=== PATIENT | male | born 1935 | race Caucasian/White ===

== ENCOUNTER 2021-03-21 14:18 | Inpatient (IN) | payer MEDICARE ==
[~2021-03-21] VITALS: Ht 172.7 cm; Wt 56.0 kg
[2021-03-21] MEDS ORDERED: OMEG1CAP50 PO (15:24)
[2021-03-21] MEDS ORDERED: MELA3TAB4 PO (15:24)
[2021-03-21] MEDS ORDERED: CARV6.25 PO (15:24)
[2021-03-21] MEDS ORDERED: CHOL10004 PO (15:24)
[2021-03-21] MEDS ORDERED: CYAN100016 SL (15:24)
[2021-03-21] MEDS ORDERED: IBUP-1742 PO (15:24)
[2021-03-21] MEDS ORDERED: VITAMIN D PO (15:24)
[2021-03-21] MEDS ORDERED: OXYB5TAB10 PO (15:24)
[2021-03-21] MEDS ORDERED: OMEGA PO (15:24)
[2021-03-21] MEDS ORDERED: POLY10DR3 EACHEYE (15:24)
[2021-03-21] MEDS ORDERED: CARV25TA2 PO (15:24)
[2021-03-21] MEDS ORDERED: MULT-245 PO (15:24)
[2021-03-21] MEDS ORDERED: ACET325T21 PO (15:24)
[2021-03-21] MEDS ORDERED: LORA0.5T21 PO (15:24)
[2021-03-21] MEDS ORDERED: HYDR10SY16 PO (15:24)
[2021-03-21] MEDS ORDERED: CELE100C PO (15:24)
[2021-03-21] MEDS ORDERED: VIT1TABL34 PO (15:36)
[2021-03-21 19:33] VITALS: BP 138/69
[2021-03-21] MEDS: POLYMYXIN/TRIMETHOPRIM OPHTH SOLUTION 10ML BOTTLE. OU SCH (21:00)
[2021-03-21] MEDS: MELATONIN 3 MG TABLET PO SCH (21:00)
[2021-03-21] MEDS: CELECOXIB 100 MG CAPSULE PO SCH (21:00)
[2021-03-21] MEDS ORDERED: hydrOXYzine HCL 10 MG/5 ML SYRUP PO SCH (21:00)
--- NOTE | 2021-03-21 21:00 | NUR ---
Admission Note with Justification for Admission to [facility] Patient admitted to [facility] for protective oversight for emergency stabilization of acute psychiatric crisis. Pt admitted from: [facility] via [facility] ER Mode of arrival: EMS Accompanied By: EMS personnel Precipitating behaviors that initiated intake and admission: Aggressive towards staff, combative, reports SI with no plan, thinks he has been kidnapped and that people are going to kill him. Description of failure of out patient attempts at stabilization in previous setting list behavior and medication trials: ER, Duloxetine Behaviors and assessment findings upon admission: Patient initially pleasant. Alert to self, and year only. Takes a long time to answer orientation questions, and needs a lot of cueing. He is confused, disorganized, and tends to wander. He denies SI/HI/delusions at present time. He denies any pain or discomfort. Once patient was brought to his room for assessments and belongings inventory, he became very irritable, questioning why he needed to change and why we needed to see his skin. He became agitated and balled his fists up at male [employer]ING MECH[employer], but did not attempt to strike him. Skin check completed, no open areas or bruising on patient in the areas he would let us see. He refused to allow inspection of coccyx and flakita area. Lump on right side of head, patient states it was skin cancer. He says it was "about 4-5 years ago." When asked about treatment, he said "Yes" but couldn't elaborate on what the treatment was. Small healing laceration on left eyebrow from a fall a few days ago. Lung sounds clear and diminished bilaterally. Bowel sounds active, patient states he had a BM yesterday. Plan: Admit for protective oversight for adjustment and stabilization of medications, behaviors and mood. Intense treatment regimen including groups, medication adjustments, therapy, consistent regimen for ADL's, self care, and sleep hygiene. Daily monitoring by Inpatient staff, Psychiatry, and Medical Physician.
[2021-03-21] MEDS ORDERED: IBUPROFEN 200 MG TABLET PO PRN (21:15)
[2021-03-22] MEDS ORDERED: MAGNESIUM HYDROXIDE 2,400 MG/30 ML ORAL.SUSP. PO PRN (00:30)
[2021-03-22] MEDS ORDERED: MAG HYDROX/AL HYDROX/SIMETH 30 ML ORAL.SUSP PO PRN (00:30)
[2021-03-22] MEDS ORDERED: ACETAMINOPHEN 325 MG TABLET PO PRN (00:30)
[2021-03-22] MEDS ORDERED: METHYL SALICYLATE/MENTHOL TOPICAL OINTMENT 57GM TUBE. TP PRN (00:30)
--- NOTE | 2021-03-22 03:40 | NUR ---
After admission assessments were completed, patient was oriented to his room and introduced to his roommate. OR ASSISTANT helped patient get ready for bed, tucked him in and set bed alarm for safety. Shortly after, patient began to get agitated and started yelling at his roommate to "Get out of my house NOW!" Patient's roommate became irritable and requested to have a new room. Patient went back to sleep and is sleeping comfortably at present time. Will continue to monitor.
[2021-03-22 05:51] VITALS: BP 160/82
[2021-03-22 06:31] LABS: BILIRUBIN,URINE NEG (NEG); CLARITY,URINE CLEAR; COLOR,URINE STRAW; GLUCOSE,URINE NEG (NEG); NITRITE,URINE NEG (NEG); UROBILINOGEN,URINE 0.2 mg/dL (0.2 mg/dL)
[2021-03-22 06:32] LABS: BACTERIA,URINE 0 /HPF (0-FEW); RBC,URINE 0 /HPF (0-2); WBC,URINE 0 /HPF (0-4)
[2021-03-22] MEDS: LORazepam 0.5 MG TABLET PO PRN (08:03)
[2021-03-22] MEDS: CARVEDILOL 3.125 MG TABLET PO SCH ×2 (08:03→18:12)
[2021-03-22] MEDS: MULTIVITAMIN with MINERAL TABLET. PO SCH (08:04)
[2021-03-22] MEDS: hydrOXYzine HCL 10 MG TABLET PO SCH ×3 (08:04→19:49)
[2021-03-22] MEDS: OMEGA-3 FATTY ACIDS/FISH OIL 1,000 MG CAPSULE. PO SCH (08:04)
[2021-03-22] MEDS: MULTIVITAMIN I-VITE TABLET. PO SCH (08:04)
[2021-03-22] MEDS: CHOLECALCIFEROL (VITAMIN D3) 1,000 UNIT TABLET PO SCH (08:05)
[2021-03-22] MEDS: CYANOCOBALAMIN (VITAMIN B-12) 1,000 MCG TABLET. PO SCH (08:48)
[2021-03-22] MEDS: OXYBUTYNIN CHLORIDE 5 MG TABLET PO SCH (08:48)
[2021-03-22] MEDS: POLYMYXIN/TRIMETHOPRIM OPHTH SOLUTION 10ML BOTTLE. OU SCH ×3 (08:49→19:49)
[2021-03-22] MEDS: CELECOXIB 100 MG CAPSULE PO SCH ×2 (08:49→19:13)
[2021-03-22] MEDS ORDERED: VITAMIN D PO SCH (09:00)
[2021-03-22] MEDS ORDERED: OMEGA PO SCH (09:00)
[2021-03-22 10:15] LABS: BASO % 1 % (0-3); EOS # 0.1 x10^3/uL (0.0-0.7); EOS % 3 % (0-3); HEMATOCRIT 37.6 % (39.0-53.0); HEMOGLOBIN 12.4 g/dL (13.0-17.5); LYMPH # 1.4 x10^3/uL (1.0-4.8); LYMPH % 28 % (24-48); MEAN CORPUSCULAR HEMOGLOBIN 32 pg (25-35); MEAN CORPUSCULAR HGB CONC 33 g/dL (31-37); MEAN CORPUSCULAR VOLUME 95 fL (79-100); MONO # 0.5 x10^3/uL (0.0-1.1); MONO % 10 % (0-9); NEUT # 2.8 x10^3uL (1.8-7.7); NEUT % 58 % (31-73); PLATELET COUNT 200 x10^3/uL (140-400); RED BLOOD COUNT 3.94 x10^6/uL (4.30-5.70); RED CELL DISTRIBUTION WIDTH 13.5 % (11.5-14.5); WHITE BLOOD COUNT 4.8 x10^3/uL (4.0-11.0)
--- NOTE | 2021-03-22 11:10 | HP ---
ADMIT DATE: 03/21/2021 PSYCHIATRIC ADMISSION HISTORY AND EVALUATION This is a late entry for date of service 03/21, covers elements not covered in my initial note 03/21. I met with the patient evening of 03/21, at length discussed with nursing staff, reviewed the chart. Previously discussed the patient with Virgen Singh, demo coordinator, on 2 separate occasions. IDENTIFYING DATA: The patient is an 86-year-old male referred to us from [facility] by Dr. Hammonds, his primary care physician, on account of worsening confusion, paranoia, agitation, aggression, behaviors deemed dangerous, unmanageable at the facility. We have been contacted by the facility earlier because of escalating behaviors that were dangerous and unmanageable, but the patient could not be admitted to inpatient psychiatric service unless 2 psychiatrists concurred on this according to the documentation of his OA paperwork. He was evaluated by 2 psychiatrists at [facility] finally on 03/21 and both agreed that he needed inpatient psychiatric hospitalization and then he was transitioned to us from On license of [facility] where he had been finally admitted from the Emergency Room. CHIEF COMPLAINT: "I am okay." The patient oriented just to himself and as I met with him evening of 03/21, he told me he had been living here for years. HISTORY OF PRESENT ILLNESS: The patient has a history of major neurocognitive disorder, Alzheimer, vascular with delusion, depression, behavioral disturbance. He has been residing at [facility] for some time. Recently, he has been getting increasingly agitated, aggressive, paranoid, combative at staff and reportedly made suicidal statements. He believes he has been kidnapped and that people are going to kill him and he is reacting to that. He has had sleep and appetite changes. No active homicidal ideation other than marked aggression, all of which is worsened from about 1 week or so. CODE STATUS: FULL CODE. ALLERGIES: HYDROCODONE, OXYCODONE, AMIODARONE, CELEXA, ATORVASTATIN. MEDICAL HISTORY: Positive for coronary artery disease, coronary artery bypass graft, history of TIAs and recurrent falls, chronic renal disease stage III, CA prostate, glaucoma, history of endarterectomy. ACCU-CHEKS: None. DIET: Heart healthy. Takes medications whole. Ambulates with walker and has had a recent fall. CURRENT PSYCHOTROPIC: Cymbalta 20 mg at bedtime. FAMILY HISTORY: Noncontributory. SOCIAL HISTORY: No history of alcohol, drug abuse, physical, sexual or elder abuse. He is not known to be a perpetrator. 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 Reliability poor. MENTAL STATUS EXAM: Oriented to himself. Insight, judgment, recent and remote memory, attention, concentration, fund of knowledge poor consistent with his diagnosis. REACTION TO HOSPITALIZATION: The patient oblivious of this. ASSETS: Supportive living at the above facility. IMPRESSION: Major neurocognitive disorder, Alzheimer, vascular with delusion, depression, behavioral disturbance, anxiety disorder, unspecified; impulse control disorder, unspecified. Rest as above. PLAN: Admit to geropsychiatry unit at [facility]. I will see the patient daily individually from a psychiatric standpoint, medical followup with Dr. Selby/Dr. Kemp. Continue current psychotropics, observe baseline, adjust as clinically indicated. We will increase the Cymbalta to 40 mg a day. Consider using Remeron if insomnia is a problem since this should help some of his agitation as well. May use Seroquel if paranoia resulting in aggression persists despite the above and may consider Depakote as a mood stabilizer if all of the above interventions fail. ESTIMATED LENGTH OF STAY: 10-12 days. DISPOSITION: Plans back to care home when stable. GOLDEN GARRETT: Miguelito TID: [id number]
[2021-03-22 12:00] LABS: THYROID STIM HORMONE (TSH) 2.198 uIU/mL (0.358-3.740)
--- NOTE | 2021-03-22 12:30 | NUR ---
Nurse Note Patient this am irritable, knocking on doors trying to open. Redirection for patient was given but unsuccessful patient recievedprn Lorazepam 0/5 mg at 0800am. Patient up in day room socializing, awake with other patients. He has been compliant with taking medications whole one at a time.
[2021-03-22 16:15] VITALS: BP 146/82
--- NOTE | 2021-03-22 18:11 | EKG ---
[address] [address] Test Date: 2021-03-22 Test Time: 17:54:03 Pat Name: LÓPEZ ESCALANTE Department: Room: [address] [place] [address] Gender: M Dietary Assistant: : [id number] Requested By: ALFREDO HARDIN Order Number: [id number] Reading MD: Measurements Intervals [place] Rate: 67 P: 56 IN: 142 QRS: 68 QRSD: 102 T: 38 QT: 412 QTc: 438 Interpretive Statements SINUS RHYTHM R-S TRANSITION ZONE IN V LEADS DISPLACED TO THE RIGHT QRS(T) CONTOUR ABNORMALITY CONSIDER INFERIOR MYOCARDIAL DAMAGE POSSIBLY ABNORMAL ECG RI6.01 No previous ECG available for comparison
[2021-03-22] MEDS: MELATONIN 3 MG TABLET PO SCH (19:49)
--- NOTE | 2021-03-22 22:02 | PDOC ---
Exam Note: Fermin Note: Please also refer to the separate dictated note~for this date of service dictated separately.~Patient seen individually. Discussed the patient with Nursing staff reviewed the chart.~Reviewed interim history and current functioning. Reviewed vital signs,~Labs/ Radiology~and current medications noted below. Continue current treatment with the changes noted in the dictated addendum note Assessment: Vital Signs/I&O: Vital Signs Date Time Temp Pulse Resp B/P (MAP) Pulse Ox O2 Delivery O2 Flow Rate FiO2 03/22/21 18:12 71 146/82 03/22/21 16:15 97.6 18 96 03/22/21 05:51 Room Air Labs: Laboratory Tests Test 03/22/21 05:40 03/22/21 09:45 Urine Collection Type Clean catch Urine Color Straw Urine Clarity Clear Urine pH 7.0 Urine Specific [place] 1.015 Urine Protein Trace (NEG-TRACE) Urine Glucose (UA) Neg mg/dL (NEG) Urine Ketones (Stick) Neg mg/dL (NEG) Urine Blood Neg (NEG) Urine Nitrite Neg (NEG) Urine Bilirubin Neg (NEG) Urine Urobilinogen Dipstick 0.2 mg/dL (0.2 mg/dL) Urine Leukocyte Esterase Neg (NEG) Urine RBC 0 /HPF (0-2) Urine WBC 0 /HPF (0-4) Urine Bacteria 0 /HPF (0-FEW) White Blood Count 4.8 x10^3/uL (4.0-11.0) Red Blood Count 3.94 x10^6/uL (4.30-5.70) L Hemoglobin 12.4 g/dL (13.0-17.5) L Hematocrit 37.6 % (39.0-53.0) L Mean Corpuscular Volume 95 fL (79-100) Mean Corpuscular Hemoglobin 32 pg (25-35) Mean Corpuscular Hemoglobin Concent 33 g/dL (31-37) Red Cell Distribution Width 13.5 % (11.5-14.5) Platelet Count 200 x10^3/uL (140-400) Neutrophils (%) (Auto) 58 % (31-73) Lymphocytes (%) (Auto) 28 % (24-48) Monocytes (%) (Auto) 10 % (0-9) H Eosinophils (%) (Auto) 3 % (0-3) Basophils (%) (Auto) 1 % (0-3) Neutrophils # (Auto) 2.8 x10^3uL (1.8-7.7) Lymphocytes # (Auto) 1.4 x10^3/uL (1.0-4.8) Monocytes # (Auto) 0.5 x10^3/uL (0.0-1.1) Eosinophils # (Auto) 0.1 x10^3/uL (0.0-0.7) Basophils # (Auto) 0.0 x10^3/uL (0.0-0.2) D-Dimer (Donna) 2.54 mg/L (0.00-0.50) H Magnesium Level 2.3 mg/dL (1.8-2.4) Iron Level 70 ug/dL (65-175) Total Iron Binding Capacity 272 ug/dL (250-450) Iron Saturation 26 % (15-34) Triglycerides Level 134 mg/dL (0-150) Cholesterol Level 241 mg/dL (0-200) H LDL Cholesterol, Calculated 166 mg/dL (0-100) H VLDL Cholesterol, Calculated 26 mg/dL (0-40) Non-HDL Cholesterol Calculated 192 mg/dL (0-129) H HDL Cholesterol 49 mg/dL (40-60) Cholesterol/HDL Ratio 4.0 Thyroid Stimulating Hormone (TSH) 2.198 uIU/mL (0.358-3.740) Current Medications: Meds: Current Medications Medications (Trade) Dose Ordered Sig/Eve Route PRN Reason Start Time Stop Time Status Last Admin Dose Admin Carvedilol (Coreg) 3.125 mg BIDWMEALS PO 03/22/21 08:00 03/22/21 18:12 Vitamin D (Vitamin D3) 1,000 unit DAILY PO 03/22/21 09:00 03/22/21 08:05 Fish Oil (Fish Oil) 1,000 mg DAILY PO 03/22/21 09:00 03/22/21 08:04 Oxybutynin Chloride (Ditropan) 5 mg DAILY PO 03/22/21 09:00 03/22/21 08:48 Multivitamins/ Calcium (Thera-M Plus) 1 tab DAILY PO 03/22/21 09:00 03/22/21 08:04 Multivitamins/ Minerals (I-Leland) 1 tab DAILY PO 03/22/21 09:00 03/22/21 08:04 Hydroxyzine HCl (Atarax) 10 mg TID PO 03/22/21 09:00 03/22/21 19:49 I have reviewed the current psychotropics carefully including drug interactions. Risk benefit ratio favors no change other than as noted in my dictated progress note. Diagnosis: Problems: (1) Impulse control disorder, unspecified (2) Anxiety disorder, unspecified (3) Dementia, vascular, with depression (4) Dementia, vascular, with delusions (5) Dementia in Alzheimer's disease with depression (6) Dementia in Alzheimer's disease with delusions (7) Dementia of the Alzheimer's type with early onset with behavioral disturbance (8) Major neurocognitive disorder ALFREDO HARDIN MD Mar 22, 2021 22:02
--- NOTE | 2021-03-22 22:02 | PDOC ---
Exam Note: Fermin Note: This is late entry for 03/21/2021. Please also refer to the separate dictated note~for this date of service dictated separately.~Patient seen individually. Discussed the patient with Nursing staff reviewed the chart.~Reviewed interim history and current functioning. Reviewed vital signs,~Labs/ Radiology~and curre nt medications noted below. Continue current treatment with the changes noted in the dictated addendum note Assessment: Vital Signs/I&O: Vital Signs Date Time Temp Pulse Resp B/P (MAP) Pulse Ox O2 Delivery O2 Flow Rate FiO2 03/22/21 18:12 71 146/82 03/22/21 16:15 97.6 18 96 03/22/21 05:51 Room Air Labs: Laboratory Tests Test 03/22/21 05:40 03/22/21 09:45 Urine Collection Type Clean catch Urine Color Straw Urine Clarity Clear Urine pH 7.0 Urine Specific [place] 1.015 Urine Protein Trace (NEG-TRACE) Urine Glucose (UA) Neg mg/dL (NEG) Urine Ketones (Stick) Neg mg/dL (NEG) Urine Blood Neg (NEG) Urine Nitrite Neg (NEG) Urine Bilirubin Neg (NEG) Urine Urobilinogen Dipstick 0.2 mg/dL (0.2 mg/dL) Urine Leukocyte Esterase Neg (NEG) Urine RBC 0 /HPF (0-2) Urine WBC 0 /HPF (0-4) Urine Bacteria 0 /HPF (0-FEW) White Blood Count 4.8 x10^3/uL (4.0-11.0) Red Blood Count 3.94 x10^6/uL (4.30-5.70) L Hemoglobin 12.4 g/dL (13.0-17.5) L Hematocrit 37.6 % (39.0-53.0) L Mean Corpuscular Volume 95 fL (79-100) Mean Corpuscular Hemoglobin 32 pg (25-35) Mean Corpuscular Hemoglobin Concent 33 g/dL (31-37) Red Cell Distribution Width 13.5 % (11.5-14.5) Platelet Count 200 x10^3/uL (140-400) Neutrophils (%) (Auto) 58 % (31-73) Lymphocytes (%) (Auto) 28 % (24-48) Monocytes (%) (Auto) 10 % (0-9) H Eosinophils (%) (Auto) 3 % (0-3) Basophils (%) (Auto) 1 % (0-3) Neutrophils # (Auto) 2.8 x10^3uL (1.8-7.7) Lymphocytes # (Auto) 1.4 x10^3/uL (1.0-4.8) Monocytes # (Auto) 0.5 x10^3/uL (0.0-1.1) Eosinophils # (Auto) 0.1 x10^3/uL (0.0-0.7) Basophils # (Auto) 0.0 x10^3/uL (0.0-0.2) D-Dimer (Donna) 2.54 mg/L (0.00-0.50) H Magnesium Level 2.3 mg/dL (1.8-2.4) Iron Level 70 ug/dL (65-175) Total Iron Binding Capacity 272 ug/dL (250-450) Iron Saturation 26 % (15-34) Triglycerides Level 134 mg/dL (0-150) Cholesterol Level 241 mg/dL (0-200) H LDL Cholesterol, Calculated 166 mg/dL (0-100) H VLDL Cholesterol, Calculated 26 mg/dL (0-40) Non-HDL Cholesterol Calculated 192 mg/dL (0-129) H HDL Cholesterol 49 mg/dL (40-60) Cholesterol/HDL Ratio 4.0 Thyroid Stimulating Hormone (TSH) 2.198 uIU/mL (0.358-3.740) Current Medications: Meds: Current Medications Medications (Trade) Dose Ordered Sig/Eve Route PRN Reason Start Time Stop Time Status Last Admin Dose Admin Carvedilol (Coreg) 3.125 mg BIDWMEALS PO 03/22/21 08:00 03/22/21 18:12 Vitamin D (Vitamin D3) 1,000 unit DAILY PO 03/22/21 09:00 03/22/21 08:05 Fish Oil (Fish Oil) 1,000 mg DAILY PO 03/22/21 09:00 03/22/21 08:04 Oxybutynin Chloride (Ditropan) 5 mg DAILY PO 03/22/21 09:00 03/22/21 08:48 Multivitamins/ Calcium (Thera-M Plus) 1 tab DAILY PO 03/22/21 09:00 03/22/21 08:04 Multivitamins/ Minerals (I-Leland) 1 tab DAILY PO 03/22/21 09:00 03/22/21 08:04 Hydroxyzine HCl (Atarax) 10 mg TID PO 03/22/21 09:00 03/22/21 19:49 I have reviewed the current psychotropics carefully including drug interactions. Risk benefit ratio favors no change other than as noted in my dictated progress note. Diagnosis: Problems: (1) Major neurocognitive disorder (2) Dementia in Alzheimer's disease with delusions (3) Dementia in Alzheimer's disease with depression (4) Dementia of the Alzheimer's type with early onset with behavioral distu rbance (5) Dementia, vascular, with delusions (6) Dementia, vascular, with depression (7) Anxiety disorder, unspecified (8) Impulse control disorder, unspecified ALFREDO HARDIN MD Mar 22, 2021 22:02
--- NOTE | 2021-03-22 22:38 | NUR ---
Patient is wandering around the unit on assumption of care. He is restless, disorganized, confused. Patient has exhibited no irritability or agitation so far this shift. He denies any pain or discomfort when asked. Denies SI/HI. He has voiced no delusions. Patient appears to be sleeping comfortably at present time. Will continue to monitor.
[2021-03-23 01:06] LABS: HEMOGLOBIN A1C 5.5 % (4.8-5.6)
--- NOTE | 2021-03-23 03:39 | CONS ---
DATE OF CONSULTATION: 03/22/2021 REASON FOR CONSULTATION: Medical management. HISTORY OF PRESENT ILLNESS: The patient is an 86-year-old male patient who is a resident at [facility] and was referred to this unit by his primary care physician on account of worsening confusion, paranoia, agitation, aggression, behaviors were deemed dangerous, unmanageable at the facility. Apparently, the patient is known to have history of major neurocognitive disorder, Alzheimer, vascular with delusion, depression, behavioral disturbances and apparently has been living in assisted [facility] for some time; however, recently he has been getting increasingly agitated, aggressive, paranoid, combative at staff and reportedly made suicidal statements. He believes he has been kidnapped that people are going to kill him. He is reacting to that. PAST MEDICAL HISTORY: Significant for coronary artery disease, chronic kidney disease, stage III, recurrent falls, TIA, glaucoma and prostate cancer. PAST SURGICAL HISTORY: Significant for coronary artery bypass surgery and endarterectomy. ALLERGIES: HE IS ALLERGIC TO AMIODARONE, ATORVASTATIN, CITALOPRAM, HYDROCODONE AND OXYCODONE. MEDICATIONS: He is currently on the following medication omega 3 fatty acids 1000 mg once a day, carvedilol 3.125 mg twice a day with meals, Celebrex 50 mg twice a day, ibuprofen 200 mg every 6 hours, acetaminophen 650 mg every 6 hours, lorazepam 0.5 mg every 6 hours, hydroxyzine 10 mg in 5 mL syrup 3 times a day, Polymyxin B. one drop to each eye 3 times a day, oxybutynin chloride 5 mg daily, cyanocobalamin 1000 mcg tablet once a day, cholecalciferol-vitamin D3 25 mcg once a day, multivitamin 1 tablet once a day, melatonin 3 mg at bedtime, PreserVision AREDS tablet 1 tablet daily. FAMILY HISTORY: Noncontributory. SOCIAL HISTORY: He is a resident at [facility]. He does not smoke, drink alcohol or use recreational drugs. REVIEW OF SYSTEMS: Unobtainable. PHYSICAL EXAMINATION: GENERAL: When I examined him, he was sitting at the edge of the bed comfortably, in no apparent respiratory distress. There was no pallor, jaundice, cyanosis or thyromegaly. No jugular venous distention. No limb edema. VITAL SIGNS: His heart rate was 71, blood pressure is 146/82, temperature 97.6, respiratory rate was 18 and oxygen saturation was 96%. HEAD, EYES, EARS, NOSE, AND THROAT: Normocephalic, atraumatic. NECK: Supple. HEART: Showed normal first and second heart sound. No gallop or murmur. CHEST: Clear to auscultation. No crepitation or rhonchi. ABDOMEN: Slightly distended, soft, nontender. NEUROLOGIC: He is awake, alert, oriented to himself. All his cranial nerves are intact. He moves extremities without difficulty. He ambulates without assistance or assistive devices. LABORATORY DATA: This morning showed a white cell count of 4800, hemoglobin 12, hematocrit 37, MCV 95 and platelet count 200,000. His chemistry, his serum iron, total iron binding capacity and iron saturation all consistent with a replete iron stores. Serum triglycerides 134, total cholesterol was 241, LDL 166, VLDL was 26, HDL was 49. The ratio was 4. His TSH was 2.198. ASSESSMENT AND PLAN: In summary, this is an 86-year-old who was admitted on account of worsening confusion, paranoia, agitation and aggression. Medically, he seemed to be generally stable. Not all his medications are available, so I will review them once they become available and make any recommendations as needed. Thank you, Dr. Almazan, for allowing me to participate in the care of the patient. JAY GARRETT: Linda TID: [id number]
[2021-03-23 05:35] VITALS: BP 145/74
[2021-03-23] MEDS: CYANOCOBALAMIN (VITAMIN B-12) 1,000 MCG TABLET. PO SCH (08:33)
[2021-03-23] MEDS: OMEGA-3 FATTY ACIDS/FISH OIL 1,000 MG CAPSULE. PO SCH (08:33)
[2021-03-23] MEDS: CHOLECALCIFEROL (VITAMIN D3) 1,000 UNIT TABLET PO SCH (08:33)
[2021-03-23] MEDS: hydrOXYzine HCL 10 MG TABLET PO SCH ×3 (08:33→20:11)
[2021-03-23] MEDS: MULTIVITAMIN I-VITE TABLET. PO SCH (08:33)
[2021-03-23] MEDS: MULTIVITAMIN with MINERAL TABLET. PO SCH (08:34)
[2021-03-23] MEDS: OXYBUTYNIN CHLORIDE 5 MG TABLET PO SCH (08:34)
[2021-03-23] MEDS: CARVEDILOL 3.125 MG TABLET PO SCH ×2 (08:34→17:00)
[2021-03-23] MEDS: CELECOXIB 100 MG CAPSULE PO SCH (09:00)
[2021-03-23] MEDS: POLYMYXIN/TRIMETHOPRIM OPHTH SOLUTION 10ML BOTTLE. OU SCH ×2 (09:00→13:43)
[2021-03-23 10:59] LABS: ALBUMIN/GLOBULIN RATIO 1.1 (1.0-1.7); CALCIUM 9.4 mg/dL (8.5-10.1); CREATININE 2.7 mg/dL (0.7-1.3); GFR 22.6; POTASSIUM 4.4 mmol/L (3.5-5.1); TOTAL BILIRUBIN 0.5 mg/dL (0.2-1.0); TOTAL PROTEIN 7.6 g/dL (6.4-8.2)
[2021-03-23] MEDS: LORazepam 0.5 MG TABLET PO PRN (14:03)
--- NOTE | 2021-03-23 14:03 | NUR ---
Pt agitated after lunch. Attempted to take a male peers watch and glasses. Pt belligerent an was un redirectable. P escorted o day room. Ativan given. Took without difficulty.
[2021-03-23 16:05] VITALS: BP 146/82
--- NOTE | 2021-03-23 16:57 | NUR ---
Pt has been more calm and pleasant this afternoon.
[2021-03-23] MEDS: MELATONIN 3 MG TABLET PO SCH (20:12)
--- NOTE | 2021-03-23 21:59 | PDOC ---
Exam Note: Fermin Note: Please also refer to the separate dictated note~for this date of service dictated separately.~Patient seen individually. Discussed the patient with Nursing staff reviewed the chart.~Reviewed interim history and current functioning. Reviewed vital signs,~Labs/ Radiology~and current medications noted below. Continue current treatment with the changes noted in the dictated addendum note Assessment: Vital Signs/I&O: Vital Signs Date Time Temp Pulse Resp B/P (MAP) Pulse Ox O2 Delivery O2 Flow Rate FiO2 03/23/21 17:00 69 146/82 03/23/21 16:05 98.6 20 97 Room Air I & O 03/22/21 03/22/21 03/23/21 15:00 23:00 07:00 Intake Total 480 ml 240 ml Balance 480 ml 240 ml Labs: Laboratory Tests Test 03/23/21 10:20 Sodium Level 140 mmol/L (136-145) Potassium Level 4.4 mmol/L (3.5-5.1) Chloride Level 105 mmol/L (98-107) Carbon Dioxide Level 29 mmol/L (21-32) Anion Gap 6 (6-14) Blood Urea Nitrogen 54 mg/dL (8-26) H Creatinine 2.7 mg/dL (0.7-1.3) H Estimated GFR (Cockcroft-Gault) 22.6 BUN/Creatinine Ratio 20 (6-20) Glucose Level 71 mg/dL (70-99) Calcium Level 9.4 mg/dL (8.5-10.1) Total Bilirubin 0.5 mg/dL (0.2-1.0) Aspartate Amino Transferase (AST) 12 U/L (15-37) L Alanine Aminotransferase (ALT) 25 U/L (16-63) Alkaline Phosphatase 95 U/L (46-116) Total Protein 7.6 g/dL (6.4-8.2) Albumin 4.0 g/dL (3.4-5.0) Albumin/Globulin Ratio 1.1 (1.0-1.7) Current Medications: Meds: Laboratory Tests Test 03/23/21 10:20 Sodium Level 140 mmol/L Potassium Level 4.4 mmol/L Chloride Level 105 mmol/L Carbon Dioxide Level 29 mmol/L Anion Gap 6 Blood Urea Nitrogen 54 mg/dL Creatinine 2.7 mg/dL Estimated GFR (Cockcroft-Gault) 22.6 BUN/Creatinine Ratio 20 Glucose Level 71 mg/dL Calcium Level 9.4 mg/dL Total Bilirubin 0.5 mg/dL Aspartate Amino Transf (AST/SGOT) 12 U/L Alanine Aminotransferase (ALT/SGPT) 25 U/L Alkaline Phosphatase 95 U/L Total Protein 7.6 g/dL Albumin 4.0 g/dL Albumin/Globulin Ratio 1.1 Current Medications Medications (Trade) Dose Ordered Sig/Eve Route PRN Reason Start Time Stop Time Status Last Admin Dose Admin Acetaminophen (Tylenol) 650 mg PRN Q6HRS PRN PO PAIN/FEVER 03/21/21 20:00 Carvedilol (Coreg) 3.125 mg BIDWMEALS PO 03/22/21 08:00 03/23/21 17:00 Celecoxib (CeleBREX) 50 mg BID PO 03/21/21 21:00 03/23/21 19:59 DC Vitamin D (Vitamin D3) 1,000 unit DAILY PO 03/22/21 09:00 03/23/21 08:33 Hydroxyzine HCl (Atarax Oral Syrup) 10 mg TID PO 03/21/21 21:00 03/21/21 21:55 DC Ibuprofen (Motrin) 200 mg PRN Q6HRS PRN PO INFLAMMATION 03/21/21 21:15 Lorazepam (Ativan) 0.5 mg PRN Q6HRS PRN PO ANXIETY 03/21/21 20:00 03/23/21 14:59 DC 03/23/21 14:03 Melatonin (Melatonin) 3 mg QHS PO 03/21/21 21:00 03/23/21 20:12 Fish Oil (Fish Oil) 1,000 mg DAILY PO 03/22/21 09:00 03/23/21 08:33 Oxybutynin Chloride (Ditropan) 5 mg DAILY PO 03/22/21 09:00 03/23/21 08:34 Polymyxin/ Trimethoprim Sulfate (Polytrim) 1 drop TID OU 03/21/21 21:00 03/23/21 19:59 DC Cyanocobalamin (Vitamin B-12) 1,000 mcg DAILY PO 03/22/21 09:00 03/23/21 08:33 Multivitamins/ Calcium (Thera-M Plus) 1 tab DAILY PO 03/22/21 09:00 03/23/21 08:34 Multivitamins/ Minerals (I-Leland) 1 tab DAILY PO 03/22/21 09:00 03/23/21 08:33 Non-Formulary Medication ([Vitamin D + [place] 3] ) 1 tab DAILY PO 03/22/21 09:00 03/21/21 21:16 DC Hydroxyzine HCl (Atarax) 10 mg TID PO 03/22/21 09:00 03/23/21 20:11 Acetaminophen (Tylenol) 650 mg PRN Q6HRS PRN PO MILD PAIN / TEMP > 100.3'F 03/22/21 00:30 UNV Multi-Ingredient Ointment (Analgesic [place]) 1 sindi PRN QID PRN TP MUSCLE PAIN 03/22/21 00:30 Al Hydroxide/Mg Hydroxide (Mylanta Plus Xs) 15 ml PRN AFTMEALHC PRN PO DYSPEPSIA 03/22/21 00:30 Magnesium Hydroxide (Milk Of Magnesia) 2,400 mg PRN QHS PRN PO CONSTIPATION 03/22/21 00:30 Olanzapine (ZyPREXA ZYDIS) 2.5 mg PRN Q2HR PRN PO PSYCHOSIS 03/23/21 15:00 03/23/21 20:11 Sertraline HCl (Zoloft) 25 mg DAILY PO 03/24/21 09:00 03/27/21 08:00 Sertraline HCl (Zoloft) 50 mg DAILY PO 03/27/21 09:00 Current Medications Medications (Trade) Dose Ordered Sig/Eve Route PRN Reason Start Time Stop Time Status Last Admin Dose Admin Olanzapine (ZyPREXA ZYDIS) 2.5 mg PRN Q2HR PRN PO PSYCHOSIS 03/23/21 15:00 03/23/21 20:11 I have reviewed the current psychotropics carefully including drug interactions. Risk benefit ratio favors no change other than as noted in my dictated progress note. Diagnosis: Problems: (1) Impulse control disorder, unspecified (2) Anxiety disorder, unspecified (3) Dementia, vascular, with depression (4) Dementia, vascular, with delusions (5) Dementia in Alzheimer's disease with depression (6) Dementia in Alzheimer's disease with delusions (7) Dementia of the Alzheimer's type with early onset with behavioral disturbance (8) Major neurocognitive disorder ALFREDO HARDIN MD Mar 23, 2021:59
--- NOTE | 2021-03-23 22:44 | NUR ---
Patient is wandering around the unit on assumption of care. He is restless, disorganized, confused. Patient has exhibited no irritability or agitation so far this shift. He was cooperative with shower and HS cares. He denies any pain or discomfort when asked. Denies SI/HI. He has voiced no delusions. Patient appears to be sleeping comfortably at present time. Will continue to monitor.
[2021-03-24 05:39] VITALS: BP 159/79
[2021-03-24] MEDS: MULTIVITAMIN I-VITE TABLET. PO SCH (09:02)
[2021-03-24] MEDS: CYANOCOBALAMIN (VITAMIN B-12) 1,000 MCG TABLET. PO SCH (09:02)
[2021-03-24] MEDS: CHOLECALCIFEROL (VITAMIN D3) 1,000 UNIT TABLET PO SCH (09:03)
[2021-03-24] MEDS: CARVEDILOL 3.125 MG TABLET PO SCH ×2 (09:03→17:30)
[2021-03-24] MEDS: MULTIVITAMIN with MINERAL TABLET. PO SCH (09:03)
[2021-03-24] MEDS: OXYBUTYNIN CHLORIDE 5 MG TABLET PO SCH (09:03)
[2021-03-24] MEDS: hydrOXYzine HCL 10 MG TABLET PO SCH ×3 (09:03→20:48)
[2021-03-24] MEDS: OMEGA-3 FATTY ACIDS/FISH OIL 1,000 MG CAPSULE. PO SCH (09:03)
[2021-03-24] MEDS: SERTRALINE 25 MG TABLET. PO SCH (09:03)
--- NOTE | 2021-03-24 09:07 | PDOC ---
Exam Note: Fermin Note: This note is a late entry for 03/22/2021 covers elements not covered in my initial note. Subjective: The patient was seen individually in the evening of 03/22/2021 with Pat CAICEDO, discussed and reviewed the chart. He slept 5 hours previous night. The patient has not been aggressive, somewhat confused. He was combative and aggressive in the morning received Ativan p.r.n. and did better rest of the day. Review of Systems: Ambulates with walker. No CV, , pulmonary, eye, ENT system symptoms on review. Mental Status Exam: The patient is just oriented to himself. I met with him in his room, walking away almost midway in our conversations oblivious of the fact that he was just going away and I followed him. Insight and judgment, recent and remote memory, attention and concentration, fund of knowledge is poor consistent with his diagnoses. Laboratory Data: Reviewed. Impression: Major neurocognitive disorder Alzheimer vascular with delusion, depression, behavioral disturbance. Anxiety disorder unspecified. Impulse control disorder unspecified. Plan: No change from initial note. Assessment: Vital Signs/I&O: Vital Signs Date Time Temp Pulse Resp B/P (MAP) Pulse Ox O2 Delivery O2 Flow Rate FiO2 03/24/21 09:03 70 159/79 03/24/21 05:39 98.0 16 99 03/23/21 16:05 Room Air I & O 03/23/21 03/23/21 03/24/21 15:00 23:00 07:00 Intake Total 480 ml 150 ml 120 ml Balance 480 ml 150 ml 120 ml Labs: Laboratory Tests Test 03/23/21 10:20 Sodium Level 140 mmol/L (136-145) Potassium Level 4.4 mmol/L (3.5-5.1) Chloride Level 105 mmol/L (98-107) Carbon Dioxide Level 29 mmol/L (21-32) Anion Gap 6 (6-14) Blood Urea Nitrogen 54 mg/dL (8-26) H Creatinine 2.7 mg/dL (0.7-1.3) H Estimated GFR (Cockcroft-Gault) 22.6 BUN/Creatinine Ratio 20 (6-20) Glucose Level 71 mg/dL (70-99) Calcium Level 9.4 mg/dL (8.5-10.1) Total Bilirubin 0.5 mg/dL (0.2-1.0) Aspartate Amino Transferase (AST) 12 U/L (15-37) L Alanine Aminotransferase (ALT) 25 U/L (16-63) Alkaline Phosphatase 95 U/L (46-116) Total Protein 7.6 g/dL (6.4-8.2) Albumin 4.0 g/dL (3.4-5.0) Albumin/Globulin Ratio 1.1 (1.0-1.7) Current Medications: Meds: Laboratory Tests Test 03/23/21 10:20 Sodium Level 140 mmol/L Potassium Level 4.4 mmol/L Chloride Level 105 mmol/L Carbon Dioxide Level 29 mmol/L Anion Gap 6 Blood Urea Nitrogen 54 mg/dL Creatinine 2.7 mg/dL Estimated GFR (Cockcroft-Gault) 22.6 BUN/Creatinine Ratio 20 Glucose Level 71 mg/dL Calcium Level 9.4 mg/dL Total Bilirubin 0.5 mg/dL Aspartate Amino Transf (AST/SGOT) 12 U/L Alanine Aminotransferase (ALT/SGPT) 25 U/L Alkaline Phosphatase 95 U/L Total Protein 7.6 g/dL Albumin 4.0 g/dL Albumin/Globulin Ratio 1.1 Current Medications Medications (Trade) Dose Ordered Sig/Eve Route PRN Reason Start Time Stop Time Status Last Admin Dose Admin Acetaminophen (Tylenol) 650 mg PRN Q6HRS PRN PO PAIN/FEVER 03/21/21 20:00 Carvedilol (Coreg) 3.125 mg BIDWMEALS PO 03/22/21 08:00 03/24/21 09:03 Celecoxib (CeleBREX) 50 mg BID PO 03/21/21 21:00 03/23/21 19:59 DC Vitamin D (Vitamin D3) 1,000 unit DAILY PO 03/22/21 09:00 03/24/21 09:03 Hydroxyzine HCl (Atarax Oral Syrup) 10 mg TID PO 03/21/21 21:00 03/21/21 21:55 DC Ibuprofen (Motrin) 200 mg PRN Q6HRS PRN PO INFLAMMATION 03/21/21 21:15 Lorazepam (Ativan) 0.5 mg PRN Q6HRS PRN PO ANXIETY 03/21/21 20:00 03/23/21 14:59 DC 03/23/21 14:03 Melatonin (Melatonin) 3 mg QHS PO 03/21/21 21:00 03/23/21 20:12 Fish Oil (Fish Oil) 1,000 mg DAILY PO 03/22/21 09:00 03/24/21 09:03 Oxybutynin Chloride (Ditropan) 5 mg DAILY PO 03/22/21 09:00 03/24/21 09:03 Polymyxin/ Trimethoprim Sulfate (Polytrim) 1 drop TID OU 03/21/21 21:00 03/23/21 19:59 DC Cyanocobalamin (Vitamin B-12) 1,000 mcg DAILY PO 03/22/21 09:00 03/24/21 09:02 Multivitamins/ Calcium (Thera-M Plus) 1 tab DAILY PO 03/22/21 09:00 03/24/21 09:03 Multivitamins/ Minerals (I-Leland) 1 tab DAILY PO 03/22/21 09:00 03/24/21 09:02 Non-Formulary Medication ([Vitamin D + [place] 3] ) 1 tab DAILY PO 03/22/21 09:00 03/21/21 21:16 DC Hydroxyzine HCl (Atarax) 10 mg TID PO 03/22/21 09:00 03/24/21 09:03 Acetaminophen (Tylenol) 650 mg PRN Q6HRS PRN PO MILD PAIN / TEMP > 100.3'F 03/22/21 00:30 UNV Multi-Ingredient Ointment (Analgesic [place]) 1 sindi PRN QID PRN TP MUSCLE PAIN 03/22/21 00:30 Al Hydroxide/Mg Hydroxide (Mylanta Plus Xs) 15 ml PRN AFTMEALHC PRN PO DYSPEPSIA 03/22/21 00:30 Magnesium Hydroxide (Milk Of Magnesia) 2,400 mg PRN QHS PRN PO CONSTIPATION 03/22/21 00:30 Olanzapine (ZyPREXA ZYDIS) 2.5 mg PRN Q2HR PRN PO PSYCHOSIS 03/23/21 15:00 03/23/21 20:11 Sertraline HCl (Zoloft) 25 mg DAILY PO 03/24/21 09:00 03/27/21 08:00 03/24/21 09:03 Sertraline HCl (Zoloft) 50 mg DAILY PO 03/27/21 09:00 Current Medications Medications (Trade) Dose Ordered Sig/Eve Route PRN Reason Start Time Stop Time Status Last Admin Dose Admin Olanzapine (ZyPREXA ZYDIS) 2.5 mg PRN Q2HR PRN PO PSYCHOSIS 03/23/21 15:00 03/23/21 20:11 Sertraline HCl (Zoloft) 25 mg DAILY PO 03/24/21 09:00 03/27/21 08:00 03/24/21 09:03 I have reviewed the current psychotropics carefully including drug interactions. Risk benefit ratio favors no change other than as noted in my dictated progress note. Diagnosis: Problems: (1) Impulse control disorder, unspecified (2) Anxiety disorder, unspecified (3) Dementia, vascular, with depression (4) Dementia, vascular, with delusions (5) Dementia in Alzheimer's disease with depression (6) Dementia in Alzheimer's disease with delusions (7) Dementia of the Alzheimer's type with early onset with behavioral disturbance (8) Major neurocognitive disorder ALFREDO HARDIN MD Mar 24, 2021 09:07
--- NOTE | 2021-03-24 09:37 | PDOC ---
Exam Note: Fermin Note: This note is a late entry for 03/23/2021 covers elements not covered in my initial note. Subjective: The patient was seen individually in the evening of 03/23/2021 with Maru CAICEDO, discussed and reviewed the chart. He slept 5-3/4 hours previous night. Overall the patient has been somewhat anxious, abrasive this morning. Nursing staff had paged me as an emergency. He received Ativan p.r.n. but is a fall risk and we will change it to Zyprexa Zydis 2.5 mg q.2h. p.r.n. psychosis and agitation, max 10 mg in 24 hours. Review of Systems: No CV, , pulmonary, eye, ENT system symptoms on review. Mental Status Exam: The patient is just oriented to himself. Insight and judgment, recent and remote memory, attention and concentration, fund of knowledge is poor consistent with his diagnoses. Laboratory Data: Reviewed. Impression: Major neurocognitive disorder Alzheimer vascular with delusion, depression, behavioral disturbance. Anxiety disorder unspecified. Impulse control disorder unspecified. Plan: Start Zoloft 25 mg a day for 3 days, then 50 mg a day. Continue Atarax 10 mg t.i.d., melatonin 3 mg h.s. Make further adjustments in Zoloft as clinically indicated. Consider Seroquel as a mood stabilizer. Assessment: Vital Signs/I&O: Vital Signs Date Time Temp Pulse Resp B/P (MAP) Pulse Ox O2 Delivery O2 Flow Rate FiO2 03/24/21 09:03 70 159/79 03/24/21 05:39 98.0 16 99 03/23/21 16:05 Room Air I & O 03/23/21 03/23/21 03/24/21 15:00 23:00 07:00 Intake Total 480 ml 150 ml 120 ml Balance 480 ml 150 ml 120 ml Labs: Laboratory Tests Test 03/23/21 10:20 Sodium Level 140 mmol/L (136-145) Potassium Level 4.4 mmol/L (3.5-5.1) Chloride Level 105 mmol/L (98-107) Carbon Dioxide Level 29 mmol/L (21-32) Anion Gap 6 (6-14) Blood Urea Nitrogen 54 mg/dL (8-26) H Creatinine 2.7 mg/dL (0.7-1.3) H Estimated GFR (Cockcroft-Gault) 22.6 BUN/Creatinine Ratio 20 (6-20) Glucose Level 71 mg/dL (70-99) Calcium Level 9.4 mg/dL (8.5-10.1) Total Bilirubin 0.5 mg/dL (0.2-1.0) Aspartate Amino Transferase (AST) 12 U/L (15-37) L Alanine Aminotransferase (ALT) 25 U/L (16-63) Alkaline Phosphatase 95 U/L (46-116) Total Protein 7.6 g/dL (6.4-8.2) Albumin 4.0 g/dL (3.4-5.0) Albumin/Globulin Ratio 1.1 (1.0-1.7) Current Medications: Meds: Laboratory Tests Test 03/23/21 10:20 Sodium Level 140 mmol/L Potassium Level 4.4 mmol/L Chloride Level 105 mmol/L Carbon Dioxide Level 29 mmol/L Anion Gap 6 Blood Urea Nitrogen 54 mg/dL Creatinine 2.7 mg/dL Estimated GFR (Cockcroft-Gault) 22.6 BUN/Creatinine Ratio 20 Glucose Level 71 mg/dL Calcium Level 9.4 mg/dL Total Bilirubin 0.5 mg/dL Aspartate Amino Transf (AST/SGOT) 12 U/L Alanine Aminotransferase (ALT/SGPT) 25 U/L Alkaline Phosphatase 95 U/L Total Protein 7.6 g/dL Albumin 4.0 g/dL Albumin/Globulin Ratio 1.1 Current Medications Medications (Trade) Dose Ordered Sig/Eve Route PRN Reason Start Time Stop Time Status Last Admin Dose Admin Acetaminophen (Tylenol) 650 mg PRN Q6HRS PRN PO PAIN/FEVER 03/21/21 20:00 Carvedilol (Coreg) 3.125 mg BIDWMEALS PO 03/22/21 08:00 03/24/21 09:03 Celecoxib (CeleBREX) 50 mg BID PO 03/21/21 21:00 03/23/21 19:59 DC Vitamin D (Vitamin D3) 1,000 unit DAILY PO 03/22/21 09:00 03/24/21 09:03 Hydroxyzine HCl (Atarax Oral Syrup) 10 mg TID PO 03/21/21 21:00 03/21/21 21:55 DC Ibuprofen (Motrin) 200 mg PRN Q6HRS PRN PO INFLAMMATION 03/21/21 21:15 Lorazepam (Ativan) 0.5 mg PRN Q6HRS PRN PO ANXIETY 03/21/21 20:00 03/23/21 14:59 DC 03/23/21 14:03 Melatonin (Melatonin) 3 mg QHS PO 03/21/21 21:00 03/23/21 20:12 Fish Oil (Fish Oil) 1,000 mg DAILY PO 03/22/21 09:00 03/24/21 09:03 Oxybutynin Chloride (Ditropan) 5 mg DAILY PO 03/22/21 09:00 03/24/21 09:03 Polymyxin/ Trimethoprim Sulfate (Polytrim) 1 drop TID OU 03/21/21 21:00 03/23/21 19:59 DC Cyanocobalamin (Vitamin B-12) 1,000 mcg DAILY PO 03/22/21 09:00 03/24/21 09:02 Multivitamins/ Calcium (Thera-M Plus) 1 tab DAILY PO 03/22/21 09:00 03/24/21 09:03 Multivitamins/ Minerals (I-[place]) 1 tab DAILY PO 03/22/21 09:00 03/24/21 09:02 Non-Formulary Medication ([Vitamin D + [place] 3] ) 1 tab DAILY PO 03/22/21 09:00 03/21/21 21:16 DC Hydroxyzine HCl (Atarax) 10 mg TID PO 03/22/21 09:00 03/24/21 09:03 Acetaminophen (Tylenol) 650 mg PRN Q6HRS PRN PO MILD PAIN / TEMP > 100.3'F 03/22/21 00:30 UNV Multi-Ingredient Ointment (Analgesic [place]) 1 sindi PRN QID PRN TP MUSCLE PAIN 03/22/21 00:30 Al Hydroxide/Mg Hydroxide (Mylanta Plus Xs) 15 ml PRN AFTMEALHC PRN PO DYSPEPSIA 03/22/21 00:30 Magnesium Hydroxide (Milk Of Magnesia) 2,400 mg PRN QHS PRN PO CONSTIPATION 03/22/21 00:30 Olanzapine (ZyPREXA ZYDIS) 2.5 mg PRN Q2HR PRN PO PSYCHOSIS 03/23/21 15:00 03/23/21 20:11 Sertraline HCl (Zoloft) 25 mg DAILY PO 03/24/21 09:00 03/27/21 08:00 03/24/21 09:03 Sertraline HCl (Zoloft) 50 mg DAILY PO 03/27/21 09:00 Current Medications Medications (Trade) Dose Ordered Sig/Eve Route PRN Reason Start Time Stop Time Status Last Admin Dose Admin Olanzapine (ZyPREXA ZYDIS) 2.5 mg PRN Q2HR PRN PO PSYCHOSIS 03/23/21 15:00 03/23/21 20:11 Sertraline HCl (Zoloft) 25 mg DAILY PO 03/24/21 09:00 03/27/21 08:00 03/24/21 09:03 I have reviewed the current psychotropics carefully including drug interactions. Risk benefit ratio favors no change other than as noted in my dictated progress note. Diagnosis: Problems: (1) Impulse control disorder, unspecified (2) Anxiety disorder, unspecified (3) Dementia, vascular, with depression (4) Dementia, vascular, with delusions (5) Dementia in Alzheimer's disease with depression (6) Dementia in Alzheimer's disease with delusions (7) Dementia of the Alzheimer's type with early onset with behavioral disturbance (8) Major neurocognitive disorder ALFREDO HARDIN MD Mar 24, 2021 09:37
--- NOTE | 2021-03-24 10:37 | NUR ---
Ryan has [facility] medicare advantage plan. Call placed to [facility] to inform of Ryan's admission. Authorization number is [id number]. Ryan is authorized from 03/21 thru 03/25/21. Concurrent review is due on 03/25/21 by calling Maura Casper at [phone]. [phone]. Call reference number for today's call is Austin Loyd 03/24/21.
--- NOTE | 2021-03-24 12:49 | NUR ---
WEEKLY ACTIVITY THERAPY NOTE Date of Admission:03/21/21 Date of AT Assessment: TBD Precipitating behaviors that initiated intake and admission: Aggressive towards staff, combative, reports SI with no plan, thinks he has been kidnapped and that people are going to kill him. Goal aimed: TBD Initial Goal: TBD Weekly progress towards goal: NA Group participation level: NA Weekly highlights: arrived on [facility] Behaviors observed: new patient Plan: meet/asses pt Beneficial adaptations: observation needed
--- NOTE | 2021-03-24 13:15 | NUR ---
ACTIVITY THERAPY ASSESSMENT completed based on notes, observation and interview. AT introduced self to pt and he said that he was about to go to sleep. AT asked pt if she could ask him a few quick questions and pt became irritable. Pt said that he did not want AT around him anymore. AT concluded assessment with pt. Per notes pt has been resistive and irritable with staff. Pt is disorganized and requires lots of queuing to stay on task. Initial goal aimed to increase stress management and relaxation skills. pt will participate in at least five individual or group Activity Therapy sessions before discharge. Addendum: 04/07/21 at 1318 by JARED CARVAJAL ACT Goal changed 04/07:Pt will participate in at least three individual or group Activity Therapy sessions per week.
[2021-03-24] MEDS: ACETAMINOPHEN 325 MG TABLET PO PRN ×2 (15:49→20:51)
[2021-03-24 16:12] VITALS: BP 138/81
[2021-03-24] MEDS: DIVALPROEX 125 MG CAP.SPRINK PO SCH (17:31)
[2021-03-24] MEDS: MELATONIN 3 MG TABLET PO SCH (20:48)
--- NOTE | 2021-03-24 21:51 | NUR ---
Patient was already confused at the beginning of shift asking about someone who was going to come get him out of here. Patient would not understand when explained to that he has to spend the night at the hospital and has been spending other nights here. He wandered the hallways and was intermittently exit seeking, with some agitation and verbal aggression. Patient was redirected a few times and would comply sometimes or try to fight at other times. He also exhibited some inappropriateness, trying to grab female staff around their breasts or bottom area. He was compliant with all his medications including some prn medication to help with his agitation. Patient was eventually helped to his bed where he remained resting with eyes closed, breathing normally. Will continue to monitor. Addendum: 03/25/21 at 0013 by NEMO CANTOR RN Patient woke up to use the bathroom and when staff came to help, he asked one of the female staff if they could have sex with him; Upon refusal by the staff patient was verbally aggressive for a bit but complied with being tucked in, and then asked if the female staff could crawl into bed with her and was frustrated when the staff declined. He is currently in bed resting with eyes closed.
--- NOTE | 2021-03-24 22:05 | PDOC ---
Exam Note: Fermin Note: Please also refer to the separate dictated note~for this date of service dictated separately.~Patient seen individually. Discussed the patient with Nursing staff reviewed the chart.~Reviewed interim history and current functioning. Reviewed vital signs,~Labs/ Radiology~and current medications noted below. Continue current treatment with the changes noted in the dictated addendum note Assessment: Vital Signs/I&O: Vital Signs Date Time Temp Pulse Resp B/P (MAP) Pulse Ox O2 Delivery O2 Flow Rate FiO2 03/24/21 17:30 87 138/81 03/24/21 16:12 97.6 18 94 03/23/21 16:05 Room Air I & O 03/23/21 03/23/21 03/24/21 14:59 22:59 06:59 Intake Total 480 ml 150 ml 120 ml Balance 480 ml 150 ml 120 ml Current Medications: Meds: Current Medications Medications (Trade) Dose Ordered Sig/Eve Route PRN Reason Start Time Stop Time Status Last Admin Dose Admin Acetaminophen (Tylenol) 650 mg PRN Q6HRS PRN PO PAIN/FEVER 03/21/21 20:00 03/24/21 20:51 Carvedilol (Coreg) 3.125 mg BIDWMEALS PO 03/22/21 08:00 03/24/21 17:30 Celecoxib (CeleBREX) 50 mg BID PO 03/21/21 21:00 03/23/21 19:59 DC Vitamin D (Vitamin D3) 1,000 unit DAILY PO 03/22/21 09:00 03/24/21 09:03 Hydroxyzine HCl (Atarax Oral Syrup) 10 mg TID PO 03/21/21 21:00 03/21/21 21:55 DC Ibuprofen (Motrin) 200 mg PRN Q6HRS PRN PO INFLAMMATION 03/21/21 21:15 03/24/21 14:54 DC Lorazepam (Ativan) 0.5 mg PRN Q6HRS PRN PO ANXIETY 03/21/21 20:00 03/23/21 14:59 DC 03/23/21 14:03 Melatonin (Melatonin) 3 mg QHS PO 03/21/21 21:00 03/24/21 20:48 Fish Oil (Fish Oil) 1,000 mg DAILY PO 03/22/21 09:00 03/24/21 09:03 Oxybutynin Chloride (Ditropan) 5 mg DAILY PO 03/22/21 09:00 03/24/21 09:03 Polymyxin/ Trimethoprim Sulfate (Polytrim) 1 drop TID OU 03/21/21 21:00 03/23/21 19:59 DC Cyanocobalamin (Vitamin B-12) 1,000 mcg DAILY PO 03/22/21 09:00 03/24/21 09:02 Multivitamins/ Calcium (Thera-M Plus) 1 tab DAILY PO 03/22/21 09:00 03/24/21 09:03 Multivitamins/ Minerals (I-[place]) 1 tab DAILY PO 03/22/21 09:00 03/24/21 09:02 Non-Formulary Medication ([Vitamin D + [place] 3] ) 1 tab DAILY PO 03/22/21 09:00 03/21/21 21:16 DC Hydroxyzine HCl (Atarax) 10 mg TID PO 03/22/21 09:00 03/24/21 20:48 Acetaminophen (Tylenol) 650 mg PRN Q6HRS PRN PO MILD PAIN / TEMP > 100.3'F 03/22/21 00:30 UNV Multi-Ingredient Ointment (Analgesic [place]) 1 sindi PRN QID PRN TP MUSCLE PAIN 03/22/21 00:30 Al Hydroxide/Mg Hydroxide (Mylanta Plus Xs) 15 ml PRN AFTMEALHC PRN PO DYSPEPSIA 03/22/21 00:30 Magnesium Hydroxide (Milk Of Magnesia) 2,400 mg PRN QHS PRN PO CONSTIPATION 03/22/21 00:30 Olanzapine (ZyPREXA ZYDIS) 2.5 mg PRN Q2HR PRN PO PSYCHOSIS 03/23/21 15:00 03/24/21 20:51 Sertraline HCl (Zoloft) 25 mg DAILY PO 03/24/21 09:00 03/27/21 08:00 03/24/21 09:03 Sertraline HCl (Zoloft) 50 mg DAILY PO 03/27/21 09:00 Divalproex Sodium (Depakote) 125 mg DAILY PO 03/25/21 09:00 Divalproex Sodium (Depakote Sprinkles) 125 mg DAILYWSUP PO 03/24/21 17:00 03/24/21 17:31 Current Medications Medications (Trade) Dose Ordered Sig/Eve Route PRN Reason Start Time Stop Time Status Last Admin Dose Admin Sertraline HCl (Zoloft) 25 mg DAILY PO 03/24/21 09:00 03/27/21 08:00 03/24/21 09:03 Divalproex Sodium (Depakote Sprinkles) 125 mg DAILYWSUP PO 03/24/21 17:00 03/24/21 17:31 I have reviewed the current psychotropics carefully including drug interactions. Risk benefit ratio favors no change other than as noted in my dictated progress note. Diagnosis: Problems: (1) Impulse control disorder, unspecified (2) Anxiety disorder, unspecified (3) Dementia, vascular, with depression (4) Dementia, vascular, with delusions (5) Dementia in Alzheimer's disease with depression (6) Dementia in Alzheimer's disease with delusions (7) Dementia of the Alzheimer's type with early onset with behavioral disturbance (8) Major neurocognitive disorder ALFREDO HARDIN MD Mar 24, 2021 22:05
[2021-03-25 06:00] VITALS: BP 161/68
[2021-03-25] MEDS: CYANOCOBALAMIN (VITAMIN B-12) 1,000 MCG TABLET. PO SCH (08:16)
[2021-03-25] MEDS: hydrOXYzine HCL 10 MG TABLET PO SCH ×3 (08:16→20:40)
[2021-03-25] MEDS: DIVALPROEX 125 MG CAP.SPRINK PO SCH (08:16)
[2021-03-25] MEDS: CHOLECALCIFEROL (VITAMIN D3) 1,000 UNIT TABLET PO SCH (08:16)
[2021-03-25] MEDS: OXYBUTYNIN CHLORIDE 5 MG TABLET PO SCH (08:16)
[2021-03-25] MEDS: OMEGA-3 FATTY ACIDS/FISH OIL 1,000 MG CAPSULE. PO SCH (08:16)
[2021-03-25] MEDS: MULTIVITAMIN with MINERAL TABLET. PO SCH (08:16)
[2021-03-25] MEDS: MULTIVITAMIN I-VITE TABLET. PO SCH (08:17)
[2021-03-25] MEDS: CARVEDILOL 3.125 MG TABLET PO SCH ×2 (08:17→17:11)
[2021-03-25] MEDS: DIVALPROEX SODIUM 125 MG TABLET.DR. PO SCH (08:22)
[2021-03-25] MEDS: SERTRALINE 25 MG TABLET. PO SCH (08:30)
--- NOTE | 2021-03-25 08:45 | NUR ---
Nurse Note Patient was alisson redirected by CNAs, when he raised his legs up kicking at them. Patient was redirected with failed attempt . Patient verbal aggressive with staff received Zydis 2.5 mg at 0845. Patient is ambulating in day room after breakfast pleasantly confused. No behavior toward staff.socializing with staff and oher paients.
--- NOTE | 2021-03-25 14:00 | NUR ---
THOMAS left a voicemail for Maura @ [facility] asking for clarification on concurrent review for pt. THOMAS was instructed to do the review on 03/25; however, received a letter stating pt was approved to 03/27.
[2021-03-25 15:34] VITALS: BP 141/76
--- NOTE | 2021-03-25 17:58 | NUR ---
Nurse Note New order for Provera 2.5 mg 1 tablet po daily per telephone order from Dr. Almazan.Order read back to ordering doctor.Patient' son Kaushal Simpson was notified of new medication, son understood what the medication if ued for an had no further question.
[2021-03-25] MEDS: MELATONIN 3 MG TABLET PO SCH (20:39)
--- NOTE | 2021-03-25 21:56 | PDOC ---
Exam Note: Fermin Note: Please also refer to the separate dictated note~for this date of service dictated separately.~Patient seen individually. Discussed the patient with Nursing staff reviewed the chart.~Reviewed interim history and current functioning. Reviewed vital signs,~Labs/ Radiology~and current medications noted below. Continue current treatment with the changes noted in the dictated addendum note Assessment: Vital Signs/I&O: Vital Signs Date Time Temp Pulse Resp B/P (MAP) Pulse Ox O2 Delivery O2 Flow Rate FiO2 03/25/21 17:11 63 141/76 03/25/21 15:34 97.3 18 97 03/25/21 06:00 Room Air I & O 03/24/21 03/24/21 03/25/21 15:00 23:00 07:00 Intake Total 240 ml 480 ml Balance 240 ml 480 ml Current Medications: Meds: Current Medications Medications (Trade) Dose Ordered Sig/Eve Route PRN Reason Start Time Stop Time Status Last Admin Dose Admin Acetaminophen (Tylenol) 650 mg PRN Q6HRS PRN PO PAIN/FEVER 03/21/21 20:00 03/24/21 20:51 Carvedilol (Coreg) 3.125 mg BIDWMEALS PO 03/22/21 08:00 03/25/21 17:11 Celecoxib (CeleBREX) 50 mg BID PO 03/21/21 21:00 03/23/21 19:59 DC Vitamin D (Vitamin D3) 1,000 unit DAILY PO 03/22/21 09:00 03/25/21 08:16 Hydroxyzine HCl (Atarax Oral Syrup) 10 mg TID PO 03/21/21 21:00 03/21/21 21:55 DC Ibuprofen (Motrin) 200 mg PRN Q6HRS PRN PO INFLAMMATION 03/21/21 21:15 03/24/21 14:54 DC Lorazepam (Ativan) 0.5 mg PRN Q6HRS PRN PO ANXIETY 03/21/21 20:00 03/23/21 14:59 DC 03/23/21 14:03 Melatonin (Melatonin) 3 mg QHS PO 03/21/21 21:00 03/25/21 20:39 Fish Oil (Fish Oil) 1,000 mg DAILY PO 03/22/21 09:00 03/25/21 08:16 Oxybutynin Chloride (Ditropan) 5 mg DAILY PO 03/22/21 09:00 03/25/21 08:16 Polymyxin/ Trimethoprim Sulfate (Polytrim) 1 drop TID OU 03/21/21 21:00 03/23/21 19:59 DC Cyanocobalamin (Vitamin B-12) 1,000 mcg DAILY PO 03/22/21 09:00 03/25/21 08:16 Multivitamins/ Calcium (Thera-M Plus) 1 tab DAILY PO 03/22/21 09:00 03/25/21 08:16 Multivitamins/ Minerals (I-[place]) 1 tab DAILY PO 03/22/21 09:00 03/25/21 08:17 Non-Formulary Medication ([Vitamin D + [place] 3] ) 1 tab DAILY PO 03/22/21 09:00 03/21/21 21:16 DC Hydroxyzine HCl (Atarax) 10 mg TID PO 03/22/21 09:00 03/25/21 20:40 Acetaminophen (Tylenol) 650 mg PRN Q6HRS PRN PO MILD PAIN / TEMP > 100.3'F 03/22/21 00:30 UNV Multi-Ingredient Ointment (Analgesic [place]) 1 sindi PRN QID PRN TP MUSCLE PAIN 03/22/21 00:30 Al Hydroxide/Mg Hydroxide (Mylanta Plus Xs) 15 ml PRN AFTMEALHC PRN PO DYSPEPSIA 03/22/21 00:30 Magnesium Hydroxide (Milk Of Magnesia) 2,400 mg PRN QHS PRN PO CONSTIPATION 03/22/21 00:30 Olanzapine (ZyPREXA ZYDIS) 2.5 mg PRN Q2HR PRN PO PSYCHOSIS 03/23/21 15:00 03/25/21 08:15 Sertraline HCl (Zoloft) 25 mg DAILY PO 03/24/21 09:00 03/27/21 08:00 03/25/21 08:30 Sertraline HCl (Zoloft) 50 mg DAILY PO 03/27/21 09:00 Divalproex Sodium (Depakote) 125 mg DAILY PO 03/25/21 09:00 03/25/21 08:22 Divalproex Sodium (Depakote Sprinkles) 125 mg DAILYWSUP PO 03/24/21 17:00 03/25/21 08:16 Medroxyprogesterone Acetate (Provera) 2.5 mg DAILY PO 03/26/21 09:00 Current Medications Medications (Trade) Dose Ordered Sig/Eve Route PRN Reason Start Time Stop Time Status Last Admin Dose Admin Divalproex Sodium (Depakote) 125 mg DAILY PO 03/25/21 09:00 03/25/21 08:22 I have reviewed the current psychotropics carefully including drug interactions. Risk benefit ratio favors no change other than as noted in my dictated progress note. 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
[2021-03-26 06:10] VITALS: BP 158/85
--- NOTE | 2021-03-26 06:30 | NUR ---
Pain was calm and spent some time in the day up watching TV before retiring to his room. He was confused for the most part, thinking he was home, believing his parents live across the street and he will be going to see them. Patient was redirected and did not show any aggression. He showed no signs of pain, nausea or vomiting. After taking all his meds, he roamed around the hallways for a bit before retiring to his room where he rested in bed with eyes closed, breathing normally. Will continue to monitor.
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
[2021-03-26] MEDS: CHOLECALCIFEROL (VITAMIN D3) 1,000 UNIT TABLET PO SCH (08:34)
[2021-03-26] MEDS: OMEGA-3 FATTY ACIDS/FISH OIL 1,000 MG CAPSULE. PO SCH (08:34)
[2021-03-26] MEDS: DIVALPROEX SODIUM 125 MG TABLET.DR. PO SCH (08:34)
[2021-03-26] MEDS: MULTIVITAMIN I-VITE TABLET. PO SCH (08:34)
[2021-03-26] MEDS: CARVEDILOL 3.125 MG TABLET PO SCH ×2 (08:34→17:12)
[2021-03-26] MEDS: CYANOCOBALAMIN (VITAMIN B-12) 1,000 MCG TABLET. PO SCH (08:34)
[2021-03-26] MEDS: SERTRALINE 25 MG TABLET. PO SCH (08:34)
[2021-03-26] MEDS: hydrOXYzine HCL 10 MG TABLET PO SCH ×3 (08:34→20:31)
[2021-03-26] MEDS: OXYBUTYNIN CHLORIDE 5 MG TABLET PO SCH (08:34)
[2021-03-26] MEDS: MULTIVITAMIN with MINERAL TABLET. PO SCH (08:34)
--- NOTE | 2021-03-26 08:50 | NUR ---
THOMAS received a voicemail message from Maura @ [facility] clarifying pt concurrent review. Because Maura will be out at a training with the rest of her team, she has completed an administrative authorization to cover an extra two days for pt with a concurrent review due on 03/27. Maura requested that the review be left on her voicemail at x [phone].
--- NOTE | 2021-03-26 08:51 | PDOC ---
Exam Note: Fermin Note: This note is a late entry for 03/25/2021 covers elements not covered in my initial note. Subjective: The patient was seen individually in the evening of 03/25/2021 with Pat RN, discussed and reviewed the chart. He slept 4-3/4 hours previous night. The patient remains confused, sexually inappropriate at times with staff members asking female nursing aid to come to bed with him. Review of Systems: No CV, , pulmonary, eye, ENT system symptoms on review. Mental Status Exam: The patient is just oriented to himself. Insight and judgment, recent and remote memory, attention and concentration, fund of knowledge is poor consistent with his diagnoses. Laboratory Data: Reviewed. Impression: Major neurocognitive disorder Alzheimer vascular with delusion, depression, behavioral disturbance. Anxiety disorder unspecified. Impulse control disorder unspecified. Plan: Continue current psychotropics. CBC, CMP, valproic acid level to be done on 03/28. Rest unchanged. Assessment: Vital Signs/I&O: Vital Signs Date Time Temp Pulse Resp B/P (MAP) Pulse Ox O2 Delivery O2 Flow Rate FiO2 03/26/21 08:34 62 158/85 03/26/21 06:10 98.5 16 95 03/25/21 06:00 Room Air I & O 03/25/21 03/25/21 03/26/21 15:00 23:00 07:00 Intake Total 840 ml 600 ml Output Total 140 ml Balance 840 ml 460 ml Current Medications: Meds: Current Medications Medications (Trade) Dose Ordered Sig/Eve Route PRN Reason Start Time Stop Time Status Last Admin Dose Admin Acetaminophen (Tylenol) 650 mg PRN Q6HRS PRN PO PAIN/FEVER 03/21/21 20:00 03/24/21 20:51 Carvedilol (Coreg) 3.125 mg BIDWMEALS PO 03/22/21 08:00 03/26/21 08:34 Celecoxib (CeleBREX) 50 mg BID PO 03/21/21 21:00 03/23/21 19:59 DC Vitamin D (Vitamin D3) 1,000 unit DAILY PO 03/22/21 09:00 03/26/21 08:34 Hydroxyzine HCl (Atarax Oral Syrup) 10 mg TID PO 03/21/21 21:00 03/21/21 21:55 DC Ibuprofen (Motrin) 200 mg PRN Q6HRS PRN PO INFLAMMATION 03/21/21 21:15 03/24/21 14:54 DC Lorazepam (Ativan) 0.5 mg PRN Q6HRS PRN PO ANXIETY 03/21/21 20:00 03/23/21 14:59 DC 03/23/21 14:03 Melatonin (Melatonin) 3 mg QHS PO 03/21/21 21:00 03/25/21 20:39 Fish Oil (Fish Oil) 1,000 mg DAILY PO 03/22/21 09:00 03/26/21 08:34 Oxybutynin Chloride (Ditropan) 5 mg DAILY PO 03/22/21 09:00 03/26/21 08:34 Polymyxin/ Trimethoprim Sulfate (Polytrim) 1 drop TID OU 03/21/21 21:00 03/23/21 19:59 DC Cyanocobalamin (Vitamin B-12) 1,000 mcg DAILY PO 03/22/21 09:00 03/26/21 08:34 Multivitamins/ Calcium (Thera-M Plus) 1 tab DAILY PO 03/22/21 09:00 03/26/21 08:34 Multivitamins/ Minerals (I-[place]) 1 tab DAILY PO 03/22/21 09:00 03/26/21 08:34 Non-Formulary Medication ([Vitamin D + [place] 3] ) 1 tab DAILY PO 03/22/21 09:00 03/21/21 21:16 DC Hydroxyzine HCl (Atarax) 10 mg TID PO 03/22/21 09:00 03/26/21 08:34 Acetaminophen (Tylenol) 650 mg PRN Q6HRS PRN PO MILD PAIN / TEMP > 100.3'F 03/22/21 00:30 UNV Multi-Ingredient Ointment (Analgesic [place]) 1 sindi PRN QID PRN TP MUSCLE PAIN 03/22/21 00:30 Al Hydroxide/Mg Hydroxide (Mylanta Plus Xs) 15 ml PRN AFTMEALHC PRN PO DYSPEPSIA 03/22/21 00:30 Magnesium Hydroxide (Milk Of Magnesia) 2,400 mg PRN QHS PRN PO CONSTIPATION 03/22/21 00:30 Olanzapine (ZyPREXA ZYDIS) 2.5 mg PRN Q2HR PRN PO PSYCHOSIS 03/23/21 15:00 03/25/21 08:15 Sertraline HCl (Zoloft) 25 mg DAILY PO 03/24/21 09:00 03/27/21 08:00 03/26/21 08:34 Sertraline HCl (Zoloft) 50 mg DAILY PO 03/27/21 09:00 Divalproex Sodium (Depakote) 125 mg DAILY PO 03/25/21 09:00 03/26/21 08:34 Divalproex Sodium (Depakote Sprinkles) 125 mg DAILYWSUP PO 03/24/21 17:00 03/25/21 08:16 Medroxyprogesterone Acetate (Provera) 2.5 mg DAILY PO 03/26/21 09:00 03/26/21 08:34 Current Medications Medications (Trade) Dose Ordered Sig/Eve Route PRN Reason Start Time Stop Time Status Last Admin Dose Admin Divalproex Sodium (Depakote) 125 mg DAILY PO 03/25/21 09:00 03/26/21 08:34 Medroxyprogesterone Acetate (Provera) 2.5 mg DAILY PO 03/26/21 09:00 03/26/21 08:34 I have reviewed the current psychotropics carefully including drug interactions. Risk benefit ratio favors no change other than as noted in my dictated progress note. Diagnosis: Problems: (1) Impulse control disorder, unspecified (2) Anxiety disorder, unspecified (3) Dementia, vascular, with depression (4) Dementia, vascular, with delusions (5) Dementia in Alzheimer's disease with depression (6) Dementia in Alzheimer's disease with delusions (7) Dementia of the Alzheimer's type with early onset with behavioral disturbance (8) Major neurocognitive disorder ALFREDO HARDIN MD Mar 26, 2021 08:51
--- NOTE | 2021-03-26 09:38 | NUR ---
Pt A&O to name and only. He is confused and disorganized, at times pausing for a period before attempting to answer assessment questions. He is compliant with whole medications. Absent of SI/HI/VH/AH/delusions. He denies pain when asked. He is presently in the day room, his interactions with others have been appropriate. Plan of care continues, will pass to next shift.
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
[2021-03-26 15:44] VITALS: BP 133/80
[2021-03-26] MEDS: DIVALPROEX 125 MG CAP.SPRINK PO SCH (17:12)
[2021-03-26] MEDS: MELATONIN 3 MG TABLET PO SCH (20:31)
--- NOTE | 2021-03-26 22:24 | PDOC ---
Exam Note: Fermin Note: Please also refer to the separate dictated note~for this date of service dictated separately.~Patient seen individually. Discussed the patient with Nursing staff reviewed the chart.~Reviewed interim history and current functioning. Reviewed vital signs,~Labs/ Radiology~and current medications noted below. Continue current treatment with the changes noted in the dictated addendum note Assessment: Vital Signs/I&O: Vital Signs Date Time Temp Pulse Resp B/P (MAP) Pulse Ox O2 Delivery O2 Flow Rate FiO2 03/26/21 17:12 89 133/80 03/26/21 15:44 98.2 18 93 03/25/21 06:00 Room Air I & O 03/25/21 03/25/21 03/26/21 15:00 23:00 07:00 Intake Total 840 ml 600 ml Output Total 140 ml Balance 840 ml 460 ml Current Medications: Meds: Current Medications Medications (Trade) Dose Ordered Sig/Eve Route PRN Reason Start Time Stop Time Status Last Admin Dose Admin Acetaminophen (Tylenol) 650 mg PRN Q6HRS PRN PO PAIN/FEVER 03/21/21 20:00 03/24/21 20:51 Carvedilol (Coreg) 3.125 mg BIDWMEALS PO 03/22/21 08:00 03/26/21 17:12 Celecoxib (CeleBREX) 50 mg BID PO 03/21/21 21:00 03/23/21 19:59 DC Vitamin D (Vitamin D3) 1,000 unit DAILY PO 03/22/21 09:00 03/26/21 08:34 Hydroxyzine HCl (Atarax Oral Syrup) 10 mg TID PO 03/21/21 21:00 03/21/21 21:55 DC Ibuprofen (Motrin) 200 mg PRN Q6HRS PRN PO INFLAMMATION 03/21/21 21:15 03/24/21 14:54 DC Lorazepam (Ativan) 0.5 mg PRN Q6HRS PRN PO ANXIETY 03/21/21 20:00 03/23/21 14:59 DC 03/23/21 14:03 Melatonin (Melatonin) 3 mg QHS PO 03/21/21 21:00 03/26/21 20:31 Fish Oil (Fish Oil) 1,000 mg DAILY PO 03/22/21 09:00 03/26/21 08:34 Oxybutynin Chloride (Ditropan) 5 mg DAILY PO 03/22/21 09:00 03/26/21 08:34 Polymyxin/ Trimethoprim Sulfate (Polytrim) 1 drop TID OU 03/21/21 21:00 03/23/21 19:59 DC Cyanocobalamin (Vitamin B-12) 1,000 mcg DAILY PO 03/22/21 09:00 03/26/21 08:34 Multivitamins/ Calcium (Thera-M Plus) 1 tab DAILY PO 03/22/21 09:00 03/26/21 08:34 Multivitamins/ Minerals (I-[place]) 1 tab DAILY PO 03/22/21 09:00 03/26/21 08:34 Non-Formulary Medication ([Vitamin D + [place] 3] ) 1 tab DAILY PO 03/22/21 09:00 03/21/21 21:16 DC Hydroxyzine HCl (Atarax) 10 mg TID PO 03/22/21 09:00 03/26/21 16:04 DC 03/26/21 12:07 Acetaminophen (Tylenol) 650 mg PRN Q6HRS PRN PO MILD PAIN / TEMP > 100.3'F 03/22/21 00:30 UNV Multi-Ingredient Ointment (Analgesic [place]) 1 sindi PRN QID PRN TP MUSCLE PAIN 03/22/21 00:30 Al Hydroxide/Mg Hydroxide (Mylanta Plus Xs) 15 ml PRN AFTMEALHC PRN PO DYSPEPSIA 03/22/21 00:30 Magnesium Hydroxide (Milk Of Magnesia) 2,400 mg PRN QHS PRN PO CONSTIPATION 03/22/21 00:30 Olanzapine (ZyPREXA ZYDIS) 2.5 mg PRN Q2HR PRN PO PSYCHOSIS 03/23/21 15:00 03/26/21 11:18 Sertraline HCl (Zoloft) 25 mg DAILY PO 03/24/21 09:00 03/27/21 08:00 03/26/21 08:34 Sertraline HCl (Zoloft) 50 mg DAILY PO 03/27/21 09:00 Divalproex Sodium (Depakote) 125 mg DAILY PO 03/25/21 09:00 03/26/21 08:34 Divalproex Sodium (Depakote Sprinkles) 125 mg DAILYWSUP PO 03/24/21 17:00 03/26/21 17:12 Medroxyprogesterone Acetate (Provera) 2.5 mg DAILY PO 03/26/21 09:00 03/26/21 08:34 Hydroxyzine HCl (Atarax) 10 mg BID PO 03/26/21 21:00 03/28/21 23:55 03/26/21 20:31 Quetiapine Fumarate (SEROquel) 12.5 mg 0900,1700 PO 03/27/21 09:00 Hydroxyzine HCl (Atarax) 10 mg DAILY PO 03/29/21 09:00 03/31/21 09:01 Current Medications Medications (Trade) Dose Ordered Sig/Eve Route PRN Reason Start Time Stop Time Status Last Admin Dose Admin Medroxyprogesterone Acetate (Provera) 2.5 mg DAILY PO 03/26/21 09:00 03/26/21 08:34 Hydroxyzine HCl (Atarax) 10 mg BID PO 03/26/21 21:00 03/28/21 23:55 03/26/21 20:31 I have reviewed the current psychotropics carefully including drug interactions. Risk benefit ratio favors no change other than as noted in my dictated progress note. Diagnosis: Problems: (1) Impulse control disorder, unspecified (2) Anxiety disorder, unspecified (3) Dementia, vascular, with depression (4) Dementia, vascular, with delusions (5) Dementia in Alzheimer's disease with depression (6) Dementia in Alzheimer's disease with delusions (7) Dementia of the Alzheimer's type with early onset with behavioral disturbance (8) Major neurocognitive disorder ALFREDO HARDIN MD Mar 26, 2021 22:24
--- NOTE | 2021-03-26 23:38 | NUR ---
Pt sitting calmly in dayroom all evening. A/O to name and . Compliant with whole medications. No agitation or aggression.
[2021-03-27 05:49] VITALS: BP 117/77
[2021-03-27] MEDS: OMEGA-3 FATTY ACIDS/FISH OIL 1,000 MG CAPSULE. PO SCH (08:27)
[2021-03-27] MEDS: SERTRALINE 50 MG TABLET. PO SCH (08:27)
[2021-03-27] MEDS: MULTIVITAMIN I-VITE TABLET. PO SCH (08:27)
[2021-03-27] MEDS: DIVALPROEX SODIUM 125 MG TABLET.DR. PO SCH (08:27)
[2021-03-27] MEDS: CHOLECALCIFEROL (VITAMIN D3) 1,000 UNIT TABLET PO SCH (08:27)
[2021-03-27] MEDS: CYANOCOBALAMIN (VITAMIN B-12) 1,000 MCG TABLET. PO SCH (08:27)
[2021-03-27] MEDS: OXYBUTYNIN CHLORIDE 5 MG TABLET PO SCH (08:27)
[2021-03-27] MEDS: MULTIVITAMIN with MINERAL TABLET. PO SCH (08:27)
[2021-03-27] MEDS: hydrOXYzine HCL 10 MG TABLET PO SCH ×2 (08:27→20:35)
[2021-03-27] MEDS: QUEtiapine 25 MG TABLET. PO SCH ×2 (08:28→17:11)
[2021-03-27] MEDS: CARVEDILOL 3.125 MG TABLET PO SCH ×2 (08:28→17:11)
[2021-03-27 15:52] VITALS: BP 122/76
--- NOTE | 2021-03-27 16:28 | NUR ---
Nursing note: Patient in dinning room at time of AM med pass and assessment, medication taken whole. He is oriented to self only. Patient appears comfortable with no facial grimacing noted. He ambulates independently without difficulty, no aggression noted at this time. He is currently sitting in a chair in the up. Will continue to monitor.
[2021-03-27] MEDS: DIVALPROEX 125 MG CAP.SPRINK PO SCH (17:11)
[2021-03-27] MEDS: MELATONIN 3 MG TABLET PO SCH (20:35)
--- NOTE | 2021-03-27 22:02 | PDOC ---
Exam Note: Fermin Note: Please also refer to the separate dictated note~for this date of service dictated separately.~Patient seen individually. Discussed the patient with Nursing staff reviewed the chart.~Reviewed interim history and current functioning. Reviewed vital signs,~Labs/ Radiology~and current medications noted below. Continue current treatment with the changes noted in the dictated addendum note Assessment: Vital Signs/I&O: Vital Signs Date Time Temp Pulse Resp B/P (MAP) Pulse Ox O2 Delivery O2 Flow Rate FiO2 03/27/21 17:11 61 122/76 03/27/21 15:52 97.4 16 99 03/25/21 06:00 Room Air I & O 03/26/21 03/26/21 03/27/21 14:59 22:59 06:59 Intake Total 560 ml 360 ml 360 ml Balance 560 ml 360 ml 360 ml Current Medications: Meds: Current Medications Medications (Trade) Dose Ordered Sig/Eve Route PRN Reason Start Time Stop Time Status Last Admin Dose Admin Acetaminophen (Tylenol) 650 mg PRN Q6HRS PRN PO PAIN/FEVER 03/21/21 20:00 03/24/21 20:51 Carvedilol (Coreg) 3.125 mg BIDWMEALS PO 03/22/21 08:00 03/27/21 17:11 Celecoxib (CeleBREX) 50 mg BID PO 03/21/21 21:00 03/23/21 19:59 DC Vitamin D (Vitamin D3) 1,000 unit DAILY PO 03/22/21 09:00 03/27/21 08:27 Hydroxyzine HCl (Atarax Oral Syrup) 10 mg TID PO 03/21/21 21:00 03/21/21 21:55 DC Ibuprofen (Motrin) 200 mg PRN Q6HRS PRN PO INFLAMMATION 03/21/21 21:15 03/24/21 14:54 DC Lorazepam (Ativan) 0.5 mg PRN Q6HRS PRN PO ANXIETY 03/21/21 20:00 03/23/21 14:59 DC 03/23/21 14:03 Melatonin (Melatonin) 3 mg QHS PO 03/21/21 21:00 03/27/21 20:35 Fish Oil (Fish Oil) 1,000 mg DAILY PO 03/22/21 09:00 03/27/21 08:27 Oxybutynin Chloride (Ditropan) 5 mg DAILY PO 03/22/21 09:00 03/27/21 08:27 Polymyxin/ Trimethoprim Sulfate (Polytrim) 1 drop TID OU 03/21/21 21:00 03/23/21 19:59 DC Cyanocobalamin (Vitamin B-12) 1,000 mcg DAILY PO 03/22/21 09:00 03/27/21 08:27 Multivitamins/ Calcium (Thera-M Plus) 1 tab DAILY PO 03/22/21 09:00 03/27/21 08:27 Multivitamins/ Minerals (I-[place]) 1 tab DAILY PO 03/22/21 09:00 03/27/21 08:27 Non-Formulary Medication ([Vitamin D + [place] 3] ) 1 tab DAILY PO 03/22/21 09:00 03/21/21 21:16 DC Hydroxyzine HCl (Atarax) 10 mg TID PO 03/22/21 09:00 03/26/21 16:04 DC 03/26/21 12:07 Acetaminophen (Tylenol) 650 mg PRN Q6HRS PRN PO MILD PAIN / TEMP > 100.3'F 03/22/21 00:30 UNV Multi-Ingredient Ointment (Analgesic [place]) 1 sindi PRN QID PRN TP MUSCLE PAIN 03/22/21 00:30 Al Hydroxide/Mg Hydroxide (Mylanta Plus Xs) 15 ml PRN AFTMEALHC PRN PO DYSPEPSIA 03/22/21 00:30 Magnesium Hydroxide (Milk Of Magnesia) 2,400 mg PRN QHS PRN PO CONSTIPATION 03/22/21 00:30 03/27/21 12:39 Olanzapine (ZyPREXA ZYDIS) 2.5 mg PRN Q2HR PRN PO PSYCHOSIS 03/23/21 15:00 03/27/21 20:35 Sertraline HCl (Zoloft) 25 mg DAILY PO 03/24/21 09:00 03/27/21 08:00 DC 03/26/21 08:34 Sertraline HCl (Zoloft) 50 mg DAILY PO 03/27/21 09:00 03/27/21 08:27 Divalproex Sodium (Depakote) 125 mg DAILY PO 03/25/21 09:00 03/27/21 08:27 Divalproex Sodium (Depakote Sprinkles) 125 mg DAILYWSUP PO 03/24/21 17:00 03/27/21 17:11 Medroxyprogesterone Acetate (Provera) 2.5 mg DAILY PO 03/26/21 09:00 03/27/21 08:28 Hydroxyzine HCl (Atarax) 10 mg BID PO 03/26/21 21:00 03/28/21 23:55 03/27/21 20:35 Quetiapine Fumarate (SEROquel) 12.5 mg 0900,1700 PO 03/27/21 09:00 03/27/21 17:11 Hydroxyzine HCl (Atarax) 10 mg DAILY PO 03/29/21 09:00 03/31/21 09:01 Current Medications Medications (Trade) Dose Ordered Sig/Eve Route PRN Reason Start Time Stop Time Status Last Admin Dose Admin Sertraline HCl (Zoloft) 50 mg DAILY PO 03/27/21 09:00 03/27/21 08:27 Quetiapine Fumarate (SEROquel) 12.5 mg 0900,1700 PO 03/27/21 09:00 03/27/21 17:11 I have reviewed the current psychotropics carefully including drug interactions. Risk benefit ratio favors no change other than as noted in my dictated progress note. 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
--- NOTE | 2021-03-28 01:48 | NUR ---
Nursing Note Pt was irritable with staff, angry balled up fists at staff members. Was cooperative with meds Zyprexa given for agitation. Pleasant later in the shift.
[2021-03-28 07:05] LABS: BASO % 1 % (0-3); EOS # 0.2 x10^3/uL (0.0-0.7); EOS % 3 % (0-3); HEMATOCRIT 31.2 % (39.0-53.0); HEMOGLOBIN 10.4 g/dL (13.0-17.5); LYMPH # 1.7 x10^3/uL (1.0-4.8); LYMPH % 30 % (24-48); MEAN CORPUSCULAR HEMOGLOBIN 32 pg (25-35); MEAN CORPUSCULAR HGB CONC 34 g/dL (31-37); MEAN CORPUSCULAR VOLUME 94 fL (79-100); MONO # 0.7 x10^3/uL (0.0-1.1); MONO % 12 % (0-9); NEUT % 54 % (31-73); PLATELET COUNT 186 x10^3/uL (140-400); RED CELL DISTRIBUTION WIDTH 13.2 % (11.5-14.5); WHITE BLOOD COUNT 5.6 x10^3/uL (4.0-11.0)
[2021-03-28 07:06] LABS: ALBUMIN 3.3 g/dL (3.4-5.0); ALBUMIN/GLOBULIN RATIO 1.1 (1.0-1.7); ALK PHOS 83 U/L (46-116); ALT (SGPT) 18 U/L (16-63); ANION GAP 11 (6-14); AST (SGOT) 11 U/L (15-37); BLOOD UREA NITROGEN 63 mg/dL (8-26); BUN/CREATININE RATIO 22 (6-20); CALCIUM 8.5 mg/dL (8.5-10.1); CARBON DIOXIDE 24 mmol/L (21-32); CHLORIDE 110 mmol/L (98-107); CREATININE 2.9 mg/dL (0.7-1.3); GFR 20.8; GLUCOSE 94 mg/dL (70-99); POTASSIUM 4.6 mmol/L (3.5-5.1); SODIUM 145 mmol/L (136-145); TOTAL BILIRUBIN 0.4 mg/dL (0.2-1.0); TOTAL PROTEIN 6.4 g/dL (6.4-8.2)
[2021-03-28 07:11] LABS: VAL ACID 12 mcg/mL (50-100)
[2021-03-28] MEDS: OMEGA-3 FATTY ACIDS/FISH OIL 1,000 MG CAPSULE. PO SCH (08:18)
[2021-03-28] MEDS: CHOLECALCIFEROL (VITAMIN D3) 1,000 UNIT TABLET PO SCH (08:18)
[2021-03-28] MEDS: QUEtiapine 25 MG TABLET. PO SCH ×2 (08:18→17:29)
[2021-03-28] MEDS: OXYBUTYNIN CHLORIDE 5 MG TABLET PO SCH (08:18)
[2021-03-28] MEDS: CARVEDILOL 3.125 MG TABLET PO SCH ×2 (08:18→17:29)
[2021-03-28] MEDS: DIVALPROEX SODIUM 125 MG TABLET.DR. PO SCH (08:18)
[2021-03-28] MEDS: MULTIVITAMIN I-VITE TABLET. PO SCH (08:19)
[2021-03-28] MEDS: MULTIVITAMIN with MINERAL TABLET. PO SCH (08:19)
[2021-03-28] MEDS: CYANOCOBALAMIN (VITAMIN B-12) 1,000 MCG TABLET. PO SCH (08:19)
[2021-03-28] MEDS: SERTRALINE 50 MG TABLET. PO SCH (08:19)
[2021-03-28] MEDS: hydrOXYzine HCL 10 MG TABLET PO SCH ×2 (08:19→20:45)
--- NOTE | 2021-03-28 08:44 | PDOC ---
Exam Note: Fermin Note: This note is a late entry for 03/26/2021 covers elements not covered in my initial note. Subjective: The patient was seen individually in the evening of 03/26/2021 with Yaneth CAICEDO, discussed and reviewed the chart. He slept 6 hours previous night. The patient has had some sexually inappropriate behaviors and at one point was extremely aggressive, kicking the nursing aid previous evening. He is at times able to remember his date of in response to his name, compliant with his medications. At times he has been digging and grabbing at staff members especially when there is system with ADLs and at times was hitting staff member. Received Zyprexa at 11.30 a.m., difficult to redirect. Review of Systems: No CV, , pulmonary, eye, ENT system symptoms on review. Mental Status Exam: The patient is just oriented to himself. Insight and judgment, recent and remote memory, attention and concentration, fund of knowledge is poor consistent with his diagnoses. Laboratory Data: Reviewed. Impression: Major neurocognitive disorder Alzheimer vascular with delusion, depression, behavioral disturbance. Anxiety disorder unspecified. Impulse control disorder unspecified. Plan: Continue current psychotropics. Reduce Atarax from 10 mg t.i.d. to 10 mg b.i.d. and gradually taper it further and stop it. Start Seroquel 12.5 mg 9 a.m. and 5 p.m. Maintain Zoloft, Provera initiated for sexually inappropriate behaviors. Continue Depakote. Valproic acid level to be checked on 03/28. Adjust Depakote dosage further thereafter. Assessment: Vital Signs/I&O: Vital Signs Date Time Temp Pulse Resp B/P (MAP) Pulse Ox O2 Delivery O2 Flow Rate FiO2 03/28/21 08:18 61 122/76 03/27/21 15:52 97.4 16 99 03/25/21 06:00 Room Air I & O 03/27/21 03/27/21 03/28/21 15:00 23:00 07:00 Intake Total 960 ml 240 ml Balance 960 ml 240 ml Labs: Laboratory Tests Test 03/28/21 06:23 White Blood Count 5.6 x10^3/uL (4.0-11.0) Red Blood Count 3.30 x10^6/uL (4.30-5.70) L Hemoglobin 10.4 g/dL (13.0-17.5) L Hematocrit 31.2 % (39.0-53.0) L Mean Corpuscular Volume 94 fL (79-100) Mean Corpuscular Hemoglobin 32 pg (25-35) Mean Corpuscular Hemoglobin Concent 34 g/dL (31-37) Red Cell Distribution Width 13.2 % (11.5-14.5) Platelet Count 186 x10^3/uL (140-400) Neutrophils (%) (Auto) 54 % (31-73) Lymphocytes (%) (Auto) 30 % (24-48) Monocytes (%) (Auto) 12 % (0-9) H Eosinophils (%) (Auto) 3 % (0-3) Basophils (%) (Auto) 1 % (0-3) Neutrophils # (Auto) 3.0 x10^3uL (1.8-7.7) Lymphocytes # (Auto) 1.7 x10^3/uL (1.0-4.8) Monocytes # (Auto) 0.7 x10^3/uL (0.0-1.1) Eosinophils # (Auto) 0.2 x10^3/uL (0.0-0.7) Basophils # (Auto) 0.0 x10^3/uL (0.0-0.2) Sodium Level 145 mmol/L (136-145) Potassium Level 4.6 mmol/L (3.5-5.1) Chloride Level 110 mmol/L (98-107) H Carbon Dioxide Level 24 mmol/L (21-32) Anion Gap 11 (6-14) Blood Urea Nitrogen 63 mg/dL (8-26) H Creatinine 2.9 mg/dL (0.7-1.3) H Estimated GFR (Cockcroft-Gault) 20.8 BUN/Creatinine Ratio 22 (6-20) H Glucose Level 94 mg/dL (70-99) Calcium Level 8.5 mg/dL (8.5-10.1) Total Bilirubin 0.4 mg/dL (0.2-1.0) Aspartate Amino Transferase (AST) 11 U/L (15-37) L Alanine Aminotransferase (ALT) 18 U/L (16-63) Alkaline Phosphatase 83 U/L (46-116) Total Protein 6.4 g/dL (6.4-8.2) Albumin 3.3 g/dL (3.4-5.0) L Albumin/Globulin Ratio 1.1 (1.0-1.7) Valproic Acid Level 12 mcg/mL (50-100) L Valproic Acid Last Dose Date 03/27/2021 Valproic Acid Last Dose Time 1700 Current Medications: Meds: Laboratory Tests Test 03/28/21 06:23 White Blood Count 5.6 x10^3/uL Red Blood Count 3.30 x10^6/uL Hemoglobin 10.4 g/dL Hematocrit 31.2 % Mean Corpuscular Volume 94 fL Mean Corpuscular Hemoglobin 32 pg Mean Corpuscular Hemoglobin Concent 34 g/dL Red Cell Distribution Width 13.2 % Platelet Count 186 x10^3/uL Neutrophils (%) (Auto) 54 % Lymphocytes (%) (Auto) 30 % Monocytes (%) (Auto) 12 % Eosinophils (%) (Auto) 3 % Basophils (%) (Auto) 1 % Neutrophils # (Auto) 3.0 x10^3uL Lymphocytes # (Auto) 1.7 x10^3/uL Monocytes # (Auto) 0.7 x10^3/uL Eosinophils # (Auto) 0.2 x10^3/uL Basophils # (Auto) 0.0 x10^3/uL Sodium Level 145 mmol/L Potassium Level 4.6 mmol/L Chloride Level 110 mmol/L Carbon Dioxide Level 24 mmol/L Anion Gap 11 Blood Urea Nitrogen 63 mg/dL Creatinine 2.9 mg/dL Estimated GFR (Cockcroft-Gault) 20.8 BUN/Creatinine Ratio 22 Glucose Level 94 mg/dL Calcium Level 8.5 mg/dL Total Bilirubin 0.4 mg/dL Aspartate Amino Transf (AST/SGOT) 11 U/L Alanine Aminotransferase (ALT/SGPT) 18 U/L Alkaline Phosphatase 83 U/L Total Protein 6.4 g/dL Albumin 3.3 g/dL Albumin/Globulin Ratio 1.1 Valproic Acid (Depakene) Level 12 mcg/mL Valproic Acid Last Dose Date 03/27/2021 Valproic Acid Last Dose Time 1700 Current Medications Medications (Trade) Dose Ordered Sig/Eve Route PRN Reason Start Time Stop Time Status Last Admin Dose Admin Acetaminophen (Tylenol) 650 mg PRN Q6HRS PRN PO PAIN/FEVER 03/21/21 20:00 03/24/21 20:51 Carvedilol (Coreg) 3.125 mg BIDWMEALS PO 03/22/21 08:00 03/28/21 08:18 Celecoxib (CeleBREX) 50 mg BID PO 03/21/21 21:00 03/23/21 19:59 DC Vitamin D (Vitamin D3) 1,000 unit DAILY PO 03/22/21 09:00 03/28/21 08:18 Hydroxyzine HCl (Atarax Oral Syrup) 10 mg TID PO 03/21/21 21:00 03/21/21 21:55 DC Ibuprofen (Motrin) 200 mg PRN Q6HRS PRN PO INFLAMMATION 03/21/21 21:15 03/24/21 14:54 DC Lorazepam (Ativan) 0.5 mg PRN Q6HRS PRN PO ANXIETY 03/21/21 20:00 03/23/21 14:59 DC 03/23/21 14:03 Melatonin (Melatonin) 3 mg QHS PO 03/21/21 21:00 03/27/21 20:35 Fish Oil (Fish Oil) 1,000 mg DAILY PO 03/22/21 09:00 03/28/21 08:18 Oxybutynin Chloride (Ditropan) 5 mg DAILY PO 03/22/21 09:00 03/28/21 08:18 Polymyxin/ Trimethoprim Sulfate (Polytrim) 1 drop TID OU 03/21/21 21:00 03/23/21 19:59 DC Cyanocobalamin (Vitamin B-12) 1,000 mcg DAILY PO 03/22/21 09:00 03/28/21 08:19 Multivitamins/ Calcium (Thera-M Plus) 1 tab DAILY PO 03/22/21 09:00 03/28/21 08:19 Multivitamins/ Minerals (I-[place]) 1 tab DAILY PO 03/22/21 09:00 03/28/21 08:19 Non-Formulary Medication ([Vitamin D + [place] 3] ) 1 tab DAILY PO 03/22/21 09:00 03/21/21 21:16 DC Hydroxyzine HCl (Atarax) 10 mg TID PO 03/22/21 09:00 03/26/21 16:04 DC 03/26/21 12:07 Acetaminophen (Tylenol) 650 mg PRN Q6HRS PRN PO MILD PAIN / TEMP > 100.3'F 03/22/21 00:30 UNV Multi-Ingredient Ointment (Analgesic [place]) 1 sindi PRN QID PRN TP MUSCLE PAIN 03/22/21 00:30 Al Hydroxide/Mg Hydroxide (Mylanta Plus Xs) 15 ml PRN AFTMEALHC PRN PO DYSPEPSIA 03/22/21 00:30 Magnesium Hydroxide (Milk Of Magnesia) 2,400 mg PRN QHS PRN PO CONSTIPATION 03/22/21 00:30 03/27/21 12:39 Olanzapine (ZyPREXA ZYDIS) 2.5 mg PRN Q2HR PRN PO PSYCHOSIS 03/23/21 15:00 03/27/21 20:35 Sertraline HCl (Zoloft) 25 mg DAILY PO 03/24/21 09:00 03/27/21 08:00 DC 03/26/21 08:34 Sertraline HCl (Zoloft) 50 mg DAILY PO 03/27/21 09:00 03/28/21 08:19 Divalproex Sodium (Depakote) 125 mg DAILY PO 03/25/21 09:00 03/28/21 08:18 Divalproex Sodium (Depakote Sprinkles) 125 mg DAILYWSUP PO 03/24/21 17:00 03/27/21 17:11 Medroxyprogesterone Acetate (Provera) 2.5 mg DAILY PO 03/26/21 09:00 03/28/21 08:19 Hydroxyzine HCl (Atarax) 10 mg BID PO 03/26/21 21:00 03/28/21 23:55 03/28/21 08:19 Quetiapine Fumarate (SEROquel) 12.5 mg 0900,1700 PO 03/27/21 09:00 03/28/21 08:18 Hydroxyzine HCl (Atarax) 10 mg DAILY PO 03/29/21 09:00 03/31/21 09:01 Current Medications Medications (Trade) Dose Ordered Sig/Eve Route PRN Reason Start Time Stop Time Status Last Admin Dose Admin Sertraline HCl (Zoloft) 50 mg DAILY PO 03/27/21 09:00 03/28/21 08:19 Quetiapine Fumarate (SEROquel) 12.5 mg 0900,1700 PO 03/27/21 09:00 03/28/21 08:18 I have reviewed the current psychotropics carefully including drug interactions. Risk benefit ratio favors no change other than as noted in my dictated progress note. Diagnosis: Problems: (1) Impulse control disorder, unspecified (2) Anxiety disorder, unspecified (3) Dementia, vascular, with depression (4) Dementia, vascular, with delusions (5) Dementia in Alzheimer's disease with depression (6) Dementia in Alzheimer's disease with delusions (7) Dementia of the Alzheimer's type with early onset with behavioral disturbance (8) Major neurocognitive disorder ALFREDO HARDIN MD Mar 28, 2021 08:44
--- NOTE | 2021-03-28 09:11 | PDOC ---
Exam Note: Fermin Note: This note is a late entry for 03/27/2021 covers elements not covered in my initial note. Subjective: The patient was seen individually in the evening of 03/27/2021 with Teena CAICEDO, discussed and reviewed the chart. He slept 7-1/4 hours previous night. The patient remains confused. No sexually aggressive behaviors noted. Review of Systems: No CV, , pulmonary, eye, ENT system symptoms on review. Reliability poor. Mental Status Exam: The patient is just oriented to himself. Insight and judgment, recent and remote memory, attention and concentration, fund of knowledge is poor consistent with his diagnoses. Laboratory Data: Reviewed. Impression: Major neurocognitive disorder Alzheimer vascular with delusion, depression, behavioral disturbance. Anxiety disorder unspecified. Impulse control disorder unspecified. Plan: Continue current psychotropics. Assessment: Vital Signs/I&O: Vital Signs Date Time Temp Pulse Resp B/P (MAP) Pulse Ox O2 Delivery O2 Flow Rate FiO2 03/28/21 08:18 61 122/76 03/27/21 15:52 97.4 16 99 03/25/21 06:00 Room Air I & O 03/27/21 03/27/21 03/28/21 15:00 23:00 07:00 Intake Total 960 ml 240 ml Balance 960 ml 240 ml Labs: Laboratory Tests Test 03/28/21 06:23 White Blood Count 5.6 x10^3/uL (4.0-11.0) Red Blood Count 3.30 x10^6/uL (4.30-5.70) L Hemoglobin 10.4 g/dL (13.0-17.5) L Hematocrit 31.2 % (39.0-53.0) L Mean Corpuscular Volume 94 fL (79-100) Mean Corpuscular Hemoglobin 32 pg (25-35) Mean Corpuscular Hemoglobin Concent 34 g/dL (31-37) Red Cell Distribution Width 13.2 % (11.5-14.5) Platelet Count 186 x10^3/uL (140-400) Neutrophils (%) (Auto) 54 % (31-73) Lymphocytes (%) (Auto) 30 % (24-48) Monocytes (%) (Auto) 12 % (0-9) H Eosinophils (%) (Auto) 3 % (0-3) Basophils (%) (Auto) 1 % (0-3) Neutrophils # (Auto) 3.0 x10^3uL (1.8-7.7) Lymphocytes # (Auto) 1.7 x10^3/uL (1.0-4.8) Monocytes # (Auto) 0.7 x10^3/uL (0.0-1.1) Eosinophils # (Auto) 0.2 x10^3/uL (0.0-0.7) Basophils # (Auto) 0.0 x10^3/uL (0.0-0.2) Sodium Level 145 mmol/L (136-145) Potassium Level 4.6 mmol/L (3.5-5.1) Chloride Level 110 mmol/L (98-107) H Carbon Dioxide Level 24 mmol/L (21-32) Anion Gap 11 (6-14) Blood Urea Nitrogen 63 mg/dL (8-26) H Creatinine 2.9 mg/dL (0.7-1.3) H Estimated GFR (Cockcroft-Gault) 20.8 BUN/Creatinine Ratio 22 (6-20) H Glucose Level 94 mg/dL (70-99) Calcium Level 8.5 mg/dL (8.5-10.1) Total Bilirubin 0.4 mg/dL (0.2-1.0) Aspartate Amino Transferase (AST) 11 U/L (15-37) L Alanine Aminotransferase (ALT) 18 U/L (16-63) Alkaline Phosphatase 83 U/L (46-116) Total Protein 6.4 g/dL (6.4-8.2) Albumin 3.3 g/dL (3.4-5.0) L Albumin/Globulin Ratio 1.1 (1.0-1.7) Valproic Acid Level 12 mcg/mL (50-100) L Valproic Acid Last Dose Date 03/27/2021 Valproic Acid Last Dose Time 1700 Current Medications: Meds: Laboratory Tests Test 03/28/21 06:23 White Blood Count 5.6 x10^3/uL Red Blood Count 3.30 x10^6/uL Hemoglobin 10.4 g/dL Hematocrit 31.2 % Mean Corpuscular Volume 94 fL Mean Corpuscular Hemoglobin 32 pg Mean Corpuscular Hemoglobin Concent 34 g/dL Red Cell Distribution Width 13.2 % Platelet Count 186 x10^3/uL Neutrophils (%) (Auto) 54 % Lymphocytes (%) (Auto) 30 % Monocytes (%) (Auto) 12 % Eosinophils (%) (Auto) 3 % Basophils (%) (Auto) 1 % Neutrophils # (Auto) 3.0 x10^3uL Lymphocytes # (Auto) 1.7 x10^3/uL Monocytes # (Auto) 0.7 x10^3/uL Eosinophils # (Auto) 0.2 x10^3/uL Basophils # (Auto) 0.0 x10^3/uL Sodium Level 145 mmol/L Potassium Level 4.6 mmol/L Chloride Level 110 mmol/L Carbon Dioxide Level 24 mmol/L Anion Gap 11 Blood Urea Nitrogen 63 mg/dL Creatinine 2.9 mg/dL Estimated GFR (Cockcroft-Gault) 20.8 BUN/Creatinine Ratio 22 Glucose Level 94 mg/dL Calcium Level 8.5 mg/dL Total Bilirubin 0.4 mg/dL Aspartate Amino Transf (AST/SGOT) 11 U/L Alanine Aminotransferase (ALT/SGPT) 18 U/L Alkaline Phosphatase 83 U/L Total Protein 6.4 g/dL Albumin 3.3 g/dL Albumin/Globulin Ratio 1.1 Valproic Acid (Depakene) Level 12 mcg/mL Valproic Acid Last Dose Date 03/27/2021 Valproic Acid Last Dose Time 1700 Current Medications Medications (Trade) Dose Ordered Sig/Eve Route PRN Reason Start Time Stop Time Status Last Admin Dose Admin Acetaminophen (Tylenol) 650 mg PRN Q6HRS PRN PO PAIN/FEVER 03/21/21 20:00 03/24/21 20:51 Carvedilol (Coreg) 3.125 mg BIDWMEALS PO 03/22/21 08:00 03/28/21 08:18 Celecoxib (CeleBREX) 50 mg BID PO 03/21/21 21:00 03/23/21 19:59 DC Vitamin D (Vitamin D3) 1,000 unit DAILY PO 03/22/21 09:00 03/28/21 08:18 Hydroxyzine HCl (Atarax Oral Syrup) 10 mg TID PO 03/21/21 21:00 03/21/21 21:55 DC Ibuprofen (Motrin) 200 mg PRN Q6HRS PRN PO INFLAMMATION 03/21/21 21:15 03/24/21 14:54 DC Lorazepam (Ativan) 0.5 mg PRN Q6HRS PRN PO ANXIETY 03/21/21 20:00 03/23/21 14:59 DC 03/23/21 14:03 Melatonin (Melatonin) 3 mg QHS PO 03/21/21 21:00 03/27/21 20:35 Fish Oil (Fish Oil) 1,000 mg DAILY PO 03/22/21 09:00 03/28/21 08:18 Oxybutynin Chloride (Ditropan) 5 mg DAILY PO 03/22/21 09:00 03/28/21 08:18 Polymyxin/ Trimethoprim Sulfate (Polytrim) 1 drop TID OU 03/21/21 21:00 03/23/21 19:59 DC Cyanocobalamin (Vitamin B-12) 1,000 mcg DAILY PO 03/22/21 09:00 03/28/21 08:19 Multivitamins/ Calcium (Thera-M Plus) 1 tab DAILY PO 03/22/21 09:00 03/28/21 08:19 Multivitamins/ Minerals (I-[place]) 1 tab DAILY PO 03/22/21 09:00 03/28/21 08:19 Non-Formulary Medication ([Vitamin D + [place] 3] ) 1 tab DAILY PO 03/22/21 09:00 03/21/21 21:16 DC Hydroxyzine HCl (Atarax) 10 mg TID PO 03/22/21 09:00 03/26/21 16:04 DC 03/26/21 12:07 Acetaminophen (Tylenol) 650 mg PRN Q6HRS PRN PO MILD PAIN / TEMP > 100.3'F 03/22/21 00:30 UNV Multi-Ingredient Ointment (Analgesic [place]) 1 sindi PRN QID PRN TP MUSCLE PAIN 03/22/21 00:30 Al Hydroxide/Mg Hydroxide (Mylanta Plus Xs) 15 ml PRN AFTMEALHC PRN PO DYSPEPSIA 03/22/21 00:30 Magnesium Hydroxide (Milk Of Magnesia) 2,400 mg PRN QHS PRN PO CONSTIPATION 03/22/21 00:30 03/27/21 12:39 Olanzapine (ZyPREXA ZYDIS) 2.5 mg PRN Q2HR PRN PO PSYCHOSIS 03/23/21 15:00 03/27/21 20:35 Sertraline HCl (Zoloft) 25 mg DAILY PO 03/24/21 09:00 03/27/21 08:00 DC 03/26/21 08:34 Sertraline HCl (Zoloft) 50 mg DAILY PO 03/27/21 09:00 03/28/21 08:19 Divalproex Sodium (Depakote) 125 mg DAILY PO 03/25/21 09:00 03/28/21 08:18 Divalproex Sodium (Depakote Sprinkles) 125 mg DAILYWSUP PO 03/24/21 17:00 03/27/21 17:11 Medroxyprogesterone Acetate (Provera) 2.5 mg DAILY PO 03/26/21 09:00 03/28/21 08:19 Hydroxyzine HCl (Atarax) 10 mg BID PO 03/26/21 21:00 03/28/21 23:55 03/28/21 08:19 Quetiapine Fumarate (SEROquel) 12.5 mg 0900,1700 PO 03/27/21 09:00 03/28/21 08:18 Hydroxyzine HCl (Atarax) 10 mg DAILY PO 03/29/21 09:00 03/31/21 09:01 I have reviewed the current psychotropics carefully including drug interactions. Risk benefit ratio favors no change other than as noted in my dictated progress note. Diagnosis: Problems: (1) Impulse control disorder, unspecified (2) Anxiety disorder, unspecified (3) Dementia, vascular, with depression (4) Dementia, vascular, with delusions (5) Dementia in Alzheimer's disease with depression (6) Dementia in Alzheimer's disease with delusions (7) Dementia of the Alzheimer's type with early onset with behavioral disturbance (8) Major neurocognitive disorder ALFREDO HARDIN MD Mar 28, 2021 09:11
[2021-03-28 16:03] VITALS: BP 160/82
[2021-03-28] MEDS: DIVALPROEX 125 MG CAP.SPRINK PO SCH (17:29)
[2021-03-28] MEDS: MELATONIN 3 MG TABLET PO SCH (20:45)
--- NOTE | 2021-03-28 22:07 | PDOC ---
Exam Note: Fermin Note: Please also refer to the separate dictated note~for this date of service dictated separately.~Patient seen individually. Discussed the patient with Nursing staff reviewed the chart.~Reviewed interim history and current functioning. Reviewed vital signs,~Labs/ Radiology~and current medications noted below. Continue current treatment with the changes noted in the dictated addendum note Assessment: Vital Signs/I&O: Vital Signs Date Time Temp Pulse Resp B/P (MAP) Pulse Ox O2 Delivery O2 Flow Rate FiO2 03/28/21 17:29 59 160/82 03/28/21 16:03 98.1 20 99 Room Air I & O 03/27/21 03/27/21 03/28/21 15:00 23:00 07:00 Intake Total 960 ml 240 ml Balance 960 ml 240 ml Labs: Laboratory Tests Test 03/28/21 06:23 White Blood Count 5.6 x10^3/uL (4.0-11.0) Red Blood Count 3.30 x10^6/uL (4.30-5.70) L Hemoglobin 10.4 g/dL (13.0-17.5) L Hematocrit 31.2 % (39.0-53.0) L Mean Corpuscular Volume 94 fL (79-100) Mean Corpuscular Hemoglobin 32 pg (25-35) Mean Corpuscular Hemoglobin Concent 34 g/dL (31-37) Red Cell Distribution Width 13.2 % (11.5-14.5) Platelet Count 186 x10^3/uL (140-400) Neutrophils (%) (Auto) 54 % (31-73) Lymphocytes (%) (Auto) 30 % (24-48) Monocytes (%) (Auto) 12 % (0-9) H Eosinophils (%) (Auto) 3 % (0-3) Basophils (%) (Auto) 1 % (0-3) Neutrophils # (Auto) 3.0 x10^3uL (1.8-7.7) Lymphocytes # (Auto) 1.7 x10^3/uL (1.0-4.8) Monocytes # (Auto) 0.7 x10^3/uL (0.0-1.1) Eosinophils # (Auto) 0.2 x10^3/uL (0.0-0.7) Basophils # (Auto) 0.0 x10^3/uL (0.0-0.2) Sodium Level 145 mmol/L (136-145) Potassium Level 4.6 mmol/L (3.5-5.1) Chloride Level 110 mmol/L (98-107) H Carbon Dioxide Level 24 mmol/L (21-32) Anion Gap 11 (6-14) Blood Urea Nitrogen 63 mg/dL (8-26) H Creatinine 2.9 mg/dL (0.7-1.3) H Estimated GFR (Cockcroft-Gault) 20.8 BUN/Creatinine Ratio 22 (6-20) H Glucose Level 94 mg/dL (70-99) Calcium Level 8.5 mg/dL (8.5-10.1) Total Bilirubin 0.4 mg/dL (0.2-1.0) Aspartate Amino Transferase (AST) 11 U/L (15-37) L Alanine Aminotransferase (ALT) 18 U/L (16-63) Alkaline Phosphatase 83 U/L (46-116) Total Protein 6.4 g/dL (6.4-8.2) Albumin 3.3 g/dL (3.4-5.0) L Albumin/Globulin Ratio 1.1 (1.0-1.7) Valproic Acid Level 12 mcg/mL (50-100) L Valproic Acid Last Dose Date 03/27/2021 Valproic Acid Last Dose Time 1700 Current Medications: Meds: Laboratory Tests Test 03/28/21 06:23 White Blood Count 5.6 x10^3/uL Red Blood Count 3.30 x10^6/uL Hemoglobin 10.4 g/dL Hematocrit 31.2 % Mean Corpuscular Volume 94 fL Mean Corpuscular Hemoglobin 32 pg Mean Corpuscular Hemoglobin Concent 34 g/dL Red Cell Distribution Width 13.2 % Platelet Count 186 x10^3/uL Neutrophils (%) (Auto) 54 % Lymphocytes (%) (Auto) 30 % Monocytes (%) (Auto) 12 % Eosinophils (%) (Auto) 3 % Basophils (%) (Auto) 1 % Neutrophils # (Auto) 3.0 x10^3uL Lymphocytes # (Auto) 1.7 x10^3/uL Monocytes # (Auto) 0.7 x10^3/uL Eosinophils # (Auto) 0.2 x10^3/uL Basophils # (Auto) 0.0 x10^3/uL Sodium Level 145 mmol/L Potassium Level 4.6 mmol/L Chloride Level 110 mmol/L Carbon Dioxide Level 24 mmol/L Anion Gap 11 Blood Urea Nitrogen 63 mg/dL Creatinine 2.9 mg/dL Estimated GFR (Cockcroft-Gault) 20.8 BUN/Creatinine Ratio 22 Glucose Level 94 mg/dL Calcium Level 8.5 mg/dL Total Bilirubin 0.4 mg/dL Aspartate Amino Transf (AST/SGOT) 11 U/L Alanine Aminotransferase (ALT/SGPT) 18 U/L Alkaline Phosphatase 83 U/L Total Protein 6.4 g/dL Albumin 3.3 g/dL Albumin/Globulin Ratio 1.1 Valproic Acid (Depakene) Level 12 mcg/mL Valproic Acid Last Dose Date 03/27/2021 Valproic Acid Last Dose Time 1700 Current Medications Medications (Trade) Dose Ordered Sig/Eve Route PRN Reason Start Time Stop Time Status Last Admin Dose Admin Acetaminophen (Tylenol) 650 mg PRN Q6HRS PRN PO PAIN/FEVER 03/21/21 20:00 03/24/21 20:51 Carvedilol (Coreg) 3.125 mg BIDWMEALS PO 03/22/21 08:00 03/28/21 17:29 Celecoxib (CeleBREX) 50 mg BID PO 03/21/21 21:00 03/23/21 19:59 DC Vitamin D (Vitamin D3) 1,000 unit DAILY PO 03/22/21 09:00 03/28/21 08:18 Hydroxyzine HCl (Atarax Oral Syrup) 10 mg TID PO 03/21/21 21:00 03/21/21 21:55 DC Ibuprofen (Motrin) 200 mg PRN Q6HRS PRN PO INFLAMMATION 03/21/21 21:15 03/24/21 14:54 DC Lorazepam (Ativan) 0.5 mg PRN Q6HRS PRN PO ANXIETY 03/21/21 20:00 03/23/21 14:59 DC 03/23/21 14:03 Melatonin (Melatonin) 3 mg QHS PO 03/21/21 21:00 03/28/21 20:45 Fish Oil (Fish Oil) 1,000 mg DAILY PO 03/22/21 09:00 03/28/21 08:18 Oxybutynin Chloride (Ditropan) 5 mg DAILY PO 03/22/21 09:00 03/28/21 08:18 Polymyxin/ Trimethoprim Sulfate (Polytrim) 1 drop TID OU 03/21/21 21:00 03/23/21 19:59 DC Cyanocobalamin (Vitamin B-12) 1,000 mcg DAILY PO 03/22/21 09:00 03/28/21 08:19 Multivitamins/ Calcium (Thera-M Plus) 1 tab DAILY PO 03/22/21 09:00 03/28/21 08:19 Multivitamins/ Minerals (I-[place]) 1 tab DAILY PO 03/22/21 09:00 03/28/21 08:19 Non-Formulary Medication ([Vitamin D + [place] 3] ) 1 tab DAILY PO 03/22/21 09:00 03/21/21 21:16 DC Hydroxyzine HCl (Atarax) 10 mg TID PO 03/22/21 09:00 03/26/21 16:04 DC 03/26/21 12:07 Acetaminophen (Tylenol) 650 mg PRN Q6HRS PRN PO MILD PAIN / TEMP > 100.3'F 03/22/21 00:30 UNV Multi-Ingredient Ointment (Analgesic [place]) 1 sindi PRN QID PRN TP MUSCLE PAIN 03/22/21 00:30 Al Hydroxide/Mg Hydroxide (Mylanta Plus Xs) 15 ml PRN AFTMEALHC PRN PO DYSPEPSIA 03/22/21 00:30 Magnesium Hydroxide (Milk Of Magnesia) 2,400 mg PRN QHS PRN PO CONSTIPATION 03/22/21 00:30 03/27/21 12:39 Olanzapine (ZyPREXA ZYDIS) 2.5 mg PRN Q2HR PRN PO PSYCHOSIS 03/23/21 15:00 03/27/21 20:35 Sertraline HCl (Zoloft) 25 mg DAILY PO 03/24/21 09:00 03/27/21 08:00 DC 03/26/21 08:34 Sertraline HCl (Zoloft) 50 mg DAILY PO 03/27/21 09:00 03/28/21 08:19 Divalproex Sodium (Depakote) 125 mg DAILY PO 03/25/21 09:00 03/28/21 17:53 DC 03/28/21 08:18 Divalproex Sodium (Depakote Sprinkles) 125 mg DAILYWSUP PO 03/24/21 17:00 03/28/21 17:53 DC 03/28/21 17:29 Medroxyprogesterone Acetate (Provera) 2.5 mg DAILY PO 03/26/21 09:00 03/28/21 08:19 Hydroxyzine HCl (Atarax) 10 mg BID PO 03/26/21 21:00 03/28/21 23:55 03/28/21 20:45 Quetiapine Fumarate (SEROquel) 12.5 mg 0900,1700 PO 03/27/21 09:00 03/28/21 17:29 Hydroxyzine HCl (Atarax) 10 mg DAILY PO 03/29/21 09:00 03/31/21 09:01 Divalproex Sodium (Depakote Sprinkles) 250 mg DAILYWSUP PO 03/29/21 17:00 Divalproex Sodium (Depakote) 250 mg DAILY PO 03/29/21 09:00 I have reviewed the current psychotropics carefully including drug interactions. Risk benefit ratio favors no change other than as noted in my dictated progress note. Diagnosis: Problems: (1) Impulse control disorder, unspecified (2) Anxiety disorder, unspecified (3) Dementia, vascular, with depression (4) Dementia, vascular, with delusions (5) Dementia in Alzheimer's disease with depression (6) Dementia in Alzheimer's disease with delusions (7) Dementia of the Alzheimer's type with early onset with behavioral disturbance (8) Major neurocognitive disorder ALFREDO HARDIN MD Mar 28, 2021 22:07
--- NOTE | 2021-03-29 00:32 | NUR ---
Nursing Note Pleasant and calm cooperative. In day room watching TV. Compliant with PO meds. Denies pain, no agitation.
[2021-03-29 05:04] VITALS: BP 162/79
[2021-03-29] MEDS: CHOLECALCIFEROL (VITAMIN D3) 1,000 UNIT TABLET PO SCH (08:31)
[2021-03-29] MEDS: CYANOCOBALAMIN (VITAMIN B-12) 1,000 MCG TABLET. PO SCH (08:31)
[2021-03-29] MEDS: CARVEDILOL 3.125 MG TABLET PO SCH ×2 (08:31→15:54)
[2021-03-29] MEDS: SERTRALINE 50 MG TABLET. PO SCH (08:31)
[2021-03-29] MEDS: hydrOXYzine HCL 10 MG TABLET PO SCH (08:31)
[2021-03-29] MEDS: QUEtiapine 25 MG TABLET. PO SCH ×2 (08:31→15:53)
[2021-03-29] MEDS: DIVALPROEX SODIUM 250 MG TABLET.DR. PO SCH (08:32)
[2021-03-29] MEDS: OXYBUTYNIN CHLORIDE 5 MG TABLET PO SCH (08:32)
[2021-03-29] MEDS: MULTIVITAMIN with MINERAL TABLET. PO SCH (08:32)
[2021-03-29] MEDS: OMEGA-3 FATTY ACIDS/FISH OIL 1,000 MG CAPSULE. PO SCH (08:32)
[2021-03-29] MEDS: MULTIVITAMIN I-VITE TABLET. PO SCH (08:32)
--- NOTE | 2021-03-29 10:59 | NUR ---
Pt A&O to name and only. Compliant with medications and required encouragement/reminders to complete his medications. He has been absent of SI/HI/VH/AH/delusions/pain. Absent of verbal/physical aggression, his interactions with others have been appropriate. He has no complaints or concerns at this time. Plan of care continues, will pass to next shift.
[2021-03-29 15:52] VITALS: BP 98/60
[2021-03-29] MEDS: DIVALPROEX 125 MG CAP.SPRINK PO SCH (17:11)
[2021-03-29] MEDS: MELATONIN 3 MG TABLET PO SCH (20:44)
--- NOTE | 2021-03-29 21:54 | NUR ---
Nursing Note Pt confused and combative with staff, difficult to redirect speaks in a word salad. Zyprexa Ady given, pt now wandering through the unit, wants a sandwich PB&J. Staff attempting to get patient to shower. Pt unable to understand most directions.
--- NOTE | 2021-03-29 22:01 | PDOC ---
Exam Note: Fermin Note: Please also refer to the separate dictated note~for this date of service dictated separately.~Patient seen individually. Discussed the patient with Nursing staff reviewed the chart.~Reviewed interim history and current functioning. Reviewed vital signs,~Labs/ Radiology~and current medications noted below. Continue current treatment with the changes noted in the dictated addendum note Assessment: Vital Signs/I&O: Vital Signs Date Time Temp Pulse Resp B/P (MAP) Pulse Ox O2 Delivery O2 Flow Rate FiO2 03/29/21 15:54 62 98/60 03/29/21 15:52 98.8 16 98 03/28/21 16:03 Room Air I & O 03/28/21 03/28/21 03/29/21 15:00 23:00 07:00 Intake Total 720 ml 360 ml Balance 720 ml 360 ml Current Medications: Meds: Current Medications Medications (Trade) Dose Ordered Sig/Eve Route PRN Reason Start Time Stop Time Status Last Admin Dose Admin Acetaminophen (Tylenol) 650 mg PRN Q6HRS PRN PO PAIN/FEVER 03/21/21 20:00 03/24/21 20:51 Carvedilol (Coreg) 3.125 mg BIDWMEALS PO 03/22/21 08:00 03/29/21 15:54 Celecoxib (CeleBREX) 50 mg BID PO 03/21/21 21:00 03/23/21 19:59 DC Vitamin D (Vitamin D3) 1,000 unit DAILY PO 03/22/21 09:00 03/29/21 08:31 Hydroxyzine HCl (Atarax Oral Syrup) 10 mg TID PO 03/21/21 21:00 03/21/21 21:55 DC Ibuprofen (Motrin) 200 mg PRN Q6HRS PRN PO INFLAMMATION 03/21/21 21:15 03/24/21 14:54 DC Lorazepam (Ativan) 0.5 mg PRN Q6HRS PRN PO ANXIETY 03/21/21 20:00 03/23/21 14:59 DC 03/23/21 14:03 Melatonin (Melatonin) 3 mg QHS PO 03/21/21 21:00 03/29/21 20:44 Fish Oil (Fish Oil) 1,000 mg DAILY PO 03/22/21 09:00 03/29/21 08:32 Oxybutynin Chloride (Ditropan) 5 mg DAILY PO 03/22/21 09:00 03/29/21 08:32 Polymyxin/ Trimethoprim Sulfate (Polytrim) 1 drop TID OU 03/21/21 21:00 03/23/21 19:59 DC Cyanocobalamin (Vitamin B-12) 1,000 mcg DAILY PO 03/22/21 09:00 03/29/21 08:31 Multivitamins/ Calcium (Thera-M Plus) 1 tab DAILY PO 03/22/21 09:00 03/29/21 08:32 Multivitamins/ Minerals (I-[place]) 1 tab DAILY PO 03/22/21 09:00 03/29/21 08:32 Non-Formulary Medication ([Vitamin D + [place] 3] ) 1 tab DAILY PO 03/22/21 09:00 03/21/21 21:16 DC Hydroxyzine HCl (Atarax) 10 mg TID PO 03/22/21 09:00 03/26/21 16:04 DC 03/26/21 12:07 Acetaminophen (Tylenol) 650 mg PRN Q6HRS PRN PO MILD PAIN / TEMP > 100.3'F 03/22/21 00:30 UNV Multi-Ingredient Ointment (Analgesic [place]) 1 sindi PRN QID PRN TP MUSCLE PAIN 03/22/21 00:30 Al Hydroxide/Mg Hydroxide (Mylanta Plus Xs) 15 ml PRN AFTMEALHC PRN PO DYSPEPSIA 03/22/21 00:30 Magnesium Hydroxide (Milk Of Magnesia) 2,400 mg PRN QHS PRN PO CONSTIPATION 03/22/21 00:30 03/27/21 12:39 Olanzapine (ZyPREXA ZYDIS) 2.5 mg PRN Q2HR PRN PO PSYCHOSIS 03/23/21 15:00 03/29/21 20:44 Sertraline HCl (Zoloft) 25 mg DAILY PO 03/24/21 09:00 03/27/21 08:00 DC 03/26/21 08:34 Sertraline HCl (Zoloft) 50 mg DAILY PO 03/27/21 09:00 03/29/21 08:31 Divalproex Sodium (Depakote) 125 mg DAILY PO 03/25/21 09:00 03/28/21 17:53 DC 03/28/21 08:18 Divalproex Sodium (Depakote Sprinkles) 125 mg DAILYWSUP PO 03/24/21 17:00 03/28/21 17:53 DC 03/28/21 17:29 Medroxyprogesterone Acetate (Provera) 2.5 mg DAILY PO 03/26/21 09:00 03/29/21 15:34 DC 03/29/21 08:31 Hydroxyzine HCl (Atarax) 10 mg BID PO 03/26/21 21:00 03/28/21 23:55 DC 03/28/21 20:45 Quetiapine Fumarate (SEROquel) 12.5 mg 0900,1700 PO 03/27/21 09:00 03/29/21 15:53 Hydroxyzine HCl (Atarax) 10 mg DAILY PO 03/29/21 09:00 03/31/21 09:01 03/29/21 08:31 Divalproex Sodium (Depakote Sprinkles) 250 mg DAILYWSUP PO 03/29/21 17:00 03/29/21 17:11 Divalproex Sodium (Depakote) 250 mg DAILY PO 03/29/21 09:00 03/29/21 08:32 Medroxyprogesterone Acetate (Provera) 5 mg DAILY PO 03/30/21 09:00 Current Medications Medications (Trade) Dose Ordered Sig/Eve Route PRN Reason Start Time Stop Time Status Last Admin Dose Admin Hydroxyzine HCl (Atarax) 10 mg DAILY PO 03/29/21 09:00 03/31/21 09:01 03/29/21 08:31 Divalproex Sodium (Depakote Sprinkles) 250 mg DAILYWSUP PO 03/29/21 17:00 03/29/21 17:11 Divalproex Sodium (Depakote) 250 mg DAILY PO 03/29/21 09:00 03/29/21 08:32 I have reviewed the current psychotropics carefully including drug interactions. Risk benefit ratio favors no change other than as noted in my dictated progress note. Diagnosis: Problems: (1) Impulse control disorder, unspecified (2) Anxiety disorder, unspecified (3) Dementia, vascular, with depression (4) Dementia, vascular, with delusions (5) Dementia in Alzheimer's disease with depression (6) Dementia in Alzheimer's disease with delusions (7) Dementia of the Alzheimer's type with early onset with behavioral di sturbance (8) Major neurocognitive disorder ALFREDO HARDIN MD Mar 29, 2021 22:01
[2021-03-30] MEDS: CARVEDILOL 3.125 MG TABLET PO SCH ×2 (05:46→17:34)
[2021-03-30] MEDS: OXYBUTYNIN CHLORIDE 5 MG TABLET PO SCH (05:47)
[2021-03-30] MEDS: OMEGA-3 FATTY ACIDS/FISH OIL 1,000 MG CAPSULE. PO SCH (05:47)
[2021-03-30] MEDS: hydrOXYzine HCL 10 MG TABLET PO SCH (05:47)
[2021-03-30] MEDS: DIVALPROEX SODIUM 250 MG TABLET.DR. PO SCH (05:47)
[2021-03-30] MEDS: MULTIVITAMIN I-VITE TABLET. PO SCH (05:47)
[2021-03-30] MEDS: MULTIVITAMIN with MINERAL TABLET. PO SCH (05:48)
[2021-03-30] MEDS: CYANOCOBALAMIN (VITAMIN B-12) 1,000 MCG TABLET. PO SCH (05:48)
[2021-03-30] MEDS: SERTRALINE 50 MG TABLET. PO SCH (05:48)
[2021-03-30] MEDS: QUEtiapine 25 MG TABLET. PO SCH ×2 (05:48→17:37)
[2021-03-30] MEDS: CHOLECALCIFEROL (VITAMIN D3) 1,000 UNIT TABLET PO SCH (05:48)
[2021-03-30] MEDS: medroxyPROGESTERone 5 MG TABLET PO SCH (05:48)
[2021-03-30 06:21] VITALS: BP 148/81
--- NOTE | 2021-03-30 07:42 | PDOC ---
Exam Note: Fermin Note: This note is a late entry for 03/28/2021 covers elements not covered in my initial note. Subjective: The patient was reviewed on telehealth rounds on 03/28/2021 due to the COVID-19 pandemic. There have been 3 patients on the unit that have turned up positive today, 03/28 and they are being transitioned to the [facility] floor per Dr. Kemp. There have also been 2 staff members that have turned up positive for COVID-19 and all the patients are going to be tested weekly for the COVID-19 along with every staff member going forward. I had not had the opportunity to be tested myself and will await completing this before considering [id number] rounds on the unit. Discussed with Saman CAICEDO and reviewed the chart. He slept 5-3/4 hours previous night. Previous evening the patient was quite irritable, resistive with staff members. She was agitated, threatening staff previous evening and trying to punch staff with his fist. He has done better during the day on 03/28. Review of Systems: No CV, , pulmonary, eye, ENT system symptoms on review. Reliability poor. Mental Status Exam: The patient is just oriented to himself. Insight and judgment, recent and remote memory, attention and concentration, fund of knowledge is poor consistent with his diagnoses. Laboratory Data: Reviewed. Impression: Major neurocognitive disorder Alzheimer vascular with delusion, depression, behavioral disturbance. Anxiety disorder unspecified. Impulse control disorder unspecified. Plan: Given the patients ongoing mood lability, valproic acid level is subtherapeutic we will increase Depakote to 250 mg twice a day. Check CBC, CMP, valproic acid level in 3 days. Assessment: Vital Signs/I&O: Vital Signs Date Time Temp Pulse Resp B/P (MAP) Pulse Ox O2 Delivery O2 Flow Rate FiO2 03/30/21 06:21 98.2 61 16 148/81 (103) 98 03/28/21 16:03 Room Air I & O 03/29/21 03/29/21 03/30/21 15:00 23:00 07:00 Intake Total 480 ml 720 ml Balance 480 ml 720 ml Current Medications: Meds: Current Medications Medications (Trade) Dose Ordered Sig/Eve Route PRN Reason Start Time Stop Time Status Last Admin Dose Admin Acetaminophen (Tylenol) 650 mg PRN Q6HRS PRN PO PAIN/FEVER 03/21/21 20:00 03/24/21 20:51 Carvedilol (Coreg) 3.125 mg BIDWMEALS PO 03/22/21 08:00 03/30/21 05:46 Celecoxib (CeleBREX) 50 mg BID PO 03/21/21 21:00 03/23/21 19:59 DC Vitamin D (Vitamin D3) 1,000 unit DAILY PO 03/22/21 09:00 03/30/21 05:48 Hydroxyzine HCl (Atarax Oral Syrup) 10 mg TID PO 03/21/21 21:00 03/21/21 21:55 DC Ibuprofen (Motrin) 200 mg PRN Q6HRS PRN PO INFLAMMATION 03/21/21 21:15 03/24/21 14:54 DC Lorazepam (Ativan) 0.5 mg PRN Q6HRS PRN PO ANXIETY 03/21/21 20:00 03/23/21 14:59 DC 03/23/21 14:03 Melatonin (Melatonin) 3 mg QHS PO 03/21/21 21:00 03/29/21 20:44 Fish Oil (Fish Oil) 1,000 mg DAILY PO 03/22/21 09:00 03/30/21 05:47 Oxybutynin Chloride (Ditropan) 5 mg DAILY PO 03/22/21 09:00 03/30/21 05:47 Polymyxin/ Trimethoprim Sulfate (Polytrim) 1 drop TID OU 03/21/21 21:00 03/23/21 19:59 DC Cyanocobalamin (Vitamin B-12) 1,000 mcg DAILY PO 03/22/21 09:00 03/30/21 05:48 Multivitamins/ Calcium (Thera-M Plus) 1 tab DAILY PO 03/22/21 09:00 03/30/21 05:48 Multivitamins/ Minerals (I-[place]) 1 tab DAILY PO 03/22/21 09:00 03/30/21 05:47 Non-Formulary Medication ([Vitamin D + [place] 3] ) 1 tab DAILY PO 03/22/21 09:00 03/21/21 21:16 DC Hydroxyzine HCl (Atarax) 10 mg TID PO 03/22/21 09:00 03/26/21 16:04 DC 7/21/21 12:07 Acetaminophen (Tylenol) 650 mg PRN Q6HRS PRN PO MILD PAIN / TEMP > 100.3'F 03/22/21 00:30 UNV Multi-Ingredient Ointment (Analgesic [place]) 1 sindi PRN QID PRN TP MUSCLE PAIN 03/22/21 00:30 Al Hydroxide/Mg Hydroxide (Mylanta Plus Xs) 15 ml PRN AFTMEALHC PRN PO DYSPEPSIA 03/22/21 00:30 Magnesium Hydroxide (Milk Of Magnesia) 2,400 mg PRN QHS PRN PO CONSTIPATION 03/22/21 00:30 03/27/21 12:39 Olanzapine (ZyPREXA ZYDIS) 2.5 mg PRN Q2HR PRN PO PSYCHOSIS 03/23/21 15:00 03/29/21 20:44 Sertraline HCl (Zoloft) 25 mg DAILY PO 03/24/21 09:00 03/27/21 08:00 DC 03/26/21 08:34 Sertraline HCl (Zoloft) 50 mg DAILY PO 03/27/21 09:00 03/30/21 05:48 Divalproex Sodium (Depakote) 125 mg DAILY PO 03/25/21 09:00 03/28/21 17:53 DC 03/28/21 08:18 Divalproex Sodium (Depakote Sprinkles) 125 mg DAILYWSUP PO 03/24/21 17:00 03/28/21 17:53 DC 03/28/21 17:29 Medroxyprogesterone Acetate (Provera) 2.5 mg DAILY PO 03/26/21 09:00 03/29/21 15:34 DC 03/29/21 08:31 Hydroxyzine HCl (Atarax) 10 mg BID PO 03/26/21 21:00 03/28/21 23:55 DC 03/28/21 20:45 Quetiapine Fumarate (SEROquel) 12.5 mg 0900,1700 PO 03/27/21 09:00 03/30/21 05:48 Hydroxyzine HCl (Atarax) 10 mg DAILY PO 03/29/21 09:00 03/31/21 09:01 03/30/21 05:47 Divalproex Sodium (Depakote Sprinkles) 250 mg DAILYWSUP PO 03/29/21 17:00 03/29/21 17:11 Divalproex Sodium (Depakote) 250 mg DAILY PO 03/29/21 09:00 03/30/21 05:47 Medroxyprogesterone Acetate (Provera) 5 mg DAILY PO 03/30/21 09:00 03/30/21 05:48 Current Medications Medications (Trade) Dose Ordered Sig/Eve Route PRN Reason Start Time Stop Time Status Last Admin Dose Admin Hydroxyzine HCl (Atarax) 10 mg DAILY PO 03/29/21 09:00 03/31/21 09:01 03/30/21 05:47 Divalproex Sodium (Depakote Sprinkles) 250 mg DAILYWSUP PO 03/29/21 17:00 03/29/21 17:11 Divalproex Sodium (Depakote) 250 mg DAILY PO 03/29/21 09:00 03/30/21 05:47 Medroxyprogesterone Acetate (Provera) 5 mg DAILY PO 03/30/21 09:00 03/30/21 05:48 I have reviewed the current psychotropics carefully including drug interactions. Risk benefit ratio favors no change other than as noted in my dictated progress note. Diagnosis: Problems: (1) Impulse control disorder, unspecified (2) Anxiety disorder, unspecified (3) Dementia, vascular, with depression (4) Dementia, vascular, with delusions (5) Dementia in Alzheimer's disease with depression (6) Dementia in Alzheimer's disease with delusions (7) Dementia of the Alzheimer's type with early onset with behavioral disturbance (8) Major neurocognitive disorder ALFREDO HARDIN MD Mar 30, 2021 07:42
--- NOTE | 2021-03-30 08:46 | PDOC ---
Exam Note: Fermin Note: This note is a late entry for 03/29/2021 covers elements not covered in my initial note. Subjective: The patient was reviewed on telehealth rounds on 03/29/2021 due to the COVID-19 pandemic. Discussed with Yaneth CAICEDO and reviewed the chart. He slept 6-3/4 hours previous night. The patient remains confused, calm, compliant with medications, fairly quiet. Previous evening he was somewhat flirtatious with nursing staff. We have increased Provera to 5 mg daily. Review of Systems: No CV, , pulmonary, eye, ENT system symptoms on review. Reliability poor. Mental Status Exam: The patient is just oriented to himself. Insight and judgment, recent and remote memory, attention and concentration, fund of knowledge is poor consistent with his diagnoses. Laboratory Data: Reviewed. Impression: Major neurocognitive disorder Alzheimer vascular with delusion, depression, behavioral disturbance. Anxiety disorder unspecified. Impulse control disorder unspecified. Plan: Continue current psychotropics. The patients valproic acid level was 12 therapeutic on 125 mg b.i.d., Depakote. We will increase to 250 mg b.i.d. Check CBC, CMP, valproic acid level in 3 days. Adjust further as clinically indicated. Assessment: Vital Signs/I&O: Vital Signs Date Time Temp Pulse Resp B/P (MAP) Pulse Ox O2 Delivery O2 Flow Rate FiO2 03/30/21 06:21 98.2 61 16 148/81 (103) 98 03/28/21 16:03 Room Air I & O 03/29/21 03/29/21 03/30/21 15:00 23:00 07:00 Intake Total 480 ml 720 ml Balance 480 ml 720 ml Current Medications: Meds: Current Medications Medications (Trade) Dose Ordered Sig/Eve Route PRN Reason Start Time Stop Time Status Last Admin Dose Admin Acetaminophen (Tylenol) 650 mg PRN Q6HRS PRN PO PAIN/FEVER 03/21/21 20:00 03/24/21 20:51 Carvedilol (Coreg) 3.125 mg BIDWMEALS PO 03/22/21 08:00 03/30/21 05:46 Celecoxib (CeleBREX) 50 mg BID PO 03/21/21 21:00 03/23/21 19:59 DC Vitamin D (Vitamin D3) 1,000 unit DAILY PO 03/22/21 09:00 03/30/21 05:48 Hydroxyzine HCl (Atarax Oral Syrup) 10 mg TID PO 03/21/21 21:00 03/21/21 21:55 DC Ibuprofen (Motrin) 200 mg PRN Q6HRS PRN PO INFLAMMATION 03/21/21 21:15 03/24/21 14:54 DC Lorazepam (Ativan) 0.5 mg PRN Q6HRS PRN PO ANXIETY 03/21/21 20:00 03/23/21 14:59 DC 03/23/21 14:03 Melatonin (Melatonin) 3 mg QHS PO 03/21/21 21:00 03/29/21 20:44 Fish Oil (Fish Oil) 1,000 mg DAILY PO 03/22/21 09:00 03/30/21 05:47 Oxybutynin Chloride (Ditropan) 5 mg DAILY PO 03/22/21 09:00 03/30/21 05:47 Polymyxin/ Trimethoprim Sulfate (Polytrim) 1 drop TID OU 03/21/21 21:00 03/23/21 19:59 DC Cyanocobalamin (Vitamin B-12) 1,000 mcg DAILY PO 03/22/21 09:00 03/30/21 05:48 Multivitamins/ Calcium (Thera-M Plus) 1 tab DAILY PO 03/22/21 09:00 03/30/21 05:48 Multivitamins/ Minerals (I-[place]) 1 tab DAILY PO 03/22/21 09:00 03/30/21 05:47 Non-Formulary Medication ([Vitamin D + [place] 3] ) 1 tab DAILY PO 03/22/21 09:00 03/21/21 21:16 DC Hydroxyzine HCl (Atarax) 10 mg TID PO 03/22/21 09:00 03/26/21 16:04 DC 03/26/21 12:07 Acetaminophen (Tylenol) 650 mg PRN Q6HRS PRN PO MILD PAIN / TEMP > 100.3'F 03/22/21 00:30 UNV Multi-Ingredient Ointment (Analgesic [place]) 1 sindi PRN QID PRN TP MUSCLE PAIN 03/22/21 00:30 Al Hydroxide/Mg Hydroxide (Mylanta Plus Xs) 15 ml PRN AFTMEALHC PRN PO DYSPEPSIA 03/22/21 00:30 Magnesium Hydroxide (Milk Of Magnesia) 2,400 mg PRN QHS PRN PO CONSTIPATION 03/22/21 00:30 03/27/21 12:39 Olanzapine (ZyPREXA ZYDIS) 2.5 mg PRN Q2HR PRN PO PSYCHOSIS 03/23/21 15:00 03/29/21 20:44 Sertraline HCl (Zoloft) 25 mg DAILY PO 03/24/21 09:00 03/27/21 08:00 DC 03/26/21 08:34 Sertraline HCl (Zoloft) 50 mg DAILY PO 03/27/21 09:00 03/30/21 05:48 Divalproex Sodium (Depakote) 125 mg DAILY PO 03/25/21 09:00 03/28/21 17:53 DC 03/28/21 08:18 Divalproex Sodium (Depakote Sprinkles) 125 mg DAILYWSUP PO 03/24/21 17:00 03/28/21 17:53 DC 03/28/21 17:29 Medroxyprogesterone Acetate (Provera) 2.5 mg DAILY PO 03/26/21 09:00 03/29/21 15:34 DC 03/29/21 08:31 Hydroxyzine HCl (Atarax) 10 mg BID PO 03/26/21 21:00 03/28/21 23:55 DC 03/28/21 20:45 Quetiapine Fumarate (SEROquel) 12.5 mg 0900,1700 PO 03/27/21 09:00 03/30/21 05:48 Hydroxyzine HCl (Atarax) 10 mg DAILY PO 03/29/21 09:00 03/31/21 09:01 03/30/21 05:47 Divalproex Sodium (Depakote Sprinkles) 250 mg DAILYWSUP PO 03/29/21 17:00 03/29/21 17:11 Divalproex Sodium (Depakote) 250 mg DAILY PO 03/29/21 09:00 03/30/21 05:47 Medroxyprogesterone Acetate (Provera) 5 mg DAILY PO 03/30/21 09:00 03/30/21 05:48 Current Medications Medications (Trade) Dose Ordered Sig/Eve Route PRN Reason Start Time Stop Time Status Last Admin Dose Admin Hydroxyzine HCl (Atarax) 10 mg DAILY PO 03/29/21 09:00 03/31/21 09:01 03/30/21 05:47 Divalproex Sodium (Depakote Sprinkles) 250 mg DAILYWSUP PO 03/29/21 17:00 03/29/21 17:11 Divalproex Sodium (Depakote) 250 mg DAILY PO 03/29/21 09:00 03/30/21 05:47 Medroxyprogesterone Acetate (Provera) 5 mg DAILY PO 03/30/21 09:00 03/30/21 05:48 I have reviewed the current psychotropics carefully including drug interactions. Risk benefit ratio favors no change other than as noted in my dictated progress note. Diagnosis: Problems: (1) Impulse control disorder, unspecified (2) Anxiety disorder, unspecified (3) Dementia, vascular, with depression (4) Dementia, vascular, with delusions (5) Dementia in Alzheimer's disease with depression (6) Dementia in Alzheimer's disease with delusions (7) Dementia of the Alzheimer's type with early onset with behavioral disturbance (8) Major neurocognitive disorder ALFREDO HARDIN MD Mar 30, 2021 08:45
--- NOTE | 2021-03-30 14:33 | NUR ---
Patient confused disorganized. Alert, oriented to self. Medication compliant takes medication whole. Patient speaks in word salad. Redirection is hard at times. Today patient is walking with a shuffle, no complaints of discomfort or pain from patient. Patient has been cooperative with staff. Patient wandering hallways, pleasant to peers.
[2021-03-30 16:18] VITALS: BP 147/81
[2021-03-30] MEDS: DIVALPROEX 125 MG CAP.SPRINK PO SCH (17:35)
[2021-03-30] MEDS: MELATONIN 3 MG TABLET PO SCH (19:52)
--- NOTE | 2021-03-30 21:57 | PDOC ---
Exam Note: Fermin Note: Please also refer to the separate dictated note~for this date of service dictated separately.~Patient seen individually. Discussed the patient with Nursing staff reviewed the chart.~Reviewed interim history and current functioning. Reviewed vital signs,~Labs/ Radiology~and current medications noted below. Continue current treatment with the changes noted in the dictated addendum note Assessment: Vital Signs/I&O: Vital Signs Date Time Temp Pulse Resp B/P (MAP) Pulse Ox O2 Delivery O2 Flow Rate FiO2 03/30/21 17:34 60 147/81 03/30/21 16:18 97.1 20 96 03/28/21 16:03 Room Air I & O 03/29/21 03/29/21 03/30/21 15:00 23:00 07:00 Intake Total 480 ml 720 ml Balance 480 ml 720 ml Current Medications: Meds: Current Medications Medications (Trade) Dose Ordered Sig/Eve Route PRN Reason Start Time Stop Time Status Last Admin Dose Admin Acetaminophen (Tylenol) 650 mg PRN Q6HRS PRN PO PAIN/FEVER 03/21/21 20:00 03/24/21 20:51 Carvedilol (Coreg) 3.125 mg BIDWMEALS PO 03/22/21 08:00 03/30/21 17:34 Celecoxib (CeleBREX) 50 mg BID PO 03/21/21 21:00 03/23/21 19:59 DC Vitamin D (Vitamin D3) 1,000 unit DAILY PO 03/22/21 09:00 03/30/21 05:48 Hydroxyzine HCl (Atarax Oral Syrup) 10 mg TID PO 03/21/21 21:00 03/21/21 21:55 DC Ibuprofen (Motrin) 200 mg PRN Q6HRS PRN PO INFLAMMATION 03/21/21 21:15 03/24/21 14:54 DC Lorazepam (Ativan) 0.5 mg PRN Q6HRS PRN PO ANXIETY 03/21/21 20:00 03/23/21 14:59 DC 03/23/21 14:03 Melatonin (Melatonin) 3 mg QHS PO 03/21/21 21:00 03/30/21 19:52 Fish Oil (Fish Oil) 1,000 mg DAILY PO 03/22/21 09:00 03/30/21 05:47 Oxybutynin Chloride (Ditropan) 5 mg DAILY PO 03/22/21 09:00 03/30/21 05:47 Polymyxin/ Trimethoprim Sulfate (Polytrim) 1 drop TID OU 03/21/21 21:00 03/23/21 19:59 DC Cyanocobalamin (Vitamin B-12) 1,000 mcg DAILY PO 03/22/21 09:00 03/30/21 05:48 Multivitamins/ Calcium (Thera-M Plus) 1 tab DAILY PO 03/22/21 09:00 03/30/21 05:48 Multivitamins/ Minerals (I-Leland) 1 tab DAILY PO 03/22/21 09:00 03/30/21 05:47 Non-Formulary Medication ([Vitamin D + [place] 3] ) 1 tab DAILY PO 03/22/21 09:00 03/21/21 21:16 DC Hydroxyzine HCl (Atarax) 10 mg TID PO 03/22/21 09:00 03/26/21 16:04 DC 03/26/21 12:07 Acetaminophen (Tylenol) 650 mg PRN Q6HRS PRN PO MILD PAIN / TEMP > 100.3'F 03/22/21 00:30 UNV Multi-Ingredient Ointment (Analgesic [place]) 1 sindi PRN QID PRN TP MUSCLE PAIN 03/22/21 00:30 Al Hydroxide/Mg Hydroxide (Mylanta Plus Xs) 15 ml PRN AFTMEALHC PRN PO DYSPEPSIA 03/22/21 00:30 Magnesium Hydroxide (Milk Of Magnesia) 2,400 mg PRN QHS PRN PO CONSTIPATION 03/22/21 00:30 03/27/21 12:39 Olanzapine (ZyPREXA ZYDIS) 2.5 mg PRN Q2HR PRN PO PSYCHOSIS 03/23/21 15:00 03/29/21 20:44 Sertraline HCl (Zoloft) 25 mg DAILY PO 03/24/21 09:00 03/27/21 08:00 DC 03/26/21 08:34 Sertraline HCl (Zoloft) 50 mg DAILY PO 03/27/21 09:00 03/30/21 05:48 Divalproex Sodium (Depakote) 125 mg DAILY PO 03/25/21 09:00 03/28/21 17:53 DC 03/28/21 08:18 Divalproex Sodium (Depakote Sprinkles) 125 mg DAILYWSUP PO 03/24/21 17:00 03/28/21 17:53 DC 03/28/21 17:29 Medroxyprogesterone Acetate (Provera) 2.5 mg DAILY PO 03/26/21 09:00 03/29/21 15:34 DC 03/29/21 08:31 Hydroxyzine HCl (Atarax) 10 mg BID PO 03/26/21 21:00 03/28/21 23:55 DC 03/28/21 20:45 Quetiapine Fumarate (SEROquel) 12.5 mg 0900,1700 PO 03/27/21 09:00 03/30/21 17:37 Hydroxyzine HCl (Atarax) 10 mg DAILY PO 03/29/21 09:00 03/31/21 09:01 03/30/21 05:47 Divalproex Sodium (Depakote Sprinkles) 250 mg DAILYWSUP PO 03/29/21 17:00 03/30/21 17:35 Divalproex Sodium (Depakote) 250 mg DAILY PO 03/29/21 09:00 03/30/21 05:47 Medroxyprogesterone Acetate (Provera) 5 mg DAILY PO 03/30/21 09:00 03/30/21 05:48 Current Medications Medications (Trade) Dose Ordered Sig/Eve Route PRN Reason Start Time Stop Time Status Last Admin Dose Admin Medroxyprogesterone Acetate (Provera) 5 mg DAILY PO 03/30/21 09:00 03/30/21 05:48 I have reviewed the current psychotropics carefully including drug interactions. Risk benefit ratio favors no change other than as noted in my dictated progress note. 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
--- NOTE | 2021-03-30 23:29 | NUR ---
Pt sitting quietly in the day room when approached. Pt calm, confused, and disorganized. Pt cooperative with assessment and compliant with medications administered whole. No agitation, aggression, or sexually inappropriate behaviors noted thus far this shift.
[2021-03-31 05:52] VITALS: BP 133/71
--- NOTE | 2021-03-31 06:35 | PDOC ---
Exam Note: Fermin Note: This note is a late entry for 03/30/2021 covers elements not covered in my initial note. Subjective: The patient was seen individually in the evening of 03/30/2021 with Pat CAICEDO, discussed and reviewed the chart. He slept in during breakfast this morning. He slept 6-1/2 hours previous night. He was walking with a shuffling gait, leaning forward. He seemed to make sexually inappropriate comment. We will observe him carefully for the unsteady gait. We will check valproic acid level in the morning. He was carrying 2 brown bags states he cleaned up his room. Review of Systems: No CV, , pulmonary, eye, ENT system symptoms on review. Reliability poor. Mental Status Exam: The patient is just oriented to himself. Insight and judgment, recent and remote memory, attention and concentration, fund of knowle dge is poor consistent with his diagnoses. Laboratory Data: Reviewed. Impression: Major neurocognitive disorder Alzheimer vascular with delusion, depression, behavioral disturbance. Anxiety disorder unspecified. Impulse control disorder unspecified. Plan: Maintain rest of the psychotropics unchanged. Check valproic acid level in the morning. Depakote is being increased to reach therapeutic level. Assessment: Vital Signs/I&O: Vital Signs Date Time Temp Pulse Resp B/P (MAP) Pulse Ox O2 Delivery O2 Flow Rate FiO2 03/31/21 05:52 98.4 65 18 133/71 (91) 98 03/28/21 16:03 Room Air I & O 03/30/21 03/30/21 03/31/21 14:59 22:59 06:59 Intake Total 240 ml 600 ml Balance 240 ml 600 ml Current Medications: Meds: Current Medications Medications (Trade) Dose Ordered Sig/Eve Route PRN Reason Start Time Stop Time Status Last Admin Dose Admin Acetaminophen (Tylenol) 650 mg PRN Q6HRS PRN PO PAIN/FEVER 03/21/21 20:00 03/24/21 20:51 Carvedilol (Coreg) 3.125 mg BIDWMEALS PO 03/22/21 08:00 03/30/21 17:34 Celecoxib (CeleBREX) 50 mg BID PO 03/21/21 21:00 03/23/21 19:59 DC Vitamin D (Vitamin D3) 1,000 unit DAILY PO 03/22/21 09:00 03/30/21 05:48 Hydroxyzine HCl (Atarax Oral Syrup) 10 mg TID PO 03/21/21 21:00 03/21/21 21:55 DC Ibuprofen (Motrin) 200 mg PRN Q6HRS PRN PO INFLAMMATION 03/21/21 21:15 03/24/21 14:54 DC Lorazepam (Ativan) 0.5 mg PRN Q6HRS PRN PO ANXIETY 03/21/21 20:00 03/23/21 14:59 DC 03/23/21 14:03 Melatonin (Melatonin) 3 mg QHS PO 03/21/21 21:00 03/30/21 19:52 Fish Oil (Fish Oil) 1,000 mg DAILY PO 03/22/21 09:00 03/30/21 05:47 Oxybutynin Chloride (Ditropan) 5 mg DAILY PO 03/22/21 09:00 03/30/21 05:47 Polymyxin/ Trimethoprim Sulfate (Polytrim) 1 drop TID OU 03/21/21 21:00 03/23/21 19:59 DC Cyanocobalamin (Vitamin B-12) 1,000 mcg DAILY PO 03/22/21 09:00 03/30/21 05:48 Multivitamins/ Calcium (Thera-M Plus) 1 tab DAILY PO 03/22/21 09:00 03/30/21 05:48 Multivitamins/ Minerals (I-Leland) 1 tab DAILY PO 03/22/21 09:00 03/30/21 05:47 Non-Formulary Medication ([Vitamin D + [place] 3] ) 1 tab DAILY PO 03/22/21 09:00 03/21/21 21:16 DC Hydroxyzine HCl (Atarax) 10 mg TID PO 03/22/21 09:00 03/26/21 16:04 DC 03/26/21 12:07 Acetaminophen (Tylenol) 650 mg PRN Q6HRS PRN PO MILD PAIN / TEMP > 100.3'F 03/22/21 00:30 UNV Multi-Ingredient Ointment (Analgesic [place]) 1 sindi PRN QID PRN TP MUSCLE PAIN 03/22/21 00:30 Al Hydroxide/Mg Hydroxide (Mylanta Plus Xs) 15 ml PRN AFTMEALHC PRN PO DYSPEPSIA 03/22/21 00:30 Magnesium Hydroxide (Milk Of Magnesia) 2,400 mg PRN QHS PRN PO CONSTIPATION 03/22/21 00:30 03/27/21 12:39 Olanzapine (ZyPREXA ZYDIS) 2.5 mg PRN Q2HR PRN PO PSYCHOSIS 03/23/21 15:00 03/29/21 20:44 Sertraline HCl (Zoloft) 25 mg DAILY PO 03/24/21 09:00 03/27/21 08:00 DC 03/26/21 08:34 Sertraline HCl (Zoloft) 50 mg DAILY PO 03/27/21 09:00 03/30/21 05:48 Divalproex Sodium (Depakote) 125 mg DAILY PO 03/25/21 09:00 03/28/21 17:53 DC 03/28/21 08:18 Divalproex Sodium (Depakote Sprinkles) 125 mg DAILYWSUP PO 03/24/21 17:00 03/28/21 17:53 DC 03/28/21 17:29 Medroxyprogesterone Acetate (Provera) 2.5 mg DAILY PO 03/26/21 09:00 03/29/21 15:34 DC 03/29/21 08:31 Hydroxyzine HCl (Atarax) 10 mg BID PO 03/26/21 21:00 03/28/21 23:55 DC 03/28/21 20:45 Quetiapine Fumarate (SEROquel) 12.5 mg 0900,1700 PO 03/27/21 09:00 03/30/21 17:37 Hydroxyzine HCl (Atarax) 10 mg DAILY PO 03/29/21 09:00 03/31/21 09:01 03/30/21 05:47 Divalproex Sodium (Depakote Sprinkles) 250 mg DAILYWSUP PO 03/29/21 17:00 03/30/21 17:35 Divalproex Sodium (Depakote) 250 mg DAILY PO 03/29/21 09:00 03/30/21 05:47 Medroxyprogesterone Acetate (Provera) 5 mg DAILY PO 03/30/21 09:00 03/30/21 05:48 Current Medications Medications (Trade) Dose Ordered Sig/Eve Route PRN Reason Start Time Stop Time Status Last Admin Dose Admin Medroxyprogesterone Acetate (Provera) 5 mg DAILY PO 03/30/21 09:00 03/30/21 05:48 I have reviewed the current psychotropics carefully including drug interactions. Risk benefit ratio favors no change other than as noted in my dictated progress note. Diagnosis: Problems: (1) Impulse control disorder, unspecified (2) Anxiety disorder, unspecified (3) Dementia, vascular, with depression (4) Dementia, vascular, with delusions (5) Dementia in Alzheimer's disease with depression (6) Dementia in Alzheimer's disease with delusions (7) Dementia of the Alzheimer's type with early onset with behavioral disturbance (8) Major neurocognitive disorder ALFREDO HARDIN MD Mar 31, 2021 06:35
[2021-03-31] MEDS: hydrOXYzine HCL 10 MG TABLET PO SCH (08:29)
[2021-03-31] MEDS: CHOLECALCIFEROL (VITAMIN D3) 1,000 UNIT TABLET PO SCH (08:29)
[2021-03-31] MEDS: QUEtiapine 25 MG TABLET. PO SCH ×2 (08:30→17:44)
[2021-03-31] MEDS: medroxyPROGESTERone 5 MG TABLET PO SCH (08:30)
[2021-03-31] MEDS: CARVEDILOL 3.125 MG TABLET PO SCH ×2 (08:30→17:44)
[2021-03-31] MEDS: SERTRALINE 50 MG TABLET. PO SCH (08:34)
[2021-03-31] MEDS: MULTIVITAMIN with MINERAL TABLET. PO SCH (08:34)
[2021-03-31] MEDS: CYANOCOBALAMIN (VITAMIN B-12) 1,000 MCG TABLET. PO SCH (08:34)
[2021-03-31] MEDS: DIVALPROEX SODIUM 250 MG TABLET.DR. PO SCH ×2 (08:34→17:44)
[2021-03-31] MEDS: OMEGA-3 FATTY ACIDS/FISH OIL 1,000 MG CAPSULE. PO SCH (08:36)
[2021-03-31] MEDS: OXYBUTYNIN CHLORIDE 5 MG TABLET PO SCH (08:36)
[2021-03-31] MEDS: MULTIVITAMIN I-VITE TABLET. PO SCH (08:36)
[2021-03-31 10:46] LABS: HEMATOCRIT 33.2 % (39.0-53.0); HEMOGLOBIN 10.9 g/dL (13.0-17.5); RED BLOOD COUNT 3.49 x10^6/uL (4.30-5.70); RED CELL DISTRIBUTION WIDTH 13.2 % (11.5-14.5); WHITE BLOOD COUNT 5.2 x10^3/uL (4.0-11.0)
[2021-03-31 11:38] LABS: ALBUMIN 3.4 g/dL (3.4-5.0); ALK PHOS 90 U/L (46-116); ALT (SGPT) 28 U/L (16-63); ANION GAP 12 (6-14); AST (SGOT) 29 U/L (15-37); BLOOD UREA NITROGEN 59 mg/dL (8-26); BUN/CREATININE RATIO 21 (6-20); CALCIUM 8.6 mg/dL (8.5-10.1); CARBON DIOXIDE 25 mmol/L (21-32); CHLORIDE 107 mmol/L (98-107); CREATININE 2.8 mg/dL (0.7-1.3); GFR 21.7; GLUCOSE 96 mg/dL (70-99); POTASSIUM 4.5 mmol/L (3.5-5.1); SODIUM 144 mmol/L (136-145); TOTAL BILIRUBIN 0.4 mg/dL (0.2-1.0); TOTAL PROTEIN 6.7 g/dL (6.4-8.2)
[2021-03-31 11:42] LABS: VAL ACID 19 mcg/mL (50-100)
--- NOTE | 2021-03-31 11:46 | NUR ---
THOMAS emailed Jim, pt son/DPOA, re: update on pt. THOMAS and Jim discussed having him participate in treatment team on Wednesday as THOMAS forgot to call him this week. Jim did ask for a copy of pt medication list to be emailed to him so he can keep track. THOMAS will follow up on getting a copy over to him.
--- NOTE | 2021-03-31 12:59 | NUR ---
WEEKLY ACTIVITY THERAPY NOTE Date of Admission:03/21/21 Date of AT Assessment: 03/24 Precipitating behaviors that initiated intake and admission: Aggressive towards staff, combative, reports SI with no plan, thinks he has been kidnapped and that people are going to kill him. Goal aimed: increase stress management and relaxation skills Initial Goal: pt will participate in at least five individual or group Activity Therapy sessions before discharge. Weekly progress towards goal: on track (03/26:snacks and exercise, 03/26: songs and states, 03/28:olympic ceremony democrat) Group participation level: 3 min Weekly highlights: songs and states group Wednesday Behaviors observed: disagreement with staff Wednesday, wandering Plan: no change to goal Beneficial adaptations: direct prompting
--- NOTE | 2021-03-31 14:00 | NUR ---
Treatment team note: Pt is eating between 75-100% of meals and sleeping on average 6 hours per night; it was noted that pt slept 7 hours last night. It is also observed that pt needs to be encouraged to eat; staff do not believe that pt does not have an appetite, but that he gets easily distracted and needs to be redirected to what he was doing. Pt is calm, cooperative and mostly pleasant. Pt has not had physical sexually inappropriate behavior; however, did ask a TH[employer] RAIL INST[employer]ER for a kiss after helping her perform ADL's. Pt has attended three groups this last week with minimal participation. VPA was drawn on 03/31 and came back still low at 19; pt Depakote will be increased to 500mg BID with labs and levels in three days. Pt to return to [facility] once stable.
--- NOTE | 2021-03-31 14:14 | NUR ---
Patient alert oriented to self. Patient is disorganized and wanders. VPA level is 19 received new order for Depakote 500 mg BID. CBC, CMP and Valporic acid level to be drawn in 3 days. Family has been made aware. Appetite is adequate. No inappropriate behavior towards staff or patients. Socializes with peers and staff.
[2021-03-31 15:45] VITALS: BP 102/63
[2021-03-31] MEDS: MELATONIN 3 MG TABLET PO SCH (20:17)
--- NOTE | 2021-03-31 22:06 | NUR ---
Pt sitting quietly in the day room when approached. Pt calm, pleasantly confused, and disorganized. Pt cooperative with assessment and compliant with medications administered whole. No agitation, aggression, or SIB noted thus far this shift.
--- NOTE | 2021-03-31 22:16 | PDOC ---
Exam Note: Fermin Note: Please also refer to the separate dictated note~for this date of service dictated separately.~Patient seen individually. Discussed the patient with Nursing staff reviewed the chart.~Reviewed interim history and current functioning. Reviewed vital signs,~Labs/ Radiology~and current medications noted below. Continue current treatment with the changes noted in the dictated addendum note Assessment: Vital Signs/I&O: Vital Signs Date Time Temp Pulse Resp B/P (MAP) Pulse Ox O2 Delivery O2 Flow Rate FiO2 03/31/21 17:44 64 102/63 03/31/21 15:45 98.6 18 97 03/28/21 16:03 Room Air I & O 03/30/21 03/30/21 03/31/21 15:00 23:00 07:00 Intake Total 240 ml 600 ml Balance 240 ml 600 ml Labs: Laboratory Tests Test 03/31/21 10:10 White Blood Count 5.2 x10^3/uL (4.0-11.0) Red Blood Count 3.49 x10^6/uL (4.30-5.70) L Hemoglobin 10.9 g/dL (13.0-17.5) L Hematocrit 33.2 % (39.0-53.0) L Mean Corpuscular Volume 95 fL (79-100) Mean Corpuscular Hemoglobin 31 pg (25-35) Mean Corpuscular Hemoglobin Concent 33 g/dL (31-37) Red Cell Distribution Width 13.2 % (11.5-14.5) Platelet Count 190 x10^3/uL (140-400) Sodium Level 144 mmol/L (136-145) Potassium Level 4.5 mmol/L (3.5-5.1) Chloride Level 107 mmol/L (98-107) Carbon Dioxide Level 25 mmol/L (21-32) Anion Gap 12 (6-14) Blood Urea Nitrogen 59 mg/dL (8-26) H Creatinine 2.8 mg/dL (0.7-1.3) H Estimated GFR (Cockcroft-Gault) 21.7 BUN/Creatinine Ratio 21 (6-20) H Glucose Level 96 mg/dL (70-99) Calcium Level 8.6 mg/dL (8.5-10.1) Total Bilirubin 0.4 mg/dL (0.2-1.0) Aspartate Amino Transferase (AST) 29 U/L (15-37) Alanine Aminotransferase (ALT) 28 U/L (16-63) Alkaline Phosphatase 90 U/L (46-116) Total Protein 6.7 g/dL (6.4-8.2) Albumin 3.4 g/dL (3.4-5.0) Albumin/Globulin Ratio 1.0 (1.0-1.7) Valproic Acid Level 19 mcg/mL (50-100) L Valproic Acid Last Dose Date 03/30/21 Valproic Acid Last Dose Time 1700 Current Medications: Meds: Laboratory Tests Test 03/31/21 10:10 White Blood Count 5.2 x10^3/uL Red Blood Count 3.49 x10^6/uL Hemoglobin 10.9 g/dL Hematocrit 33.2 % Mean Corpuscular Volume 95 fL Mean Corpuscular Hemoglobin 31 pg Mean Corpuscular Hemoglobin Concent 33 g/dL Red Cell Distribution Width 13.2 % Platelet Count 190 x10^3/uL Sodium Level 144 mmol/L Potassium Level 4.5 mmol/L Chloride Level 107 mmol/L Carbon Dioxide Level 25 mmol/L Anion Gap 12 Blood Urea Nitrogen 59 mg/dL Creatinine 2.8 mg/dL Estimated GFR (Cockcroft-Gault) 21.7 BUN/Creatinine Ratio 21 Glucose Level 96 mg/dL Calcium Level 8.6 mg/dL Total Bilirubin 0.4 mg/dL Aspartate Amino Transf (AST/SGOT) 29 U/L Alanine Aminotransferase (ALT/SGPT) 28 U/L Alkaline Phosphatase 90 U/L Total Protein 6.7 g/dL Albumin 3.4 g/dL Albumin/Globulin Ratio 1.0 Valproic Acid (Depakene) Level 19 mcg/mL Valproic Acid Last Dose Date 03/30/21 Valproic Acid Last Dose Time 1700 Current Medications Medications (Trade) Dose Ordered Sig/Eve Route PRN Reason Start Time Stop Time Status Last Admin Dose Admin Acetaminophen (Tylenol) 650 mg PRN Q6HRS PRN PO PAIN/FEVER 03/21/21 20:00 03/24/21 20:51 Carvedilol (Coreg) 3.125 mg BIDWMEALS PO 03/22/21 08:00 03/31/21 17:44 Celecoxib (CeleBREX) 50 mg BID PO 03/21/21 21:00 03/23/21 19:59 DC Vitamin D (Vitamin D3) 1,000 unit DAILY PO 03/22/21 09:00 03/31/21 08:29 Hydroxyzine HCl (Atarax Oral Syrup) 10 mg TID PO 03/21/21 21:00 03/21/21 21:55 DC Ibuprofen (Motrin) 200 mg PRN Q6HRS PRN PO INFLAMMATION 03/21/21 21:15 03/24/21 14:54 DC Lorazepam (Ativan) 0.5 mg PRN Q6HRS PRN PO ANXIETY 03/21/21 20:00 03/23/21 14:59 DC 03/23/21 14:03 Melatonin (Melatonin) 3 mg QHS PO 03/21/21 21:00 03/31/21 20:17 Fish Oil (Fish Oil) 1,000 mg DAILY PO 03/22/21 09:00 03/31/21 08:36 Oxybutynin Chloride (Ditropan) 5 mg DAILY PO 03/22/21 09:00 03/31/21 08:36 Polymyxin/ Trimethoprim Sulfate (Polytrim) 1 drop TID OU 03/21/21 21:00 03/23/21 19:59 DC Cyanocobalamin (Vitamin B-12) 1,000 mcg DAILY PO 03/22/21 09:00 03/31/21 08:34 Multivitamins/ Calcium (Thera-M Plus) 1 tab DAILY PO 03/22/21 09:00 03/31/21 08:34 Multivitamins/ Minerals (I-[place]eland) 1 tab DAILY PO 03/22/21 09:00 03/31/21 08:36 Non-Formulary Medication ([Vitamin D + [place] 3] ) 1 tab DAILY PO 03/22/21 09:00 03/21/21 21:16 DC Hydroxyzine HCl (Atarax) 10 mg TID PO 03/22/21 09:00 03/26/21 16:04 DC 03/26/21 12:07 Acetaminophen (Tylenol) 650 mg PRN Q6HRS PRN PO MILD PAIN / TEMP > 100.3'F 03/22/21 00:30 UNV Multi-Ingredient Ointment (Analgesic [place]) 1 sindi PRN QID PRN TP MUSCLE PAIN 03/22/21 00:30 Al Hydroxide/Mg Hydroxide (Mylanta Plus Xs) 15 ml PRN AFTMEALHC PRN PO DYSPEPSIA 03/22/21 00:30 Magnesium Hydroxide (Milk Of Magnesia) 2,400 mg PRN QHS PRN PO CONSTIPATION 03/22/21 00:30 03/27/21 12:39 Olanzapine (ZyPREXA ZYDIS) 2.5 mg PRN Q2HR PRN PO PSYCHOSIS 03/23/21 15:00 03/29/21 20:44 Sertraline HCl (Zoloft) 25 mg DAILY PO 03/24/21 09:00 03/27/21 08:00 DC 03/26/21 08:34 Sertraline HCl (Zoloft) 50 mg DAILY PO 03/27/21 09:00 03/31/21 08:34 Divalproex Sodium (Depakote) 125 mg DAILY PO 03/25/21 09:00 03/28/21 17:53 DC 03/28/21 08:18 Divalproex Sodium (Depakote Sprinkles) 125 mg DAILYWSUP PO 03/24/21 17:00 03/28/21 17:53 DC 03/28/21 17:29 Medroxyprogesterone Acetate (Provera) 2.5 mg DAILY PO 03/26/21 09:00 03/29/21 15:34 DC 03/29/21 08:31 Hydroxyzine HCl (Atarax) 10 mg BID PO 03/26/21 21:00 03/28/21 23:55 DC 03/28/21 20:45 Quetiapine Fumarate (SEROquel) 12.5 mg 0900,1700 PO 03/27/21 09:00 03/31/21 17:44 Hydroxyzine HCl (Atarax) 10 mg DAILY PO 03/29/21 09:00 03/31/21 09:01 DC 03/31/21 08:29 Divalproex Sodium (Depakote Sprinkles) 250 mg DAILYWSUP PO 03/29/21 17:00 03/31/21 13:11 DC 03/30/21 17:35 Divalproex Sodium (Depakote) 250 mg DAILY PO 03/29/21 09:00 03/31/21 12:56 DC 03/31/21 08:34 Medroxyprogesterone Acetate (Provera) 5 mg DAILY PO 03/30/21 09:00 03/31/21 08:30 Divalproex Sodium (Depakote) 500 mg 0900,1700 PO 03/31/21 17:00 03/31/21 17:44 Current Medications Medications (Trade) Dose Ordered Sig/Eve Route PRN Reason Start Time Stop Time Status Last Admin Dose Admin Divalproex Sodium (Depakote) 500 mg 0900,1700 PO 03/31/21 17:00 03/31/21 17:44 I have reviewed the current psychotropics carefully including drug interactions. Risk benefit ratio favors no change other than as noted in my dictated progress note. Diagnosis: Problems: (1) Impulse control disorder, unspecified (2) Anxiety disorder, unspecified (3) Dementia, vascular, with depression (4) Dementia, vascular, with delusions (5) Dementia in Alzheimer's disease with depression (6) Dementia in Alzheimer's disease with delusions (7) Dementia of the Alzheimer's type with early onset with behavioral disturbance (8) Major neurocognitive disorder ALFREDO HARDIN MD Mar 31, 2021 22:16
[2021-04-01 05:55] VITALS: BP 119/63
[2021-04-01] MEDS: medroxyPROGESTERone 5 MG TABLET PO SCH (08:35)
[2021-04-01] MEDS: CHOLECALCIFEROL (VITAMIN D3) 1,000 UNIT TABLET PO SCH (08:35)
[2021-04-01] MEDS: MULTIVITAMIN with MINERAL TABLET. PO SCH (08:35)
[2021-04-01] MEDS: MULTIVITAMIN I-VITE TABLET. PO SCH (08:35)
[2021-04-01] MEDS: QUEtiapine 25 MG TABLET. PO SCH ×2 (08:35→16:40)
[2021-04-01] MEDS: CARVEDILOL 3.125 MG TABLET PO SCH ×2 (08:36→16:44)
[2021-04-01] MEDS: OMEGA-3 FATTY ACIDS/FISH OIL 1,000 MG CAPSULE. PO SCH (08:36)
[2021-04-01] MEDS: OXYBUTYNIN CHLORIDE 5 MG TABLET PO SCH (08:36)
[2021-04-01] MEDS: DIVALPROEX SODIUM 250 MG TABLET.DR. PO SCH ×2 (08:36→16:40)
[2021-04-01] MEDS: SERTRALINE 50 MG TABLET. PO SCH (08:36)
[2021-04-01] MEDS: CYANOCOBALAMIN (VITAMIN B-12) 1,000 MCG TABLET. PO SCH (08:36)
--- NOTE | 2021-04-01 12:40 | NUR ---
THOMAS completed continued review on 03/31 and left message on the voicemail of Maura with [facility]. THOMAS received a voicemail and fax confirmation for continued stay from 03/31 through 04/03 with an update on Wednesday 04/04. Authorization number [id number]
[2021-04-01 15:31] VITALS: BP 128/78
--- NOTE | 2021-04-01 18:23 | NUR ---
Patient has been calm, compliant, and pleasantly confused throughout this shift. He has been wandering at times and was kissing another patient this morning. Will continue to monitor and report to oncoming shift.
[2021-04-01] MEDS: MELATONIN 3 MG TABLET PO SCH (20:13)
--- NOTE | 2021-04-01 21:45 | NUR ---
Pt withdrawn to his room, lying in bed awake when approached. Pt calm, pleasantly confused, and disorganized. Pt cooperative with assessment and compliant with medications administered whole. No agitation, aggression, or SIB noted thus far this shift.
--- NOTE | 2021-04-01 22:14 | PDOC ---
Exam Note: Fermin Note: Please also refer to the separate dictated note~for this date of service dictated separately.~Patient seen individually. Discussed the patient with Nursing staff reviewed the chart.~Reviewed interim history and current functioning. Reviewed vital signs,~Labs/ Radiology~and current medications noted below. Continue current treatment with the changes noted in the dictated addendum note Assessment: Vital Signs/I&O: Vital Signs Date Time Temp Pulse Resp B/P (MAP) Pulse Ox O2 Delivery O2 Flow Rate FiO2 04/01/21 16:44 81 128/78 04/01/21 15:31 97.4 16 95 03/28/21 16:03 Room Air I & O 03/31/21 03/31/21 04/01/21 14:59 22:59 06:59 Intake Total 600 ml 480 ml Balance 600 ml 480 ml Current Medications: Meds: Current Medications Medications (Trade) Dose Ordered Sig/Eve Route PRN Reason Start Time Stop Time Status Last Admin Dose Admin Acetaminophen (Tylenol) 650 mg PRN Q6HRS PRN PO PAIN/FEVER 03/21/21 20:00 03/24/21 20:51 Carvedilol (Coreg) 3.125 mg BIDWMEALS PO 03/22/21 08:00 04/01/21 16:44 Celecoxib (CeleBREX) 50 mg BID PO 03/21/21 21:00 03/23/21 19:59 DC Vitamin D (Vitamin D3) 1,000 unit DAILY PO 03/22/21 09:00 04/01/21 08:35 Hydroxyzine HCl (Atarax Oral Syrup) 10 mg TID PO 03/21/21 21:00 03/21/21 21:55 DC Ibuprofen (Motrin) 200 mg PRN Q6HRS PRN PO INFLAMMATION 03/21/21 21:15 03/24/21 14:54 DC Lorazepam (Ativan) 0.5 mg PRN Q6HRS PRN PO ANXIETY 03/21/21 20:00 03/23/21 14:59 DC 03/23/21 14:03 Melatonin (Melatonin) 3 mg QHS PO 03/21/21 21:00 04/01/21 20:13 Fish Oil (Fish Oil) 1,000 mg DAILY PO 03/22/21 09:00 04/01/21 08:36 Oxybutynin Chloride (Ditropan) 5 mg DAILY PO 03/22/21 09:00 04/01/21 08:36 Polymyxin/ Trimethoprim Sulfate (Polytrim) 1 drop TID OU 03/21/21 21:00 03/23/21 19:59 DC Cyanocobalamin (Vitamin B-12) 1,000 mcg DAILY PO 03/22/21 09:00 04/01/21 08:36 Multivitamins/ Calcium (Thera-M Plus) 1 tab DAILY PO 03/22/21 09:00 04/01/21 08:35 Multivitamins/ Minerals (I-[place]) 1 tab DAILY PO 03/22/21 09:00 04/01/21 08:35 Non-Formulary Medication ([Vitamin D + [place] 3] ) 1 tab DAILY PO 03/22/21 09:00 03/21/21 21:16 DC Hydroxyzine HCl (Atarax) 10 mg TID PO 03/22/21 09:00 03/26/21 16:04 DC 03/26/21 12:07 Acetaminophen (Tylenol) 650 mg PRN Q6HRS PRN PO MILD PAIN / TEMP > 100.3'F 03/22/21 00:30 UNV Multi-Ingredient Ointment (Analgesic [place]) 1 sindi PRN QID PRN TP MUSCLE PAIN 03/22/21 00:30 Al Hydroxide/Mg Hydroxide (Mylanta Plus Xs) 15 ml PRN AFTMEALHC PRN PO DYSPEPSIA 03/22/21 00:30 Magnesium Hydroxide (Milk Of Magnesia) 2,400 mg PRN QHS PRN PO CONSTIPATION 03/22/21 00:30 03/27/21 12:39 Olanzapine (ZyPREXA ZYDIS) 2.5 mg PRN Q2HR PRN PO PSYCHOSIS 03/23/21 15:00 03/29/21 20:44 Sertraline HCl (Zoloft) 25 mg DAILY PO 03/24/21 09:00 03/27/21 08:00 DC 03/26/21 08:34 Sertraline HCl (Zoloft) 50 mg DAILY PO 03/27/21 09:00 04/01/21 08:36 Divalproex Sodium (Depakote) 125 mg DAILY PO 03/25/21 09:00 03/28/21 17:53 DC 03/28/21 08:18 Divalproex Sodium (Depakote Sprinkles) 125 mg DAILYWSUP PO 03/24/21 17:00 03/28/21 17:53 DC 03/28/21 17:29 Medroxyprogesterone Acetate (Provera) 2.5 mg DAILY PO 03/26/21 09:00 03/29/21 15:34 DC 03/29/21 08:31 Hydroxyzine HCl (Atarax) 10 mg BID PO 03/26/21 21:00 03/28/21 23:55 DC 03/28/21 20:45 Quetiapine Fumarate (SEROquel) 12.5 mg 0900,1700 PO 03/27/21 09:00 04/01/21 16:40 Hydroxyzine HCl (Atarax) 10 mg DAILY PO 03/29/21 09:00 03/31/21 09:01 DC 03/31/21 08:29 Divalproex Sodium (Depakote Sprinkles) 250 mg DAILYWSUP PO 03/29/21 17:00 03/31/21 13:11 DC 03/30/21 17:35 Divalproex Sodium (Depakote) 250 mg DAILY PO 03/29/21 09:00 03/31/21 12:56 DC 03/31/21 08:34 Medroxyprogesterone Acetate (Provera) 5 mg DAILY PO 03/30/21 09:00 04/01/21 08:35 Divalproex Sodium (Depakote) 500 mg 0900,1700 PO 03/31/21 17:00 04/01/21 16:40 I have reviewed the current psychotropics carefully including drug interactions. Risk benefit ratio favors no change other than as noted in my dictated progress note. 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
[2021-04-02 05:46] VITALS: BP 120/62
[2021-04-02] MEDS: CHOLECALCIFEROL (VITAMIN D3) 1,000 UNIT TABLET PO SCH (08:21)
[2021-04-02] MEDS: OMEGA-3 FATTY ACIDS/FISH OIL 1,000 MG CAPSULE. PO SCH (08:21)
[2021-04-02] MEDS: OXYBUTYNIN CHLORIDE 5 MG TABLET PO SCH (08:22)
[2021-04-02] MEDS: CARVEDILOL 3.125 MG TABLET PO SCH ×2 (08:22→17:30)
[2021-04-02] MEDS: MULTIVITAMIN I-VITE TABLET. PO SCH (08:22)
[2021-04-02] MEDS: CYANOCOBALAMIN (VITAMIN B-12) 1,000 MCG TABLET. PO SCH (08:22)
[2021-04-02] MEDS: medroxyPROGESTERone 5 MG TABLET PO SCH (08:22)
[2021-04-02] MEDS: SERTRALINE 50 MG TABLET. PO SCH (08:22)
[2021-04-02] MEDS: MULTIVITAMIN with MINERAL TABLET. PO SCH (08:22)
[2021-04-02] MEDS: DIVALPROEX SODIUM 250 MG TABLET.DR. PO SCH ×2 (08:23→17:31)
[2021-04-02] MEDS: QUEtiapine 25 MG TABLET. PO SCH ×2 (08:23→17:29)
--- NOTE | 2021-04-02 09:06 | PDOC ---
Exam Note: Fermin Note: This note is a late entry for 03/31/2021 covers elements not covered in my initial note. Subjective: The patient was seen individually in the morning of 03/31/2021 for a treatment team meeting with Virgen Muñiz, Sue Jones (social worker clinical), [place], activity therapy and Pat CAICEDO, discussed and reviewed the chart. He slept 7 hours previous night. He has attended 3 groups in the past one week. He remains confused, inappropriate, sexual behaviors yesterday but none last evening or today on 03/31. Valproic acid level on 03/31 is 19 on Depakote 250 mg twice a day. We will increase to 500 mg twice a day. Check CBC, CMP, valproic acid level in 3 days. Review of Systems: No CV, , pulmonary, eye, ENT system symptoms on review. Reliability poor. Mental Status Exam: The patient is just oriented to himself. Insight and judgment, recent and remote memory, attention and concentration, fund of knowledge is poor consistent with his diagnoses. Laboratory Data: Reviewed. Impression: Major neurocognitive disorder Alzheimer vascular with delusion, d epression, behavioral disturbance. Anxiety disorder unspecified. Impulse control disorder unspecified. Plan: Maintain rest of the psychotropics unchanged. Valproic acid level on 03/31 is 19 on Depakote 250 mg twice a day. We will increase to 500 mg twice a day. Check CBC, CMP, valproic acid level in 3 days. Maintain Provera 5 mg a day. Assessment: Vital Signs/I&O: Vital Signs Date Time Temp Pulse Resp B/P (MAP) Pulse Ox O2 Delivery O2 Flow Rate FiO2 04/02/21 08:22 70 120/62 04/02/21 05:46 98.8 18 97 Room Air I & O 04/01/21 04/01/21 04/02/21 15:00 23:00 07:00 Intake Total 480 ml 600 ml Balance 480 ml 600 ml Current Medications: Meds: Current Medications Medications (Trade) Dose Ordered Sig/Eve Route PRN Reason Start Time Stop Time Status Last Admin Dose Admin Acetaminophen (Tylenol) 650 mg PRN Q6HRS PRN PO PAIN/FEVER 03/21/21 20:00 03/24/21 20:51 Carvedilol (Coreg) 3.125 mg BIDWMEALS PO 03/22/21 08:00 04/02/21 08:22 Celecoxib (CeleBREX) 50 mg BID PO 03/21/21 21:00 03/23/21 19:59 DC Vitamin D (Vitamin D3) 1,000 unit DAILY PO 03/22/21 09:00 04/02/21 08:21 Hydroxyzine HCl (Atarax Oral Syrup) 10 mg TID PO 03/21/21 21:00 03/21/21 21:55 DC Ibuprofen (Motrin) 200 mg PRN Q6HRS PRN PO INFLAMMATION 03/21/21 21:15 03/24/21 14:54 DC Lorazepam (Ativan) 0.5 mg PRN Q6HRS PRN PO ANXIETY 03/21/21 20:00 03/23/21 14:59 DC 03/23/21 14:03 Melatonin (Melatonin) 3 mg QHS PO 03/21/21 21:00 04/01/21 20:13 Fish Oil (Fish Oil) 1,000 mg DAILY PO 03/22/21 09:00 04/02/21 08:21 Oxybutynin Chloride (Ditropan) 5 mg DAILY PO 03/22/21 09:00 04/02/21 08:22 Polymyxin/ Trimethoprim Sulfate (Polytrim) 1 drop TID OU 03/21/21 21:00 03/23/21 19:59 DC Cyanocobalamin (Vitamin B-12) 1,000 mcg DAILY PO 03/22/21 09:00 04/02/21 08:22 Multivitamins/ Calcium (Thera-M Plus) 1 tab DAILY PO 03/22/21 09:00 04/02/21 08:22 Multivitamins/ Minerals (I-[place]) 1 tab DAILY PO 03/22/21 09:00 04/02/21 08:22 Non-Formulary Medication ([Vitamin D + [place] 3] ) 1 tab DAILY PO 03/22/21 09:00 03/21/21 21:16 DC Hydroxyzine HCl (Atarax) 10 mg TID PO 03/22/21 09:00 03/26/21 16:04 DC 03/26/21 12:07 Acetaminophen (Tylenol) 650 mg PRN Q6HRS PRN PO MILD PAIN / TEMP > 100.3'F 03/22/21 00:30 UNV Multi-Ingredient Ointment (Analgesic [place]) 1 sindi PRN QID PRN TP MUSCLE PAIN 03/22/21 00:30 Al Hydroxide/Mg Hydroxide (Mylanta Plus Xs) 15 ml PRN AFTMEALHC PRN PO DYSPEPSIA 03/22/21 00:30 Magnesium Hydroxide (Milk Of Magnesia) 2,400 mg PRN QHS PRN PO CONSTIPATION 03/22/21 00:30 03/27/21 12:39 Olanzapine (ZyPREXA ZYDIS) 2.5 mg PRN Q2HR PRN PO PSYCHOSIS 03/23/21 15:00 03/29/21 20:44 Sertraline HCl (Zoloft) 25 mg DAILY PO 03/24/21 09:00 03/27/21 08:00 DC 03/26/21 08:34 Sertraline HCl (Zoloft) 50 mg DAILY PO 03/27/21 09:00 04/02/21 08:22 Divalproex Sodium (Depakote) 125 mg DAILY PO 03/25/21 09:00 03/28/21 17:53 DC 03/28/21 08:18 Divalproex Sodium (Depakote Sprinkles) 125 mg DAILYWSUP PO 03/24/21 17:00 03/28/21 17:53 DC 03/28/21 17:29 Medroxyprogesterone Acetate (Provera) 2.5 mg DAILY PO 03/26/21 09:00 03/29/21 15:34 DC 03/29/21 08:31 Hydroxyzine HCl (Atarax) 10 mg BID PO 03/26/21 21:00 03/28/21 23:55 DC 03/28/21 20:45 Quetiapine Fumarate (SEROquel) 12.5 mg 0900,1700 PO 03/27/21 09:00 04/02/21 08:23 Hydroxyzine HCl (Atarax) 10 mg DAILY PO 03/29/21 09:00 03/31/21 09:01 DC 03/31/21 08:29 Divalproex Sodium (Depakote Sprinkles) 250 mg DAILYWSUP PO 03/29/21 17:00 03/31/21 13:11 DC 03/30/21 17:35 Divalproex Sodium (Depakote) 250 mg DAILY PO 03/29/21 09:00 03/31/21 12:56 DC 03/31/21 08:34 Medroxyprogesterone Acetate (Provera) 5 mg DAILY PO 03/30/21 09:00 04/02/21 08:22 Divalproex Sodium (Depakote) 500 mg 0900,1700 PO 03/31/21 17:00 04/02/21 08:23 I have reviewed the current psychotropics carefully including drug interactions. Risk benefit ratio favors no change other than as noted in my dictated progress note. 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
--- NOTE | 2021-04-02 09:28 | PDOC ---
Exam Note: Fermin Note: This note is a late entry for 04/01/2021 covers elements not covered in my initial note. Subjective: The patient was seen individually in the evening of 04/01/2021 with Denny CAICEDO, discussed and reviewed the chart. He slept 6-1/4 hours previous night. The patient has been confused, calm but he is getting into other patients room this evening while I was on rounds. Apparently one of the other female demented patients came up and kissed him and he seemed oblivious to this. Review of Systems: No CV, , pulmonary, eye, ENT system symptoms on review. Reliability poor. Mental Status Exam: The patient is just oriented to himself. Insight and judgment, recent and remote memory, attention and concentration, fund of knowledge is poor consistent with his diagnoses. Laboratory Data: Reviewed. Impression: Major neurocognitive disorder Alzheimer vascular with delusion, depression, behavioral disturbance. Anxiety disorder unspecified. Impulse control disorder unspecified. Plan: Maintain rest of the psychotropics unchanged. Assessment: Vital Signs/I&O: Vital Signs Date Time Temp Pulse Resp B/P (MAP) Pulse Ox O2 Delivery O2 Flow Rate FiO2 04/02/21 08:22 70 120/62 04/02/21 05:46 98.8 18 97 Room Air I & O 04/01/21 04/01/21 04/02/21 15:00 23:00 07:00 Intake Total 480 ml 600 ml Balance 480 ml 600 ml Current Medications: Meds: Current Medications Medications (Trade) Dose Ordered Sig/Eve Route PRN Reason Start Time Stop Time Status Last Admin Dose Admin Acetaminophen (Tylenol) 650 mg PRN Q6HRS PRN PO PAIN/FEVER 03/21/21 20:00 03/24/21 20:51 Carvedilol (Coreg) 3.125 mg BIDWMEALS PO 03/22/21 08:00 04/02/21 08:22 Celecoxib (CeleBREX) 50 mg BID PO 03/21/21 21:00 03/23/21 19:59 DC Vitamin D (Vitamin D3) 1,000 unit DAILY PO 03/22/21 09:00 04/02/21 08:21 Hydroxyzine HCl (Atarax Oral Syrup) 10 mg TID PO 03/21/21 21:00 03/21/21 21:55 DC Ibuprofen (Motrin) 200 mg PRN Q6HRS PRN PO INFLAMMATION 03/21/21 21:15 03/24/21 14:54 DC Lorazepam (Ativan) 0.5 mg PRN Q6HRS PRN PO ANXIETY 03/21/21 20:00 03/23/21 14:59 DC 03/23/21 14:03 Melatonin (Melatonin) 3 mg QHS PO 03/21/21 21:00 04/01/21 20:13 Fish Oil (Fish Oil) 1,000 mg DAILY PO 03/22/21 09:00 04/02/21 08:21 Oxybutynin Chloride (Ditropan) 5 mg DAILY PO 03/22/21 09:00 04/02/21 08:22 Polymyxin/ Trimethoprim Sulfate (Polytrim) 1 drop TID OU 03/21/21 21:00 03/23/21 19:59 DC Cyanocobalamin (Vitamin B-12) 1,000 mcg DAILY PO 03/22/21 09:00 04/02/21 08:22 Multivitamins/ Calcium (Thera-M Plus) 1 tab DAILY PO 03/22/21 09:00 04/02/21 08:22 Multivitamins/ Minerals (I-Leland) 1 tab DAILY PO 03/22/21 09:00 04/02/21 08:22 Non-Formulary Medication ([Vitamin D + [place] 3] ) 1 tab DAILY PO 03/22/21 09:00 03/21/21 21:16 DC Hydroxyzine HCl (Atarax) 10 mg TID PO 03/22/21 09:00 03/26/21 16:04 DC 03/26/21 12:07 Acetaminophen (Tylenol) 650 mg PRN Q6HRS PRN PO MILD PAIN / TEMP > 100.3'F 03/22/21 00:30 UNV Multi-Ingredient Ointment (Analgesic [place]) 1 sindi PRN QID PRN TP MUSCLE PAIN 03/22/21 00:30 Al Hydroxide/Mg Hydroxide (Mylanta Plus Xs) 15 ml PRN AFTMEALHC PRN PO DYSPEPSIA 03/22/21 00:30 Magnesium Hydroxide (Milk Of Magnesia) 2,400 mg PRN QHS PRN PO CONSTIPATION 03/22/21 00:30 03/27/21 12:39 Olanzapine (ZyPREXA ZYDIS) 2.5 mg PRN Q2HR PRN PO PSYCHOSIS 03/23/21 15:00 03/29/21 20:44 Sertraline HCl (Zoloft) 25 mg DAILY PO 03/24/21 09:00 03/27/21 08:00 DC 03/26/21 08:34 Sertraline HCl (Zoloft) 50 mg DAILY PO 03/27/21 09:00 04/02/21 08:22 Divalproex Sodium (Depakote) 125 mg DAILY PO 03/25/21 09:00 03/28/21 17:53 DC 03/28/21 08:18 Divalproex Sodium (Depakote Sprinkles) 125 mg DAILYWSUP PO 03/24/21 17:00 03/28/21 17:53 DC 03/28/21 17:29 Medroxyprogesterone Acetate (Provera) 2.5 mg DAILY PO 03/26/21 09:00 03/29/21 15:34 DC 03/29/21 08:31 Hydroxyzine HCl (Atarax) 10 mg BID PO 03/26/21 21:00 03/28/21 23:55 DC 03/28/21 20:45 Quetiapine Fumarate (SEROquel) 12.5 mg 0900,1700 PO 03/27/21 09:00 04/02/21 08:23 Hydroxyzine HCl (Atarax) 10 mg DAILY PO 03/29/21 09:00 03/31/21 09:01 DC 03/31/21 08:29 Divalproex Sodium (Depakote Sprinkles) 250 mg DAILYWSUP PO 03/29/21 17:00 03/31/21 13:11 DC 03/30/21 17:35 Divalproex Sodium (Depakote) 250 mg DAILY PO 03/29/21 09:00 03/31/21 12:56 DC 03/31/21 08:34 Medroxyprogesterone Acetate (Provera) 5 mg DAILY PO 03/30/21 09:00 04/02/21 08:22 Divalproex Sodium (Depakote) 500 mg 0900,1700 PO 03/31/21 17:00 04/02/21 08:23 I have reviewed the current psychotropics carefully including drug interactions. Risk benefit ratio favors no change other than as noted in my dictated progress note. 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
[2021-04-02 15:41] VITALS: BP 115/71
--- NOTE | 2021-04-02 18:30 | NUR ---
Patient was calm, compliant, and pleasantly confused throughout the majority of this shift. He was weak this morning and used a wheelchair for throughout this shift. At dinner he was resistive and agitated when I approached him but was calm and compliant when approached by another staff member. Will continue to monitor and report to oncoming shift.
[2021-04-02] MEDS: MELATONIN 3 MG TABLET PO SCH (19:47)
--- NOTE | 2021-04-02 21:07 | NUR ---
Patient was sitting in the day room at the table by himself. He was not interactive, he would answer questions with one word answers, if he answered them at all. Patient denies pain and was compliant with his medication. He was cooperative with assessment. Patient has had no adverse behaviors this shift.
[2021-04-03 06:09] VITALS: BP 158/84
--- NOTE | 2021-04-03 06:43 | PDOC ---
Exam Note: Fermin Note: Late entry for 04/02/2021. Please also refer to the separate dictated note~for this date of service dictated separately.~Patient seen individually. Discussed the patient with Nursing staff reviewed the chart.~Reviewed interim history and current functioning. Reviewed vital signs,~Labs/ Radiology~and current medic ations noted below. Continue current treatment with the changes noted in the dictated addendum note Assessment: Vital Signs/I&O: Vital Signs Date Time Temp Pulse Resp B/P (MAP) Pulse Ox O2 Delivery O2 Flow Rate FiO2 04/03/21 06:09 98.1 65 16 158/84 (108) 98 Room Air I & O 04/02/21 04/02/21 04/03/21 14:59 22:59 06:59 Intake Total 720 ml 480 ml Balance 720 ml 480 ml Current Medications: Meds: Current Medications Medications (Trade) Dose Ordered Sig/Eve Route PRN Reason Start Time Stop Time Status Last Admin Dose Admin Acetaminophen (Tylenol) 650 mg PRN Q6HRS PRN PO PAIN/FEVER 03/21/21 20:00 03/24/21 20:51 Carvedilol (Coreg) 3.125 mg BIDWMEALS PO 03/22/21 08:00 04/02/21 17:30 Celecoxib (CeleBREX) 50 mg BID PO 03/21/21 21:00 03/23/21 19:59 DC Vitamin D (Vitamin D3) 1,000 unit DAILY PO 03/22/21 09:00 04/02/21 08:21 Hydroxyzine HCl (Atarax Oral Syrup) 10 mg TID PO 03/21/21 21:00 03/21/21 21:55 DC Ibuprofen (Motrin) 200 mg PRN Q6HRS PRN PO INFLAMMATION 03/21/21 21:15 03/24/21 14:54 DC Lorazepam (Ativan) 0.5 mg PRN Q6HRS PRN PO ANXIETY 03/21/21 20:00 03/23/21 14:59 DC 03/23/21 14:03 Melatonin (Melatonin) 3 mg QHS PO 03/21/21 21:00 04/02/21 19:47 Fish Oil (Fish Oil) 1,000 mg DAILY PO 03/22/21 09:00 04/02/21 08:21 Oxybutynin Chloride (Ditropan) 5 mg DAILY PO 03/22/21 09:00 04/02/21 08:22 Polymyxin/ Trimethoprim Sulfate (Polytrim) 1 drop TID OU 03/21/21 21:00 03/23/21 19:59 DC Cyanocobalamin (Vitamin B-12) 1,000 mcg DAILY PO 03/22/21 09:00 04/02/21 08:22 Multivitamins/ Calcium (Thera-M Plus) 1 tab DAILY PO 03/22/21 09:00 04/02/21 08:22 Multivitamins/ Minerals (I-[place]) 1 tab DAILY PO 03/22/21 09:00 04/02/21 08:22 Non-Formulary Medication ([Vitamin D + [place] 3] ) 1 tab DAILY PO 03/22/21 09:00 03/21/21 21:16 DC Hydroxyzine HCl (Atarax) 10 mg TID PO 03/22/21 09:00 03/26/21 16:04 DC 03/26/21 12:07 Acetaminophen (Tylenol) 650 mg PRN Q6HRS PRN PO MILD PAIN / TEMP > 100.3'F 03/22/21 00:30 UNV Multi-Ingredient Ointment (Analgesic [place]) 1 sindi PRN QID PRN TP MUSCLE PAIN 03/22/21 00:30 Al Hydroxide/Mg Hydroxide (Mylanta Plus Xs) 15 ml PRN AFTMEALHC PRN PO DYSPEPSIA 03/22/21 00:30 Magnesium Hydroxide (Milk Of Magnesia) 2,400 mg PRN QHS PRN PO CONSTIPATION 03/22/21 00:30 03/27/21 12:39 Olanzapine (ZyPREXA ZYDIS) 2.5 mg PRN Q2HR PRN PO PSYCHOSIS 03/23/21 15:00 03/29/21 20:44 Sertraline HCl (Zoloft) 25 mg DAILY PO 03/24/21 09:00 03/27/21 08:00 DC 03/26/21 08:34 Sertraline HCl (Zoloft) 50 mg DAILY PO 03/27/21 09:00 04/02/21 08:22 Divalproex Sodium (Depakote) 125 mg DAILY PO 03/25/21 09:00 03/28/21 17:53 DC 03/28/21 08:18 Divalproex Sodium (Depakote Sprinkles) 125 mg DAILYWSUP PO 03/24/21 17:00 03/28/21 17:53 DC 03/28/21 17:29 Medroxyprogesterone Acetate (Provera) 2.5 mg DAILY PO 03/26/21 09:00 03/29/21 15:34 DC 03/29/21 08:31 Hydroxyzine HCl (Atarax) 10 mg BID PO 03/26/21 21:00 03/28/21 23:55 DC 03/28/21 20:45 Quetiapine Fumarate (SEROquel) 12.5 mg 0900,1700 PO 03/27/21 09:00 04/02/21 17:29 Hydroxyzine HCl (Atarax) 10 mg DAILY PO 03/29/21 09:00 03/31/21 09:01 DC 03/31/21 08:29 Divalproex Sodium (Depakote Sprinkles) 250 mg DAILYWSUP PO 03/29/21 17:00 03/31/21 13:11 DC 03/30/21 17:35 Divalproex Sodium (Depakote) 250 mg DAILY PO 03/29/21 09:00 03/31/21 12:56 DC 03/31/21 08:34 Medroxyprogesterone Acetate (Provera) 5 mg DAILY PO 03/30/21 09:00 04/02/21 08:22 Divalproex Sodium (Depakote) 500 mg 0900,1700 PO 03/31/21 17:00 04/02/21 17:31 I have reviewed the current psychotropics carefully including drug interactions. Risk benefit ratio favors no change other than as noted in my dictated progress note. 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
[2021-04-03] MEDS: OMEGA-3 FATTY ACIDS/FISH OIL 1,000 MG CAPSULE. PO SCH (08:19)
[2021-04-03] MEDS: CHOLECALCIFEROL (VITAMIN D3) 1,000 UNIT TABLET PO SCH (08:19)
[2021-04-03] MEDS: MULTIVITAMIN with MINERAL TABLET. PO SCH (08:19)
[2021-04-03] MEDS: MULTIVITAMIN I-VITE TABLET. PO SCH (08:19)
[2021-04-03] MEDS: CYANOCOBALAMIN (VITAMIN B-12) 1,000 MCG TABLET. PO SCH (08:19)
[2021-04-03] MEDS: DIVALPROEX SODIUM 250 MG TABLET.DR. PO SCH ×2 (08:19→17:37)
[2021-04-03] MEDS: SERTRALINE 50 MG TABLET. PO SCH (08:19)
[2021-04-03] MEDS: medroxyPROGESTERone 5 MG TABLET PO SCH (08:19)
[2021-04-03] MEDS: CARVEDILOL 3.125 MG TABLET PO SCH ×2 (08:20→17:38)
[2021-04-03] MEDS: OXYBUTYNIN CHLORIDE 5 MG TABLET PO SCH (08:21)
[2021-04-03] MEDS: QUEtiapine 25 MG TABLET. PO SCH ×2 (08:21→17:39)
[2021-04-03 15:37] VITALS: BP 117/71
--- NOTE | 2021-04-03 16:06 | NUR ---
Nsg note; Ryan has been calm and cooperative today, taking his meds without difficulty. he comes to the dining room for meals and feeds himself. he does spend time between meals in his room. he will answer questions with short statements
[2021-04-03] MEDS: MELATONIN 3 MG TABLET PO SCH (20:03)
[2021-04-03] MEDS: ACETAMINOPHEN 325 MG TABLET PO PRN (20:04)
--- NOTE | 2021-04-03 20:39 | NUR ---
PRN tylenol given per order for pain, patient unable to say where pain was but said "it hurts". Nurse in to check on patient after tylenol and he was asleep, no s/s pain noted at this time. Will continue to monitor.
--- NOTE | 2021-04-03 22:04 | PDOC ---
Exam Note: Fermin Note: Please also refer to the separate dictated note~for this date of service dictated separately.~Patient seen individually. Discussed the patient with Nursing staff reviewed the chart.~Reviewed interim history and current functioning. Reviewed vital signs,~Labs/ Radiology~and current medications noted below. Continue current treatment with the changes noted in the dictated addendum note Assessment: Vital Signs/I&O: Vital Signs Date Time Temp Pulse Resp B/P (MAP) Pulse Ox O2 Delivery O2 Flow Rate FiO2 04/03/21 17:38 59 117/71 04/03/21 15:37 98.5 16 98 04/03/21 06:09 Room Air I & O 04/02/21 04/02/21 04/03/21 15:00 23:00 07:00 Intake Total 720 ml 480 ml Balance 720 ml 480 ml Current Medications: Meds: Current Medications Medications (Trade) Dose Ordered Sig/Eve Route PRN Reason Start Time Stop Time Status Last Admin Dose Admin Acetaminophen (Tylenol) 650 mg PRN Q6HRS PRN PO PAIN/FEVER 03/21/21 20:00 04/03/21 20:04 Carvedilol (Coreg) 3.125 mg BIDWMEALS PO 03/22/21 08:00 04/03/21 17:38 Celecoxib (CeleBREX) 50 mg BID PO 03/21/21 21:00 03/23/21 19:59 DC Vitamin D (Vitamin D3) 1,000 unit DAILY PO 03/22/21 09:00 04/03/21 08:19 Hydroxyzine HCl (Atarax Oral Syrup) 10 mg TID PO 03/21/21 21:00 03/21/21 21:55 DC Ibuprofen (Motrin) 200 mg PRN Q6HRS PRN PO INFLAMMATION 03/21/21 21:15 03/24/21 14:54 DC Lorazepam (Ativan) 0.5 mg PRN Q6HRS PRN PO ANXIETY 03/21/21 20:00 03/23/21 14:59 DC 03/23/21 14:03 Melatonin (Melatonin) 3 mg QHS PO 03/21/21 21:00 04/03/21 20:03 Fish Oil (Fish Oil) 1,000 mg DAILY PO 03/22/21 09:00 04/03/21 08:19 Oxybutynin Chloride (Ditropan) 5 mg DAILY PO 03/22/21 09:00 04/03/21 08:21 Polymyxin/ Trimethoprim Sulfate (Polytrim) 1 drop TID OU 03/21/21 21:00 03/23/21 19:59 DC Cyanocobalamin (Vitamin B-12) 1,000 mcg DAILY PO 03/22/21 09:00 04/03/21 08:19 Multivitamins/ Calcium (Thera-M Plus) 1 tab DAILY PO 03/22/21 09:00 04/03/21 08:19 Multivitamins/ Minerals (I-[place]) 1 tab DAILY PO 03/22/21 09:00 04/03/21 08:19 Non-Formulary Medication ([Vitamin D + [place] 3] ) 1 tab DAILY PO 03/22/21 09:00 03/21/21 21:16 DC Hydroxyzine HCl (Atarax) 10 mg TID PO 03/22/21 09:00 03/26/21 16:04 DC 03/26/21 12:07 Acetaminophen (Tylenol) 650 mg PRN Q6HRS PRN PO MILD PAIN / TEMP > 100.3'F 03/22/21 00:30 UNV Multi-Ingredient Ointment (Analgesic [place]) 1 sindi PRN QID PRN TP MUSCLE PAIN 03/22/21 00:30 Al Hydroxide/Mg Hydroxide (Mylanta Plus Xs) 15 ml PRN AFTMEALHC PRN PO DYSPEPSIA 03/22/21 00:30 Magnesium Hydroxide (Milk Of Magnesia) 2,400 mg PRN QHS PRN PO CONSTIPATION 03/22/21 00:30 03/27/21 12:39 Olanzapine (ZyPREXA ZYDIS) 2.5 mg PRN Q2HR PRN PO PSYCHOSIS 03/23/21 15:00 03/29/21 20:44 Sertraline HCl (Zoloft) 25 mg DAILY PO 03/24/21 09:00 03/27/21 08:00 DC 03/26/21 08:34 Sertraline HCl (Zoloft) 50 mg DAILY PO 03/27/21 09:00 04/03/21 08:19 Divalproex Sodium (Depakote) 125 mg DAILY PO 03/25/21 09:00 03/28/21 17:53 DC 03/28/21 08:18 Divalproex Sodium (Depakote Sprinkles) 125 mg DAILYWSUP PO 03/24/21 17:00 03/28/21 17:53 DC 03/28/21 17:29 Medroxyprogesterone Acetate (Provera) 2.5 mg DAILY PO 03/26/21 09:00 03/29/21 15:34 DC 03/29/21 08:31 Hydroxyzine HCl (Atarax) 10 mg BID PO 03/26/21 21:00 03/28/21 23:55 DC 03/28/21 20:45 Quetiapine Fumarate (SEROquel) 12.5 mg 0900,1700 PO 03/27/21 09:00 04/03/21 17:39 Hydroxyzine HCl (Atarax) 10 mg DAILY PO 03/29/21 09:00 03/31/21 09:01 DC 03/31/21 08:29 Divalproex Sodium (Depakote Sprinkles) 250 mg DAILYWSUP PO 03/29/21 17:00 03/31/21 13:11 DC 03/30/21 17:35 Divalproex Sodium (Depakote) 250 mg DAILY PO 03/29/21 09:00 03/31/21 12:56 DC 03/31/21 08:34 Medroxyprogesterone Acetate (Provera) 5 mg DAILY PO 03/30/21 09:00 04/03/21 08:19 Divalproex Sodium (Depakote) 500 mg 0900,1700 PO 03/31/21 17:00 04/03/21 17:37 I have reviewed the current psychotropics carefully including drug interactions. Risk benefit ratio favors no change other than as noted in my dictated progress note. 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
--- NOTE | 2021-04-04 00:37 | NUR ---
Patients gait has changed substantially in the past 24 hours and he has been having problems walking today. This morning he was assisted into a wheelchair by staff and helped into day room as he was very unsteady. Tonight he was walked to his room by a TEA ROOM MANAGER who told him to take each step, he appeared to be having difficulty following her instructions. Patient appears weaker than on previous days. Patient went to bed early. Patient has not been started on any new medications in the past few days. Patient is unable to express what is different when asked. Will continue to monitor.
[2021-04-04] MEDS: ACETAMINOPHEN 325 MG TABLET PO PRN (03:43)
[2021-04-04 05:58] LABS: BACTERIA,URINE 0 /HPF (0-FEW); BILIRUBIN,URINE NEG (NEG); CLARITY,URINE CLEAR; COLOR,URINE YELLOW; GLUCOSE,URINE NEG (NEG); NITRITE,URINE NEG (NEG); RBC,URINE 0 /HPF (0-2); UROBILINOGEN,URINE 0.2 mg/dL (0.2 mg/dL); WBC,URINE 0 /HPF (0-4)
[2021-04-04 06:14] VITALS: BP 166/81
--- NOTE | 2021-04-04 06:22 | PDOC ---
Exam Note: Fermin Note: This note is a late entry for 04/02/2021 covers elements not covered in my initial note. Subjective: The patient was seen individually in the evening of 04/02/2021 with Denny CAICEDO, discussed and reviewed the chart. He slept 7 hours previous night. The patient remains confused, anxious, restless, wandering into other patients rooms and he did this 3 times with me on rounds. He has been in wheelchair, a little more weak, yelling at times. Review of Systems: No CV, , pulmonary, eye, ENT system symptoms on review. Reliability poor. Mental Status Exam: The patient is just oriented to himself. Insight and judgment, recent and remote memory, attention and concentration, fund of knowle dge is poor consistent with his diagnoses. Laboratory Data: Reviewed. Impression: Major neurocognitive disorder Alzheimer vascular with delusion, depression, behavioral disturbance. Anxiety disorder unspecified. Impulse control disorder unspecified. Plan: Continue current psychotropics. Valproic acid level is to be checked on 04/03. We will adjust Depakote thereafter. Assessment: Vital Signs/I&O: Vital Signs Date Time Temp Pulse Resp B/P (MAP) Pulse Ox O2 Delivery O2 Flow Rate FiO2 04/04/21 06:14 98.6 58 20 166/81 (109) 100 Room Air I & O 0 04/03/21 04/03/21 04/04/21 15:00 23:00 07:00 Intake Total 600 ml 440 ml Balance 600 ml 440 ml Labs: Laboratory Tests Test 04/04/21 03:45 Urine Collection Type Clean catch Urine Color Yellow Urine Clarity Clear Urine pH 5.5 Urine Specific [place] 1.020 Urine Protein 30 mg/dl (NEG-TRACE) Urine Glucose (UA) Neg mg/dL (NEG) Urine Ketones (Stick) Neg mg/dL (NEG) Urine Blood Neg (NEG) Urine Nitrite Neg (NEG) Urine Bilirubin Neg (NEG) Urine Urobilinogen Dipstick 0.2 mg/dL (0.2 mg/dL) Urine Leukocyte Esterase Neg (NEG) Urine RBC 0 /HPF (0-2) Urine WBC 0 /HPF (0-4) Urine Bacteria 0 /HPF (0-FEW) Current Medications: Meds: Laboratory Tests Test 04/04/21 03:45 Urine Collection Type Clean catch Urine Color Yellow Urine Clarity Clear Urine pH 5.5 Urine Specific [place] 1.020 Urine Protein 30 mg/dl Urine Glucose (UA) Neg mg/dL Urine Ketones (Stick) Neg mg/dL Urine Blood Neg Urine Nitrite Neg Urine Bilirubin Neg Urine Urobilinogen Dipstick 0.2 mg/dL Urine Leukocyte Esterase Neg Urine RBC 0 /HPF Urine WBC 0 /HPF Urine Bacteria 0 /HPF Current Medications Medications (Trade) Dose Ordered Sig/Eve Route PRN Reason Start Time Stop Time Status Last Admin Dose Admin Acetaminophen (Tylenol) 650 mg PRN Q6HRS PRN PO PAIN/FEVER 03/21/21 20:00 04/04/21 03:43 Carvedilol (Coreg) 3.125 mg BIDWMEALS PO 03/22/21 08:00 04/03/21 17:38 Celecoxib (CeleBREX) 50 mg BID PO 03/21/21 21:00 03/23/21 19:59 DC Vitamin D (Vitamin D3) 1,000 unit DAILY PO 03/22/21 09:00 04/03/21 08:19 Hydroxyzine HCl (Atarax Oral Syrup) 10 mg TID PO 03/21/21 21:00 03/21/21 21:55 DC Ibuprofen (Motrin) 200 mg PRN Q6HRS PRN PO INFLAMMATION 03/21/21 21:15 03/24/21 14:54 DC Lorazepam (Ativan) 0.5 mg PRN Q6HRS PRN PO ANXIETY 03/21/21 20:00 03/23/21 14:59 DC 03/23/21 14:03 Melatonin (Melatonin) 3 mg QHS PO 03/21/21 21:00 04/03/21 20:03 Fish Oil (Fish Oil) 1,000 mg DAILY PO 03/22/21 09:00 04/03/21 08:19 Oxybutynin Chloride (Ditropan) 5 mg DAILY PO 03/22/21 09:00 04/03/21 08:21 Polymyxin/ Trimethoprim Sulfate (Polytrim) 1 drop TID OU 03/21/21 21:00 03/23/21 19:59 DC Cyanocobalamin (Vitamin B-12) 1,000 mcg DAILY PO 03/22/21 09:00 04/03/21 08:19 Multivitamins/ Calcium (Thera-M Plus) 1 tab DAILY PO 03/22/21 09:00 04/03/21 08:19 Multivitamins/ Minerals (I-[place]) 1 tab DAILY PO 03/22/21 09:00 04/03/21 08:19 Non-Formulary Medication ([Vitamin D + [place] 3] ) 1 tab DAILY PO 03/22/21 09:00 03/21/21 21:16 DC Hydroxyzine HCl (Atarax) 10 mg TID PO 03/22/21 09:00 03/26/21 16:04 DC 03/26/21 12:07 Acetaminophen (Tylenol) 650 mg PRN Q6HRS PRN PO MILD PAIN / TEMP > 100.3'F 03/22/21 00:30 UNV Multi-Ingredient Ointment (Analgesic [place]) 1 sindi PRN QID PRN TP MUSCLE PAIN 03/22/21 00:30 Al Hydroxide/Mg Hydroxide (Mylanta Plus Xs) 15 ml PRN AFTMEALHC PRN PO DYSPEPSIA 03/22/21 00:30 Magnesium Hydroxide (Milk Of Magnesia) 2,400 mg PRN QHS PRN PO CONSTIPATION 03/22/21 00:30 03/27/21 12:39 Olanzapine (ZyPREXA ZYDIS) 2.5 mg PRN Q2HR PRN PO PSYCHOSIS 03/23/21 15:00 03/29/21 20:44 Sertraline HCl (Zoloft) 25 mg DAILY PO 03/24/21 09:00 03/27/21 08:00 DC 03/26/21 08:34 Sertraline HCl (Zoloft) 50 mg DAILY PO 03/27/21 09:00 04/03/21 08:19 Divalproex Sodium (Depakote) 125 mg DAILY PO 03/25/21 09:00 03/28/21 17:53 DC 03/28/21 08:18 Divalproex Sodium (Depakote Sprinkles) 125 mg DAILYWSUP PO 03/24/21 17:00 03/28/21 17:53 DC 03/28/21 17:29 Medroxyprogesterone Acetate (Provera) 2.5 mg DAILY PO 03/26/21 09:00 03/29/21 15:34 DC 03/29/21 08:31 Hydroxyzine HCl (Atarax) 10 mg BID PO 03/26/21 21:00 03/28/21 23:55 DC 03/28/21 20:45 Quetiapine Fumarate (SEROquel) 12.5 mg 0900,1700 PO 03/27/21 09:00 04/03/21 17:39 Hydroxyzine HCl (Atarax) 10 mg DAILY PO 03/29/21 09:00 03/31/21 09:01 DC 03/31/21 08:29 Divalproex Sodium (Depakote Sprinkles) 250 mg DAILYWSUP PO 03/29/21 17:00 03/31/21 13:11 DC 03/30/21 17:35 Divalproex Sodium (Depakote) 250 mg DAILY PO 03/29/21 09:00 03/31/21 12:56 DC 03/31/21 08:34 Medroxyprogesterone Acetate (Provera) 5 mg DAILY PO 03/30/21 09:00 04/03/21 08:19 Divalproex Sodium (Depakote) 500 mg 0900,1700 PO 03/31/21 17:00 04/03/21 17:37 I have reviewed the current psychotropics carefully including drug interactions. Risk benefit ratio favors no change other than as noted in my dictated progress note. 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
--- NOTE | 2021-04-04 06:49 | PDOC ---
Exam Note: Fermin Note: This note is a late entry for 04/03/2021overs elements not covered in my initial note. Subjective: The patient was seen individually in the evening of 04/03/2021with Denny CAICEDO, discussed and reviewed the chart. He slept 5-1/4 hours previous night. The patient was seen on rounds. Per Abi CAICEDO who obtained nurse from the patients kiln hand today, remains confused now. No active aggression though he continues to wander the hallways. Review of Systems: No CV, , pulmonary, eye, ENT system symptoms on review. Mental Status Exam: The patient is just oriented to himself. Insight and judgment, recent and remote memory, attention and concentration, fund of knowledge is poor consistent with his diagnoses. Laboratory Data: Reviewed. Impression: Major neurocognitive disorder Alzheimer vascular with delusion, d epression, behavioral disturbance. Anxiety disorder unspecified. Impulse control disorder unspecified. Plan: Maintain rest of the psychotropics unchanged. Assessment: Vital Signs/I&O: Vital Signs Date Time Temp Pulse Resp B/P (MAP) Pulse Ox O2 Delivery O2 Flow Rate FiO2 04/04/21 06:14 98.6 58 20 166/81 (109) 100 Room Air I & O 04/03/21 04/03/21 04/04/21 15:00 23:00 07:00 Intake Total 600 ml 440 ml Balance 600 ml 440 ml Labs: Laboratory Tests Test 04/04/21 03:45 Urine Collection Type Clean catch Urine Color Yellow Urine Clarity Clear Urine pH 5.5 Urine Specific [place] 1.020 Urine Protein 30 mg/dl (NEG-TRACE) Urine Glucose (UA) Neg mg/dL (NEG) Urine Ketones (Stick) Neg mg/dL (NEG) Urine Blood Neg (NEG) Urine Nitrite Neg (NEG) Urine Bilirubin Neg (NEG) Urine Urobilinogen Dipstick 0.2 mg/dL (0.2 mg/dL) Urine Leukocyte Esterase Neg (NEG) Urine RBC 0 /HPF (0-2) Urine WBC 0 /HPF (0-4) Urine Bacteria 0 /HPF (0-FEW) Current Medications: Meds: Laboratory Tests Test 04/04/21 03:45 Urine Collection Type Clean catch Urine Color Yellow Urine Clarity Clear Urine pH 5.5 Urine Specific [place] 1.020 Urine Protein 30 mg/dl Urine Glucose (UA) Neg mg/dL Urine Ketones (Stick) Neg mg/dL Urine Blood Neg Urine Nitrite Neg Urine Bilirubin Neg Urine Urobilinogen Dipstick 0.2 mg/dL Urine Leukocyte Esterase Neg Urine RBC 0 /HPF Urine WBC 0 /HPF Urine Bacteria 0 /HPF Current Medications Medications (Trade) Dose Ordered Sig/Eve Route PRN Reason Start Time Stop Time Status Last Admin Dose Admin Acetaminophen (Tylenol) 650 mg PRN Q6HRS PRN PO PAIN/FEVER 03/21/21 20:00 04/04/21 03:43 Carvedilol (Coreg) 3.125 mg BIDWMEALS PO 03/22/21 08:00 04/03/21 17:38 Celecoxib (CeleBREX) 50 mg BID PO 03/21/21 21:00 03/23/21 19:59 DC Vitamin D (Vitamin D3) 1,000 unit DAILY PO 03/22/21 09:00 04/03/21 08:19 Hydroxyzine HCl (Atarax Oral Syrup) 10 mg TID PO 03/21/21 21:00 03/21/21 21:55 DC Ibuprofen (Motrin) 200 mg PRN Q6HRS PRN PO INFLAMMATION 03/21/21 21:15 03/24/21 14:54 DC Lorazepam (Ativan) 0.5 mg PRN Q6HRS PRN PO ANXIETY 03/21/21 20:00 03/23/21 14:59 DC 03/23/21 14:03 Melatonin (Melatonin) 3 mg QHS PO 03/21/21 21:00 04/03/21 20:03 Fish Oil (Fish Oil) 1,000 mg DAILY PO 03/22/21 09:00 04/03/21 08:19 Oxybutynin Chloride (Ditropan) 5 mg DAILY PO 03/22/21 09:00 04/03/21 08:21 Polymyxin/ Trimethoprim Sulfate (Polytrim) 1 drop TID OU 03/21/21 21:00 03/23/21 19:59 DC Cyanocobalamin (Vitamin B-12) 1,000 mcg DAILY PO 03/22/21 09:00 04/03/21 08:19 Multivitamins/ Calcium (Thera-M Plus) 1 tab DAILY PO 03/22/21 09:00 04/03/21 08:19 Multivitamins/ Minerals (I-[place]) 1 tab DAILY PO 03/22/21 09:00 04/03/21 08:19 Non-Formulary Medication ([Vitamin D + [place] 3] ) 1 tab DAILY PO 03/22/21 09:00 03/21/21 21:16 DC Hydroxyzine HCl (Atarax) 10 mg TID PO 03/22/21 09:00 03/26/21 16:04 DC 03/26/21 12:07 Acetaminophen (Tylenol) 650 mg PRN Q6HRS PRN PO MILD PAIN / TEMP > 100.3'F 03/22/21 00:30 UNV Multi-Ingredient Ointment (Analgesic [place]) 1 sindi PRN QID PRN TP MUSCLE PAIN 03/22/21 00:30 Al Hydroxide/Mg Hydroxide (Mylanta Plus Xs) 15 ml PRN AFTMEALHC PRN PO DYSPEPSIA 03/22/21 00:30 Magnesium Hydroxide (Milk Of Magnesia) 2,400 mg PRN QHS PRN PO CONSTIPATION 03/22/21 00:30 03/27/21 12:39 Olanzapine (ZyPREXA ZYDIS) 2.5 mg PRN Q2HR PRN PO PSYCHOSIS 03/23/21 15:00 03/29/21 20:44 Sertraline HCl (Zoloft) 25 mg DAILY PO 03/24/21 09:00 03/27/21 08:00 DC 03/26/21 08:34 Sertraline HCl (Zoloft) 50 mg DAILY PO 03/27/21 09:00 04/03/21 08:19 Divalproex Sodium (Depakote) 125 mg DAILY PO 03/25/21 09:00 03/28/21 17:53 DC 03/28/21 08:18 Divalproex Sodium (Depakote Sprinkles) 125 mg DAILYWSUP PO 03/24/21 17:00 03/28/21 17:53 DC 03/28/21 17:29 Medroxyprogesterone Acetate (Provera) 2.5 mg DAILY PO 03/26/21 09:00 03/29/21 15:34 DC 03/29/21 08:31 Hydroxyzine HCl (Atarax) 10 mg BID PO 03/26/21 21:00 03/28/21 23:55 DC 03/28/21 20:45 Quetiapine Fumarate (SEROquel) 12.5 mg 0900,1700 PO 03/27/21 09:00 04/03/21 17:39 Hydroxyzine HCl (Atarax) 10 mg DAILY PO 03/29/21 09:00 03/31/21 09:01 DC 03/31/21 08:29 Divalproex Sodium (Depakote Sprinkles) 250 mg DAILYWSUP PO 03/29/21 17:00 03/31/21 13:11 DC 03/30/21 17:35 Divalproex Sodium (Depakote) 250 mg DAILY PO 03/29/21 09:00 03/31/21 12:56 DC 03/31/21 08:34 Medroxyprogesterone Acetate (Provera) 5 mg DAILY PO 03/30/21 09:00 04/03/21 08:19 Divalproex Sodium (Depakote) 500 mg 0900,1700 PO 03/31/21 17:00 04/03/21 17:37 I have reviewed the current psychotropics carefully including drug interactions. Risk benefit ratio favors no change other than as noted in my dictated progress note. 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
[2021-04-04] MEDS: DIVALPROEX SODIUM 250 MG TABLET.DR. PO SCH ×2 (08:54→16:54)
[2021-04-04] MEDS: medroxyPROGESTERone 5 MG TABLET PO SCH (08:54)
[2021-04-04] MEDS: SERTRALINE 50 MG TABLET. PO SCH (08:54)
[2021-04-04] MEDS: MULTIVITAMIN with MINERAL TABLET. PO SCH (08:54)
[2021-04-04] MEDS: OXYBUTYNIN CHLORIDE 5 MG TABLET PO SCH (08:54)
[2021-04-04] MEDS: CARVEDILOL 3.125 MG TABLET PO SCH ×2 (08:54→16:54)
[2021-04-04] MEDS: CHOLECALCIFEROL (VITAMIN D3) 1,000 UNIT TABLET PO SCH (08:54)
[2021-04-04] MEDS: MULTIVITAMIN I-VITE TABLET. PO SCH (08:54)
[2021-04-04] MEDS: CYANOCOBALAMIN (VITAMIN B-12) 1,000 MCG TABLET. PO SCH (08:54)
[2021-04-04] MEDS: OMEGA-3 FATTY ACIDS/FISH OIL 1,000 MG CAPSULE. PO SCH (08:55)
[2021-04-04] MEDS: QUEtiapine 25 MG TABLET. PO SCH ×2 (08:55→16:54)
--- NOTE | 2021-04-04 09:24 | NUR ---
Pt appears to be having difficulty this morning. He is confused and disorganized, at one point asking this nurse if my mother was here in the building. Gait is shuffling and unsteady; he takes little steps no more than 3-4 inches apart and requires frequent reminders to continue walking as he will stop and pause for extended periods of time almost as if he has forgotten the activity he was just engaged in. While ambulating he displayed loud, deep, and audible mouth breathing. Lungs clear to auscultation, no cough noted. COVID test from 04/03/21 is negative. W/c provided to pt for safety. Pt tried to be compliant with meds; however pills needed to be floated in pudding and he also had difficulty engaging in the act of swallowing. A&O to self only. Plan of care continues, will pass to next shift. Addendum: 04/04/21 at 1728 by DAYANNA MEDRANO RN Charge Nurse Abi spoke with Dr Selby concerning pt's presentation and condition. No orders at this time. Will continue to monitor.
--- NOTE | 2021-04-04 14:55 | NUR ---
THOMAS returned call to Isai at [facility] to give her an update on pt. THOMAS informed Isai that originally pt is very active on the unit, flirtatious with other peers and participating in groups. The last few days have been noted that pt has exhibited an unsteady gait, a bit lethargic and needing a wheelchair. Isai agreed that it not normal for pt and is hoping that over the weekend, pt will be able to rally back to his norm. THOMAS explained that they would ask insurance for at least Wednesday for discharge and Isai has requested that THOMAS let them know VAUGHN.
[2021-04-04 15:45] VITALS: BP 164/82
[2021-04-04 18:57] LABS: CALCIUM 8.5 mg/dL (8.5-10.1); CREATININE 2.9 mg/dL (0.7-1.3); GFR 20.8; POTASSIUM 4.6 mmol/L (3.5-5.1)
[2021-04-04 19:03] LABS: ALBUMIN 3.6 g/dL (3.4-5.0); ALBUMIN/GLOBULIN RATIO 1.1 (1.0-1.7); TOTAL BILIRUBIN 0.3 mg/dL (0.2-1.0)
[2021-04-04] MEDS: MELATONIN 3 MG TABLET PO SCH (20:24)
--- NOTE | 2021-04-04 22:08 | PDOC ---
Exam Note: Fermin Note: Please also refer to the separate dictated note~for this date of service dictated separately.~Patient seen individually. Discussed the patient with Nursing staff reviewed the chart.~Reviewed interim history and current functioning. Reviewed vital signs,~Labs/ Radiology~and current medications noted below. Continue current treatment with the changes noted in the dictated addendum note Assessment: Vital Signs/I&O: Vital Signs Date Time Temp Pulse Resp B/P (MAP) Pulse Ox O2 Delivery O2 Flow Rate FiO2 04/04/21 16:54 54 164/82 04/04/21 15:45 97.8 18 98 04/04/21 06:14 Room Air I & O 04/03/21 04/03/21 04/04/21 15:00 23:00 07:00 Intake Total 600 ml 440 ml Balance 600 ml 440 ml Labs: Laboratory Tests Test 04/04/21 03:45 04/04/21 18:35 Urine Collection Type Clean catch Urine Color Yellow Urine Clarity Clear Urine pH 5.5 Urine Specific Pilot 1.020 Urine Protein 30 mg/dl (NEG-TRACE) Urine Glucose (UA) Neg mg/dL (NEG) Urine Ketones (Stick) Neg mg/dL (NEG) Urine Blood Neg (NEG) Urine Nitrite Neg (NEG) Urine Bilirubin Neg (NEG) Urine Urobilinogen Dipstick 0.2 mg/dL (0.2 mg/dL) Urine Leukocyte Esterase Neg (NEG) Urine RBC 0 /HPF (0-2) Urine WBC 0 /HPF (0-4) Urine Bacteria 0 /HPF (0-FEW) Sodium Level 143 mmol/L (136-145) Potassium Level 4.6 mmol/L (3.5-5.1) Chloride Level 106 mmol/L (98-107) Carbon Dioxide Level 25 mmol/L (21-32) Anion Gap 12 (6-14) Blood Urea Nitrogen 64 mg/dL (8-26) H Creatinine 2.9 mg/dL (0.7-1.3) H Estimated GFR (Cockcroft-Gault) 20.8 BUN/Creatinine Ratio 22 (6-20) H Glucose Level 113 mg/dL (70-99) H Calcium Level 8.5 mg/dL (8.5-10.1) Total Bilirubin 0.3 mg/dL (0.2-1.0) Aspartate Amino Transferase (AST) 16 U/L (15-37) Alanine Aminotransferase (ALT) 26 U/L (16-63) Alkaline Phosphatase 97 U/L (46-116) Total Protein 7.0 g/dL (6.4-8.2) Albumin 3.6 g/dL (3.4-5.0) Albumin/Globulin Ratio 1.1 (1.0-1.7) Current Medications: Meds: Laboratory Tests Test 04/04/21 03:45 04/04/21 18:35 Urine Collection Type Clean catch Urine Color Yellow Urine Clarity Clear Urine pH 5.5 Urine Specific [place] 1.020 Urine Protein 30 mg/dl Urine Glucose (UA) Neg mg/dL Urine Ketones (Stick) Neg mg/dL Urine Blood Neg Urine Nitrite Neg Urine Bilirubin Neg Urine Urobilinogen Dipstick 0.2 mg/dL Urine Leukocyte Esterase Neg Urine RBC 0 /HPF Urine WBC 0 /HPF Urine Bacteria 0 /HPF Sodium Level 143 mmol/L Potassium Level 4.6 mmol/L Chloride Level 106 mmol/L Carbon Dioxide Level 25 mmol/L Anion Gap 12 Blood Urea Nitrogen 64 mg/dL Creatinine 2.9 mg/dL Estimated GFR (Cockcroft-Gault) 20.8 BUN/Creatinine Ratio 22 Glucose Level 113 mg/dL Calcium Level 8.5 mg/dL Total Bilirubin 0.3 mg/dL Aspartate Amino Transf (AST/SGOT) 16 U/L Alanine Aminotransferase (ALT/SGPT) 26 U/L Alkaline Phosphatase 97 U/L Total Protein 7.0 g/dL Albumin 3.6 g/dL Albumin/Globulin Ratio 1.1 Current Medications Medications (Trade) Dose Ordered Sig/Eve Route PRN Reason Start Time Stop Time Status Last Admin Dose Admin Acetaminophen (Tylenol) 650 mg PRN Q6HRS PRN PO PAIN/FEVER 03/21/21 20:00 04/04/21 03:43 Carvedilol (Coreg) 3.125 mg BIDWMEALS PO 03/22/21 08:00 04/04/21 16:54 Celecoxib (CeleBREX) 50 mg BID PO 03/21/21 21:00 03/23/21 19:59 DC Vitamin D (Vitamin D3) 1,000 unit DAILY PO 03/22/21 09:00 04/04/21 08:54 Hydroxyzine HCl (Atarax Oral Syrup) 10 mg TID PO 03/21/21 21:00 03/21/21 21:55 DC Ibuprofen (Motrin) 200 mg PRN Q6HRS PRN PO INFLAMMATION 03/21/21 21:15 03/24/21 14:54 DC Lorazepam (Ativan) 0.5 mg PRN Q6HRS PRN PO ANXIETY 03/21/21 20:00 03/23/21 14:59 DC 03/23/21 14:03 Melatonin (Melatonin) 3 mg QHS PO 03/21/21 21:00 04/04/21 20:24 Fish Oil (Fish Oil) 1,000 mg DAILY PO 03/22/21 09:00 04/03/21 08:19 Oxybutynin Chloride (Ditropan) 5 mg DAILY PO 03/22/21 09:00 04/04/21 08:54 Polymyxin/ Trimethoprim Sulfate (Polytrim) 1 drop TID OU 03/21/21 21:00 03/23/21 19:59 DC Cyanocobalamin (Vitamin B-12) 1,000 mcg DAILY PO 03/22/21 09:00 04/04/21 08:54 Multivitamins/ Calcium (Thera-M Plus) 1 tab DAILY PO 03/22/21 09:00 04/04/21 08:54 Multivitamins/ Minerals (I-Leland) 1 tab DAILY PO 03/22/21 09:00 04/04/21 08:54 Non-Formulary Medication ([Vitamin D + [place] 3] ) 1 tab DAILY PO 03/22/21 09:00 03/21/21 21:16 DC Hydroxyzine HCl (Atarax) 10 mg TID PO 03/22/21 09:00 03/26/21 16:04 DC 03/26/21 12:07 Acetaminophen (Tylenol) 650 mg PRN Q6HRS PRN PO MILD PAIN / TEMP > 100.3'F 03/22/21 00:30 UNV Multi-Ingredient Ointment (Analgesic [place]) 1 sindi PRN QID PRN TP MUSCLE PAIN 03/22/21 00:30 Al Hydroxide/Mg Hydroxide (Mylanta Plus Xs) 15 ml PRN AFTMEALHC PRN PO DYSPEPSIA 03/22/21 00:30 Magnesium Hydroxide (Milk Of Magnesia) 2,400 mg PRN QHS PRN PO CONSTIPATION 03/22/21 00:30 03/27/21 12:39 Olanzapine (ZyPREXA ZYDIS) 2.5 mg PRN Q2HR PRN PO PSYCHOSIS 03/23/21 15:00 03/29/21 20:44 Sertraline HCl (Zoloft) 25 mg DAILY PO 03/24/21 09:00 03/27/21 08:00 DC 03/26/21 08:34 Sertraline HCl (Zoloft) 50 mg DAILY PO 03/27/21 09:00 04/04/21 08:54 Divalproex Sodium (Depakote) 125 mg DAILY PO 03/25/21 09:00 03/28/21 17:53 DC 03/28/21 08:18 Divalproex Sodium (Depakote Sprinkles) 125 mg DAILYWSUP PO 03/24/21 17:00 03/28/21 17:53 DC 03/28/21 17:29 Medroxyprogesterone Acetate (Provera) 2.5 mg DAILY PO 03/26/21 09:00 03/29/21 15:34 DC 03/29/21 08:31 Hydroxyzine HCl (Atarax) 10 mg BID PO 03/26/21 21:00 03/28/21 23:55 DC 03/28/21 20:45 Quetiapine Fumarate (SEROquel) 12.5 mg 0900,1700 PO 03/27/21 09:00 04/04/21 16:54 Hydroxyzine HCl (Atarax) 10 mg DAILY PO 03/29/21 09:00 03/31/21 09:01 DC 03/31/21 08:29 Divalproex Sodium (Depakote Sprinkles) 250 mg DAILYWSUP PO 03/29/21 17:00 03/31/21 13:11 DC 03/30/21 17:35 Divalproex Sodium (Depakote) 250 mg DAILY PO 03/29/21 09:00 03/31/21 12:56 DC 03/31/21 08:34 Medroxyprogesterone Acetate (Provera) 5 mg DAILY PO 03/30/21 09:00 04/04/21 08:54 Divalproex Sodium (Depakote) 500 mg 0900,1700 PO 03/31/21 17:00 04/04/21 16:54 I have reviewed the current psychotropics carefully including drug interactions. Risk benefit ratio favors no change other than as noted in my dictated progress note. 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
--- NOTE | 2021-04-04 23:36 | NUR ---
Patient is located in the day room on assumption of care, napping on a couch. He awakens easily to name. Compliant with assessments and medications whole. No agitation or sexually inappropriate behavior. Does not appear to be experiencing any pain or discomfort. Cooperative with HS cares. Patient appears to be sleeping comfortably at present time. Will continue to monitor.
[2021-04-05 05:18] VITALS: BP 153/80
--- NOTE | 2021-04-05 07:03 | PDOC ---
Exam Note: Fermin Note: This note is a late entry for 04/04/2021overs elements not covered in my initial note. Subjective: The patient was seen on telehealth rounds in the evening of 04/04/2021 due to COVID-19 exposure on the unit with Yaneth CAICEDO, discussed and reviewed the chart. He slept 7-1/4 hours previous night. Valproic acid level is 19. We will increase the Depakote to 500 mg 9 a.m. and 5 p.m. Check CBC, CMP, valproic acid level in 3 days. He takes his medications floated in pudding. UA is unremarkable. Gait is unsteady. He had elevated BUN and creatinine. We will repeat chemistry profile this evening, for further dehydration and medical management with Dr. Selby. Review of Systems: No CV, , pulmonary, eye, ENT system symptoms on review. Mental Status Exam: The patient is just oriented to himself. Insight and judgment, recent and remote memory, attention and concentration, fund of knowledge is poor consistent with his diagnoses. Laboratory Data: Reviewed. Impression: Major neurocognitive disorder Alzheimer vascular with delusion, depression, behavioral disturbance. Anxiety disorder unspecified. Impulse control disorder unspecified. Plan: Maintain rest of the psychotropics unchanged. We will repeat chemistry profile this evening, for further dehydration and medical management with Dr. Selby. Assessment: Vital Signs/I&O: Vital Signs Date Time Temp Pulse Resp B/P (MAP) Pulse Ox O2 Delivery O2 Flow Rate FiO2 04/05/21 05:18 98.4 66 20 153/80 (104) 96 04/04/21 06:14 Room Air I & O 04/04/21 04/04/21 04/05/21 15:00 23:00 07:00 Intake Total 240 ml 360 ml Balance 240 ml 360 ml Labs: Laboratory Tests Test 04/04/21 18:35 Sodium Level 143 mmol/L (136-145) Potassium Level 4.6 mmol/L (3.5-5.1) Chloride Level 106 mmol/L (98-107) Carbon Dioxide Level 25 mmol/L (21-32) Anion Gap 12 (6-14) Blood Urea Nitrogen 64 mg/dL (8-26) H Creatinine 2.9 mg/dL (0.7-1.3) H Estimated GFR (Cockcroft-Gault) 20.8 BUN/Creatinine Ratio 22 (6-20) H Glucose Level 113 mg/dL (70-99) H Calcium Level 8.5 mg/dL (8.5-10.1) Total Bilirubin 0.3 mg/dL (0.2-1.0) Aspartate Amino Transferase (AST) 16 U/L (15-37) Alanine Aminotransferase (ALT) 26 U/L (16-63) Alkaline Phosphatase 97 U/L (46-116) Total Protein 7.0 g/dL (6.4-8.2) Albumin 3.6 g/dL (3.4-5.0) Albumin/Globulin Ratio 1.1 (1.0-1.7) Current Medications: Meds: Laboratory Tests Test 04/04/21 18:35 Sodium Level 143 mmol/L Potassium Level 4.6 mmol/L Chloride Level 106 mmol/L Carbon Dioxide Level 25 mmol/L Anion Gap 12 Blood Urea Nitrogen 64 mg/dL Creatinine 2.9 mg/dL Estimated GFR (Cockcroft-Gault) 20.8 BUN/Creatinine Ratio 22 Glucose Level 113 mg/dL Calcium Level 8.5 mg/dL Total Bilirubin 0.3 mg/dL Aspartate Amino Transf (AST/SGOT) 16 U/L Alanine Aminotransferase (ALT/SGPT) 26 U/L Alkaline Phosphatase 97 U/L Total Protein 7.0 g/dL Albumin 3.6 g/dL Albumin/Globulin Ratio 1.1 Current Medications Medications (Trade) Dose Ordered Sig/Eve Route PRN Reason Start Time Stop Time Status Last Admin Dose Admin Acetaminophen (Tylenol) 650 mg PRN Q6HRS PRN PO PAIN/FEVER 03/21/21 20:00 04/04/21 03:43 Carvedilol (Coreg) 3.125 mg BIDWMEALS PO 03/22/21 08:00 04/04/21 16:54 Celecoxib (CeleBREX) 50 mg BID PO 03/21/21 21:00 03/23/21 19:59 DC Vitamin D (Vitamin D3) 1,000 unit DAILY PO 03/22/21 09:00 04/04/21 08:54 Hydroxyzine HCl (Atarax Oral Syrup) 10 mg TID PO 03/21/21 21:00 03/21/21 21:55 DC Ibuprofen (Motrin) 200 mg PRN Q6HRS PRN PO INFLAMMATION 03/21/21 21:15 03/24/21 14:54 DC Lorazepam (Ativan) 0.5 mg PRN Q6HRS PRN PO ANXIETY 03/21/21 20:00 03/23/21 14:59 DC 03/23/21 14:03 Melatonin (Melatonin) 3 mg QHS PO 03/21/21 21:00 04/04/21 20:24 Fish Oil (Fish Oil) 1,000 mg DAILY PO 03/22/21 09:00 04/03/21 08:19 Oxybutynin Chloride (Ditropan) 5 mg DAILY PO 03/22/21 09:00 04/04/21 08:54 Polymyxin/ Trimethoprim Sulfate (Polytrim) 1 drop TID OU 03/21/21 21:00 03/23/21 19:59 DC Cyanocobalamin (Vitamin B-12) 1,000 mcg DAILY PO 03/22/21 09:00 04/04/21 08:54 Multivitamins/ Calcium (Thera-M Plus) 1 tab DAILY PO 03/22/21 09:00 04/04/21 08:54 Multivitamins/ Minerals (I-Leland) 1 tab DAILY PO 03/22/21 09:00 04/04/21 08:54 Non-Formulary Medication ([Vitamin D + [place] 3] ) 1 tab DAILY PO 03/22/21 09:00 03/21/21 21:16 DC Hydroxyzine HCl (Atarax) 10 mg TID PO 03/22/21 09:00 03/26/21 16:04 DC 03/26/21 12:07 Acetaminophen (Tylenol) 650 mg PRN Q6HRS PRN PO MILD PAIN / TEMP > 100.3'F 03/22/21 00:30 UNV Multi-Ingredient Ointment (Analgesic [place]) 1 sindi PRN QID PRN TP MUSCLE PAIN 03/22/21 00:30 Al Hydroxide/Mg Hydroxide (Mylanta Plus Xs) 15 ml PRN AFTMEALHC PRN PO DYSPEPSIA 03/22/21 00:30 Magnesium Hydroxide (Milk Of Magnesia) 2,400 mg PRN QHS PRN PO CONSTIPATION 03/22/21 00:30 03/27/21 12:39 Olanzapine (ZyPREXA ZYDIS) 2.5 mg PRN Q2HR PRN PO PSYCHOSIS 03/23/21 15:00 04/05/21 02:16 Sertraline HCl (Zoloft) 25 mg DAILY PO 03/24/21 09:00 03/27/21 08:00 DC 03/26/21 08:34 Sertraline HCl (Zoloft) 50 mg DAILY PO 03/27/21 09:00 04/04/21 08:54 Divalproex Sodium (Depakote) 125 mg DAILY PO 03/25/21 09:00 03/28/21 17:53 DC 03/28/21 08:18 Divalproex Sodium (Depakote Sprinkles) 125 mg DAILYWSUP PO 03/24/21 17:00 03/28/21 17:53 DC 03/28/21 17:29 Medroxyprogesterone Acetate (Provera) 2.5 mg DAILY PO 03/26/21 09:00 03/29/21 15:34 DC 03/29/21 08:31 Hydroxyzine HCl (Atarax) 10 mg BID PO 03/26/21 21:00 03/28/21 23:55 DC 03/28/21 20:45 Quetiapine Fumarate (SEROquel) 12.5 mg 0900,1700 PO 03/27/21 09:00 04/04/21 16:54 Hydroxyzine HCl (Atarax) 10 mg DAILY PO 03/29/21 09:00 03/31/21 09:01 DC 03/31/21 08:29 Divalproex Sodium (Depakote Sprinkles) 250 mg DAILYWSUP PO 03/29/21 17:00 03/31/21 13:11 DC 03/30/21 17:35 Divalproex Sodium (Depakote) 250 mg DAILY PO 03/29/21 09:00 03/31/21 12:56 DC 03/31/21 08:34 Medroxyprogesterone Acetate (Provera) 5 mg DAILY PO 03/30/21 09:00 04/04/21 08:54 Divalproex Sodium (Depakote) 500 mg 0900,1700 PO 03/31/21 17:00 04/04/21 16:54 I have reviewed the current psychotropics carefully including drug interactions. Risk benefit ratio favors no change other than as noted in my dictated progress note. Diagnosis: Problems: (1) Impulse control disorder, unspecified (2) Anxiety disorder, unspecified (3) Dementia, vascular, with depression (4) Dementia, vascular, with delusions (5) Dementia in Alzheimer's disease with depression (6) Dementia in Alzheimer's disease with delusions (7) Dementia of the Alzheimer's type with early onset with behavioral disturbance (8) Major neurocognitive disorder ALFREDO HARDIN MD Apr 05, 2021 07:03
[2021-04-05] MEDS: MULTIVITAMIN I-VITE TABLET. PO SCH (09:04)
[2021-04-05] MEDS: CYANOCOBALAMIN (VITAMIN B-12) 1,000 MCG TABLET. PO SCH (09:04)
[2021-04-05] MEDS: CHOLECALCIFEROL (VITAMIN D3) 1,000 UNIT TABLET PO SCH (09:04)
[2021-04-05] MEDS: MULTIVITAMIN with MINERAL TABLET. PO SCH (09:04)
[2021-04-05] MEDS: CARVEDILOL 3.125 MG TABLET PO SCH ×2 (09:04→17:10)
[2021-04-05] MEDS: DIVALPROEX SODIUM 250 MG TABLET.DR. PO SCH ×2 (09:04→17:09)
[2021-04-05] MEDS: SERTRALINE 50 MG TABLET. PO SCH (09:04)
[2021-04-05] MEDS: medroxyPROGESTERone 5 MG TABLET PO SCH (09:05)
[2021-04-05] MEDS: OMEGA-3 FATTY ACIDS/FISH OIL 1,000 MG CAPSULE. PO SCH (09:05)
[2021-04-05] MEDS: QUEtiapine 25 MG TABLET. PO SCH ×2 (09:05→17:10)
[2021-04-05] MEDS: OXYBUTYNIN CHLORIDE 5 MG TABLET PO SCH (09:06)
[2021-04-05 16:01] VITALS: BP 167/80
--- NOTE | 2021-04-05 17:24 | NUR ---
ns note; josé has been calm and md compliant today. he takes his meds whole, floated on pudding or applesauce and spooned to him. he has been alert and responds in one or two word statements which are mostly not on subject. he spent the am in the dayroom and took a short nap. he watched olympic soccer at diner which he seemed to enjoy
[2021-04-05] MEDS: MELATONIN 3 MG TABLET PO SCH (19:56)
--- NOTE | 2021-04-05 21:29 | NUR ---
Patient is located in the day room on assumption of care, sitting in his chair watching television. He is disorganized, confused. Compliant with assessments and medications whole. No agitation or sexually inappropriate behavior. Patient states that he feels "blah" but can't elaborate on details. Cooperative with HS cares. Patient appears to be sleeping comfortably at present time. Will continue to monitor.
[2021-04-06 05:49] VITALS: BP 132/63
[2021-04-06] MEDS: medroxyPROGESTERone 5 MG TABLET PO SCH (09:37)
[2021-04-06] MEDS: DIVALPROEX SODIUM 250 MG TABLET.DR. PO SCH ×2 (09:40→17:22)
[2021-04-06] MEDS: MULTIVITAMIN with MINERAL TABLET. PO SCH (09:40)
[2021-04-06] MEDS: CARVEDILOL 3.125 MG TABLET PO SCH ×2 (09:41→17:00)
[2021-04-06] MEDS: OMEGA-3 FATTY ACIDS/FISH OIL 1,000 MG CAPSULE. PO SCH (09:43)
[2021-04-06] MEDS: CYANOCOBALAMIN (VITAMIN B-12) 1,000 MCG TABLET. PO SCH (09:43)
[2021-04-06] MEDS: SERTRALINE 50 MG TABLET. PO SCH (09:44)
[2021-04-06] MEDS: CHOLECALCIFEROL (VITAMIN D3) 1,000 UNIT TABLET PO SCH (09:44)
[2021-04-06] MEDS: QUEtiapine 25 MG TABLET. PO SCH ×2 (09:44→17:22)
[2021-04-06] MEDS: MULTIVITAMIN I-VITE TABLET. PO SCH (09:44)
[2021-04-06] MEDS: OXYBUTYNIN CHLORIDE 5 MG TABLET PO SCH (09:45)
--- NOTE | 2021-04-06 13:55 | NUR ---
Nursing Note Pt alert to self, pleasantly confused. Wheels around the unit in a wheel chair no agitation or anger. Denies complaints, can speak some but most is in a word salad.
[2021-04-06 15:45] VITALS: BP 132/82
[2021-04-06] MEDS: MELATONIN 3 MG TABLET PO SCH (19:50)
--- NOTE | 2021-04-06 21:19 | NUR ---
Patient is located in his room on assumption of care, awake in bed. Compliant with assessments and medications whole. No agitation or sexually inappropriate behavior. Does not appear to be experiencing any pain or discomfort. Cooperative with HS cares. Patient appears to be sleeping comfortably at present time. Will continue to monitor.
--- NOTE | 2021-04-06 22:01 | PDOC ---
Exam Note: Fermin Note: Please also refer to the separate dictated note~for this date of service dictated separately.~Patient seen individually. Discussed the patient with Nursing staff reviewed the chart.~Reviewed interim history and current functioning. Reviewed vital signs,~Labs/ Radiology~and current medications noted below. Continue current treatment with the changes noted in the dictated addendum note Assessment: Vital Signs/I&O: Vital Signs Date Time Temp Pulse Resp B/P (MAP) Pulse Ox O2 Delivery O2 Flow Rate FiO2 04/06/21 17:00 51 132/82 04/06/21 15:45 97.8 16 98 04/04/21 06:14 Room Air I & O 04/05/21 04/05/21 04/06/21 15:00 23:00 07:00 Intake Total 600 ml 480 ml Balance 600 ml 480 ml Current Medications: Meds: Current Medications Medications (Trade) Dose Ordered Sig/Eve Route PRN Reason Start Time Stop Time Status Last Admin Dose Admin Acetaminophen (Tylenol) 650 mg PRN Q6HRS PRN PO PAIN/FEVER 03/21/21 20:00 04/04/21 03:43 Carvedilol (Coreg) 3.125 mg BIDWMEALS PO 03/22/21 08:00 04/06/21 17:00 Celecoxib (CeleBREX) 50 mg BID PO 03/21/21 21:00 03/23/21 19:59 DC Vitamin D (Vitamin D3) 1,000 unit DAILY PO 03/22/21 09:00 04/06/21 09:44 Hydroxyzine HCl (Atarax Oral Syrup) 10 mg TID PO 03/21/21 21:00 03/21/21 21:55 DC Ibuprofen (Motrin) 200 mg PRN Q6HRS PRN PO INFLAMMATION 03/21/21 21:15 03/24/21 14:54 DC Lorazepam (Ativan) 0.5 mg PRN Q6HRS PRN PO ANXIETY 03/21/21 20:00 03/23/21 14:59 DC 03/23/21 14:03 Melatonin (Melatonin) 3 mg QHS PO 03/21/21 21:00 04/06/21 19:50 Fish Oil (Fish Oil) 1,000 mg DAILY PO 03/22/21 09:00 04/06/21 09:43 Oxybutynin Chloride (Ditropan) 5 mg DAILY PO 03/22/21 09:00 04/06/21 09:45 Polymyxin/ Trimethoprim Sulfate (Polytrim) 1 drop TID OU 03/21/21 21:00 03/23/21 19:59 DC Cyanocobalamin (Vitamin B-12) 1,000 mcg DAILY PO 03/22/21 09:00 04/06/21 09:43 Multivitamins/ Calcium (Thera-M Plus) 1 tab DAILY PO 03/22/21 09:00 04/06/21 09:40 Multivitamins/ Minerals (I-[place]) 1 tab DAILY PO 03/22/21 09:00 04/06/21 09:44 Non-Formulary Medication ([Vitamin D + [place] 3] ) 1 tab DAILY PO 03/22/21 09:00 03/21/21 21:16 DC Hydroxyzine HCl (Atarax) 10 mg TID PO 03/22/21 09:00 03/26/21 16:04 DC 03/26/21 12:07 Acetaminophen (Tylenol) 650 mg PRN Q6HRS PRN PO MILD PAIN / TEMP > 100.3'F 03/22/21 00:30 UNV Multi-Ingredient Ointment (Analgesic [place]) 1 sindi PRN QID PRN TP MUSCLE PAIN 03/22/21 00:30 Al Hydroxide/Mg Hydroxide (Mylanta Plus Xs) 15 ml PRN AFTMEALHC PRN PO DYSPEPSIA 03/22/21 00:30 Magnesium Hydroxide (Milk Of Magnesia) 2,400 mg PRN QHS PRN PO CONSTIPATION 03/22/21 00:30 03/27/21 12:39 Olanzapine (ZyPREXA ZYDIS) 2.5 mg PRN Q2HR PRN PO PSYCHOSIS 03/23/21 15:00 04/05/21 02:16 Sertraline HCl (Zoloft) 25 mg DAILY PO 03/24/21 09:00 03/27/21 08:00 DC 03/26/21 08:34 Sertraline HCl (Zoloft) 50 mg DAILY PO 03/27/21 09:00 04/06/21 09:44 Divalproex Sodium (Depakote) 125 mg DAILY PO 03/25/21 09:00 03/28/21 17:53 DC 03/28/21 08:18 Divalproex Sodium (Depakote Sprinkles) 125 mg DAILYWSUP PO 03/24/21 17:00 03/28/21 17:53 DC 03/28/21 17:29 Medroxyprogesterone Acetate (Provera) 2.5 mg DAILY PO 03/26/21 09:00 03/29/21 15:34 DC 03/29/21 08:31 Hydroxyzine HCl (Atarax) 10 mg BID PO 03/26/21 21:00 03/28/21 23:55 DC 03/28/21 20:45 Quetiapine Fumarate (SEROquel) 12.5 mg 0900,1700 PO 03/27/21 09:00 04/06/21 17:22 Hydroxyzine HCl (Atarax) 10 mg DAILY PO 03/29/21 09:00 03/31/21 09:01 DC 03/31/21 08:29 Divalproex Sodium (Depakote Sprinkles) 250 mg DAILYWSUP PO 03/29/21 17:00 03/31/21 13:11 DC 03/30/21 17:35 Divalproex Sodium (Depakote) 250 mg DAILY PO 03/29/21 09:00 03/31/21 12:56 DC 03/31/21 08:34 Medroxyprogesterone Acetate (Provera) 5 mg DAILY PO 03/30/21 09:00 04/06/21 09:37 Divalproex Sodium (Depakote) 500 mg 0900,1700 PO 03/31/21 17:00 04/06/21 17:22 I have reviewed the current psychotropics carefully including drug interactions. Risk benefit ratio favors no change other than as noted in my dictated progress note. Diagnosis: Problems: (1) Impulse control disorder, unspecified (2) Anxiety disorder, unspecified (3) Dementia, vascular, with depression (4) Dementia, vascular, with delusions (5) Dementia in Alzheimer's disease with depression (6) Dementia in Alzheimer's disease with delusions (7) Dementia of the Alzheimer's type with early onset with behavioral disturbance (8) Major neurocognitive disorder ALFREDO HARDIN MD Apr 06, 2021 22:00
[2021-04-07 06:16] VITALS: BP 141/84
[2021-04-07] MEDS: CARVEDILOL 3.125 MG TABLET PO SCH ×2 (08:07→17:00)
[2021-04-07] MEDS: medroxyPROGESTERone 5 MG TABLET PO SCH (08:08)
[2021-04-07] MEDS: QUEtiapine 25 MG TABLET. PO SCH ×2 (08:08→17:00)
[2021-04-07] MEDS: MULTIVITAMIN I-VITE TABLET. PO SCH (08:08)
[2021-04-07] MEDS: MULTIVITAMIN with MINERAL TABLET. PO SCH (08:08)
[2021-04-07] MEDS: CYANOCOBALAMIN (VITAMIN B-12) 1,000 MCG TABLET. PO SCH (08:08)
[2021-04-07] MEDS: OMEGA-3 FATTY ACIDS/FISH OIL 1,000 MG CAPSULE. PO SCH (08:08)
[2021-04-07] MEDS: OXYBUTYNIN CHLORIDE 5 MG TABLET PO SCH (08:08)
[2021-04-07] MEDS: CHOLECALCIFEROL (VITAMIN D3) 1,000 UNIT TABLET PO SCH (08:08)
[2021-04-07] MEDS: SERTRALINE 50 MG TABLET. PO SCH (08:08)
[2021-04-07] MEDS: DIVALPROEX SODIUM 250 MG TABLET.DR. PO SCH ×2 (08:08→17:00)
--- NOTE | 2021-04-07 09:08 | NUR ---
THOMAS received call from [facility] who wanted to follow up on the insurance review on Wednesday. With pt having no behaviors noted (e.g. no aggression, no behaviors) pt would need to discharge [facility]. THOMAS informed the [facility] rep that his facility would like 24 hour notice and THOMAS would call the facility to finalize that arrangement. [facility] has asked for THOMAS to call THOMAS back with the plans.
--- NOTE | 2021-04-07 13:02 | NUR ---
WEEKLY ACTIVITY THERAPY NOTE Date of Admission:03/21/21 Date of AT Assessment: 03/24 Precipitating behaviors that initiated intake and admission: Aggressive towards staff, combative, reports SI with no plan, thinks he has been kidnapped and that people are going to kill him. Goal aimed: increase stress management and relaxation skills Initial Goal: pt will participate in at least five individual or group Activity Therapy sessions before discharge. Weekly progress towards goal: achieved (03/26:snacks and exercise, 03/26: songs and states, 03/28:olympic ceremony democrat, 03/31-flexibility and music request, 04/01-flexibility and grid categories, 04/02-songs across the decades) Group participation level: 2 min 1 full Weekly highlights: square dancing Wednesday, some exercises Wednesday morning Behaviors observed: calm and pleasant, minimal prompting needed Plan: change goal to: Pt will participate in at least three individual or group Activity Therapy sessions per week. Beneficial adaptations: dancing and music
--- NOTE | 2021-04-07 14:41 | NUR ---
Nursing Note Pt irritable spat out some meds, alert to self. Aggressive a bit with adls, refused lunch initially but then got up and ate in the hallway. Sitting in chair in up and is social with the sliver cutter.
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
[2021-04-07 15:55] VITALS: BP 131/83
--- NOTE | 2021-04-07 16:50 | NUR ---
THOMAS, nursing, psychiatry and pt son Jim re-convened for a short treatment team meeting as SW did not call him earlier. Pt son is very concerned about his medications and wanted to make sure that they were suffice for pt when discharged. He and his family are concerned about what side effects to look for and questioned if a specialist should follow up with pt. THOMAS informed Jim that pt would need to first look at if he has a provider under insurance who would be covered and then mentioned the fact that pt facility may have someone they work with. Dr. Almazan mentioned that if the facility physician is comfortable, they are more than welcome to follow the medications as well. Pt son also questioned pt good days versus bad days as when on the phone, he was not able to fully have a conversation with him. He wanted to clarify if his bad days depended on the medications or if it is due to his declining cognition. THOMAS informed all parties that pt insurance has capped pt stay for . THOMAS will follow up with [facility] at [facility] re: discharge and get back to Jim with those plans.
[2021-04-07] MEDS: MELATONIN 3 MG TABLET PO SCH (20:19)
--- NOTE | 2021-04-07 21:50 | PDOC ---
Exam Note: Fermin Note: Please also refer to the separate dictated note~for this date of service dictated separately.~Patient seen individually. Discussed the patient with Nursing staff reviewed the chart.~Reviewed interim history and current functioning. Reviewed vital signs,~Labs/ Radiology~and current medications noted below. Continue current treatment with the changes noted in the dictated addendum note Assessment: Vital Signs/I&O: Vital Signs Date Time Temp Pulse Resp B/P (MAP) Pulse Ox O2 Delivery O2 Flow Rate FiO2 04/07/21 17:00 62 131/83 04/07/21 15:55 98.7 16 96 04/04/21 06:14 Room Air I & O 04/06/21 04/06/21 04/07/21 15:00 23:00 07:00 Intake Total 600 ml 600 ml Balance 600 ml 600 ml Current Medications: Meds: Current Medications Medications (Trade) Dose Ordered Sig/Eve Route PRN Reason Start Time Stop Time Status Last Admin Dose Admin Acetaminophen (Tylenol) 650 mg PRN Q6HRS PRN PO PAIN/FEVER 03/21/21 20:00 04/04/21 03:43 Carvedilol (Coreg) 3.125 mg BIDWMEALS PO 03/22/21 08:00 04/07/21 17:00 Celecoxib (CeleBREX) 50 mg BID PO 03/21/21 21:00 03/23/21 19:59 DC Vitamin D (Vitamin D3) 1,000 unit DAILY PO 03/22/21 09:00 04/07/21 08:08 Hydroxyzine HCl (Atarax Oral Syrup) 10 mg TID PO 03/21/21 21:00 03/21/21 21:55 DC Ibuprofen (Motrin) 200 mg PRN Q6HRS PRN PO INFLAMMATION 03/21/21 21:15 03/24/21 14:54 DC Lorazepam (Ativan) 0.5 mg PRN Q6HRS PRN PO ANXIETY 03/21/21 20:00 03/23/21 14:59 DC 03/23/21 14:03 Melatonin (Melatonin) 3 mg QHS PO 03/21/21 21:00 04/07/21 20:19 Fish Oil (Fish Oil) 1,000 mg DAILY PO 03/22/21 09:00 04/07/21 08:08 Oxybutynin Chloride (Ditropan) 5 mg DAILY PO 03/22/21 09:00 04/07/21 08:08 Polymyxin/ Trimethoprim Sulfate (Polytrim) 1 drop TID OU 03/21/21 21:00 03/23/21 19:59 DC Cyanocobalamin (Vitamin B-12) 1,000 mcg DAILY PO 03/22/21 09:00 04/07/21 08:08 Multivitamins/ Calcium (Thera-M Plus) 1 tab DAILY PO 03/22/21 09:00 04/07/21 08:08 Multivitamins/ Minerals (I-Leland) 1 tab DAILY PO 03/22/21 09:00 04/07/21 08:08 Non-Formulary Medication ([Vitamin D + [place] 3] ) 1 tab DAILY PO 03/22/21 09:00 03/21/21 21:16 DC Hydroxyzine HCl (Atarax) 10 mg TID PO 03/22/21 09:00 03/26/21 16:04 DC 03/26/21 12:07 Acetaminophen (Tylenol) 650 mg PRN Q6HRS PRN PO MILD PAIN / TEMP > 100.3'F 03/22/21 00:30 UNV Multi-Ingredient Ointment (Analgesic [place]) 1 sindi PRN QID PRN TP MUSCLE PAIN 03/22/21 00:30 Al Hydroxide/Mg Hydroxide (Mylanta Plus Xs) 15 ml PRN AFTMEALHC PRN PO DYSPEPSIA 03/22/21 00:30 Magnesium Hydroxide (Milk Of Magnesia) 2,400 mg PRN QHS PRN PO CONSTIPATION 03/22/21 00:30 03/27/21 12:39 Olanzapine (ZyPREXA ZYDIS) 2.5 mg PRN Q2HR PRN PO PSYCHOSIS 03/23/21 15:00 04/05/21 02:16 Sertraline HCl (Zoloft) 25 mg DAILY PO 03/24/21 09:00 03/27/21 08:00 DC 03/26/21 08:34 Sertraline HCl (Zoloft) 50 mg DAILY PO 03/27/21 09:00 04/07/21 08:08 Divalproex Sodium (Depakote) 125 mg DAILY PO 03/25/21 09:00 03/28/21 17:53 DC 03/28/21 08:18 Divalproex Sodium (Depakote Sprinkles) 125 mg DAILYWSUP PO 03/24/21 17:00 03/28/21 17:53 DC 03/28/21 17:29 Medroxyprogesterone Acetate (Provera) 2.5 mg DAILY PO 03/26/21 09:00 03/29/21 15:34 DC 03/29/21 08:31 Hydroxyzine HCl (Atarax) 10 mg BID PO 03/26/21 21:00 03/28/21 23:55 DC 03/28/21 20:45 Quetiapine Fumarate (SEROquel) 12.5 mg 0900,1700 PO 03/27/21 09:00 04/07/21 17:00 Hydroxyzine HCl (Atarax) 10 mg DAILY PO 03/29/21 09:00 03/31/21 09:01 DC 03/31/21 08:29 Divalproex Sodium (Depakote Sprinkles) 250 mg DAILYWSUP PO 03/29/21 17:00 03/31/21 13:11 DC 03/30/21 17:35 Divalproex Sodium (Depakote) 250 mg DAILY PO 03/29/21 09:00 03/31/21 12:56 DC 03/31/21 08:34 Medroxyprogesterone Acetate (Provera) 5 mg DAILY PO 03/30/21 09:00 04/07/21 08:08 Divalproex Sodium (Depakote) 500 mg 0900,1700 PO 03/31/21 17:00 04/07/21 17:00 I have reviewed the current psychotropics carefully including drug interactions. Risk benefit ratio favors no change other than as noted in my dictated progress note. 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
--- NOTE | 2021-04-07 22:55 | NUR ---
Pt withdrawn to his room, lying in bed when approached. Pt calm, confused, and interactive during encounter. Pt cooperative with assessment and compliant with medications administered whole. No agitation or aggression noted thus far this shift.
[2021-04-08 05:46] VITALS: BP 156/70
[2021-04-08 06:21] LABS: BASO # 0.1 x10^3/uL (0.0-0.2); BASO % 1 % (0-3); EOS # 0.2 x10^3/uL (0.0-0.7); EOS % 4 % (0-3); HEMATOCRIT 34.7 % (39.0-53.0); HEMOGLOBIN 11.5 g/dL (13.0-17.5); LYMPH # 2.1 x10^3/uL (1.0-4.8); LYMPH % 34 % (24-48); MEAN CORPUSCULAR HEMOGLOBIN 32 pg (25-35); MEAN CORPUSCULAR HGB CONC 33 g/dL (31-37); MEAN CORPUSCULAR VOLUME 95 fL (79-100); MONO # 0.7 x10^3/uL (0.0-1.1); MONO % 12 % (0-9); NEUT % 49 % (31-73); PLATELET COUNT 164 x10^3/uL (140-400); RED BLOOD COUNT 3.66 x10^6/uL (4.30-5.70); RED CELL DISTRIBUTION WIDTH 12.8 % (11.5-14.5); WHITE BLOOD COUNT 6.2 x10^3/uL (4.0-11.0)
[2021-04-08 06:38] LABS: ALBUMIN 3.5 g/dL (3.4-5.0); ALBUMIN/GLOBULIN RATIO 0.9 (1.0-1.7); ALK PHOS 104 U/L (46-116); ALT (SGPT) 28 U/L (16-63); ANION GAP 14 (6-14); AST (SGOT) 18 U/L (15-37); BLOOD UREA NITROGEN 57 mg/dL (8-26); BUN/CREATININE RATIO 20 (6-20); CALCIUM 8.9 mg/dL (8.5-10.1); CARBON DIOXIDE 24 mmol/L (21-32); CHLORIDE 108 mmol/L (98-107); CREATININE 2.9 mg/dL (0.7-1.3); GFR 20.8; GLUCOSE 98 mg/dL (70-99); POTASSIUM 4.2 mmol/L (3.5-5.1); SODIUM 146 mmol/L (136-145); TOTAL BILIRUBIN 0.3 mg/dL (0.2-1.0); TOTAL PROTEIN 7.2 g/dL (6.4-8.2)
[2021-04-08 06:46] LABS: VAL ACID 33 mcg/mL (50-100)
--- NOTE | 2021-04-08 07:27 | PDOC ---
Exam Note: Fermin Note: This note is a late entry for 04/06/2021overs elements not covered in my initial note. Subjective: The patient was seen on telehealth rounds in the evening of 04/06/2021 due to COVID-19 exposure on the unit with Abi CAICEDO, discussed and reviewed the chart. He slept 6-1/2 hours previous night. The patient remains somewhat irritable at times. He had slept in for breakfast. He is okay till about 3 p.m., then was arguing with staff members due to some toileting related matters. Review of Systems: No CV, , pulmonary, eye, ENT system symptoms on review. Reliability poor. Mental Status Exam: The patient is just oriented to himself. Insight and judgment, recent and remote memory, attention and concentration, fund of knowledge is poor consistent with his diagnoses. Laboratory Data: Reviewed. Impression: Major neurocognitive disorder Alzheimer vascular with delusion, depression, behavioral disturbance. Anxiety disorder unspecified. Impulse control disorder unspecified. Plan: Maintain rest of the psychotropics unchanged. Assessment: Vital Signs/I&O: Vital Signs Date Time Temp Pulse Resp B/P (MAP) Pulse Ox O2 Delivery O2 Flow Rate FiO2 04/08/21 05:46 98.2 57 18 156/70 (98) 96 Room Air I & O 04/07/21 04/07/21 04/08/21 14:59 22:59 06:59 Intake Total 480 ml 360 ml Balance 480 ml 360 ml Labs: Laboratory Tests Test 04/08/21 06:06 White Blood Count 6.2 x10^3/uL (4.0-11.0) Red Blood Count 3.66 x10^6/uL (4.30-5.70) L Hemoglobin 11.5 g/dL (13.0-17.5) L Hematocrit 34.7 % (39.0-53.0) L Mean Corpuscular Volume 95 fL (79-100) Mean Corpuscular Hemoglobin 32 pg (25-35) Mean Corpuscular Hemoglobin Concent 33 g/dL (31-37) Red Cell Distribution Width 12.8 % (11.5-14.5) Platelet Count 164 x10^3/uL (140-400) Neutrophils (%) (Auto) 49 % (31-73) Lymphocytes (%) (Auto) 34 % (24-48) Monocytes (%) (Auto) 12 % (0-9) H Eosinophils (%) (Auto) 4 % (0-3) H Basophils (%) (Auto) 1 % (0-3) Neutrophils # (Auto) 3.0 x10^3uL (1.8-7.7) Lymphocytes # (Auto) 2.1 x10^3/uL (1.0-4.8) Monocytes # (Auto) 0.7 x10^3/uL (0.0-1.1) Eosinophils # (Auto) 0.2 x10^3/uL (0.0-0.7) Basophils # (Auto) 0.1 x10^3/uL (0.0-0.2) Sodium Level 146 mmol/L (136-145) H Potassium Level 4.2 mmol/L (3.5-5.1) Chloride Level 108 mmol/L (98-107) H Carbon Dioxide Level 24 mmol/L (21-32) Anion Gap 14 (6-14) Blood Urea Nitrogen 57 mg/dL (8-26) H Creatinine 2.9 mg/dL (0.7-1.3) H Estimated GFR (Cockcroft-Gault) 20.8 BUN/Creatinine Ratio 20 (6-20) Glucose Level 98 mg/dL (70-99) Calcium Level 8.9 mg/dL (8.5-10.1) Total Bilirubin 0.3 mg/dL (0.2-1.0) Aspartate Amino Transferase (AST) 18 U/L (15-37) Alanine Aminotransferase (ALT) 28 U/L (16-63) Alkaline Phosphatase 104 U/L (46-116) Total Protein 7.2 g/dL (6.4-8.2) Albumin 3.5 g/dL (3.4-5.0) Albumin/Globulin Ratio 0.9 (1.0-1.7) L Valproic Acid Level 33 mcg/mL (50-100) L Valproic Acid Last Dose Date 04/07/21 Valproic Acid Last Dose Time 1700 Current Medications: Meds: Laboratory Tests Test 04/08/21 06:06 White Blood Count 6.2 x10^3/uL Red Blood Count 3.66 x10^6/uL Hemoglobin 11.5 g/dL Hematocrit 34.7 % Mean Corpuscular Volume 95 fL Mean Corpuscular Hemoglobin 32 pg Mean Corpuscular Hemoglobin Concent 33 g/dL Red Cell Distribution Width 12.8 % Platelet Count 164 x10^3/uL Neutrophils (%) (Auto) 49 % Lymphocytes (%) (Auto) 34 % Monocytes (%) (Auto) 12 % Eosinophils (%) (Auto) 4 % Basophils (%) (Auto) 1 % Neutrophils # (Auto) 3.0 x10^3uL Lymphocytes # (Auto) 2.1 x10^3/uL Monocytes # (Auto) 0.7 x10^3/uL Eosinophils # (Auto) 0.2 x10^3/uL Basophils # (Auto) 0.1 x10^3/uL Sodium Level 146 mmol/L Potassium Level 4.2 mmol/L Chloride Level 108 mmol/L Carbon Dioxide Level 24 mmol/L Anion Gap 14 Blood Urea Nitrogen 57 mg/dL Creatinine 2.9 mg/dL Estimated GFR (Cockcroft-Gault) 20.8 BUN/Creatinine Ratio 20 Glucose Level 98 mg/dL Calcium Level 8.9 mg/dL Total Bilirubin 0.3 mg/dL Aspartate Amino Transf (AST/SGOT) 18 U/L Alanine Aminotransferase (ALT/SGPT) 28 U/L Alkaline Phosphatase 104 U/L Total Protein 7.2 g/dL Albumin 3.5 g/dL Albumin/Globulin Ratio 0.9 Valproic Acid (Depakene) Level 33 mcg/mL Valproic Acid Last Dose Date 04/07/21 Valproic Acid Last Dose Time 1700 Current Medications Medications (Trade) Dose Ordered Sig/Eve Route PRN Reason Start Time Stop Time Status Last Admin Dose Admin Acetaminophen (Tylenol) 650 mg PRN Q6HRS PRN PO PAIN/FEVER 03/21/21 20:00 04/04/21 03:43 Carvedilol (Coreg) 3.125 mg BIDWMEALS PO 03/22/21 08:00 04/07/21 17:00 Celecoxib (CeleBREX) 50 mg BID PO 03/21/21 21:00 03/23/21 19:59 DC Vitamin D (Vitamin D3) 1,000 unit DAILY PO 03/22/21 09:00 04/07/21 08:08 Hydroxyzine HCl (Atarax Oral Syrup) 10 mg TID PO 03/21/21 21:00 03/21/21 21:55 DC Ibuprofen (Motrin) 200 mg PRN Q6HRS PRN PO INFLAMMATION 03/21/21 21:15 03/24/21 14:54 DC Lorazepam (Ativan) 0.5 mg PRN Q6HRS PRN PO ANXIETY 03/21/21 20:00 03/23/21 14:59 DC 03/23/21 14:03 Melatonin (Melatonin) 3 mg QHS PO 03/21/21 21:00 04/07/21 20:19 Fish Oil (Fish Oil) 1,000 mg DAILY PO 03/22/21 09:00 04/07/21 08:08 Oxybutynin Chloride (Ditropan) 5 mg DAILY PO 03/22/21 09:00 04/07/21 08:08 Polymyxin/ Trimethoprim Sulfate (Polytrim) 1 drop TID OU 03/21/21 21:00 03/23/21 19:59 DC Cyanocobalamin (Vitamin B-12) 1,000 mcg DAILY PO 03/22/21 09:00 04/07/21 08:08 Multivitamins/ Calcium (Thera-M Plus) 1 tab DAILY PO 03/22/21 09:00 04/07/21 08:08 Multivitamins/ Minerals (I-[place]) 1 tab DAILY PO 03/22/21 09:00 04/07/21 08:08 Non-Formulary Medication ([Vitamin D + [place] 3] ) 1 tab DAILY PO 03/22/21 09:00 03/21/21 21:16 DC Hydroxyzine HCl (Atarax) 10 mg TID PO 03/22/21 09:00 03/26/21 16:04 DC 03/26/21 12:07 Acetaminophen (Tylenol) 650 mg PRN Q6HRS PRN PO MILD PAIN / TEMP > 100.3'F 03/22/21 00:30 UNV Multi-Ingredient Ointment (Analgesic [place]) 1 sindi PRN QID PRN TP MUSCLE PAIN 03/22/21 00:30 Al Hydroxide/Mg Hydroxide (Mylanta Plus Xs) 15 ml PRN AFTMEALHC PRN PO DYSPEPSIA 03/22/21 00:30 Magnesium Hydroxide (Milk Of Magnesia) 2,400 mg PRN QHS PRN PO CONSTIPATION 03/22/21 00:30 03/27/21 12:39 Olanzapine (ZyPREXA ZYDIS) 2.5 mg PRN Q2HR PRN PO PSYCHOSIS 03/23/21 15:00 04/05/21 02:16 Sertraline HCl (Zoloft) 25 mg DAILY PO 03/24/21 09:00 03/27/21 08:00 DC 03/26/21 08:34 Sertraline HCl (Zoloft) 50 mg DAILY PO 03/27/21 09:00 04/07/21 08:08 Divalproex Sodium (Depakote) 125 mg DAILY PO 03/25/21 09:00 03/28/21 17:53 DC 03/28/21 08:18 Divalproex Sodium (Depakote Sprinkles) 125 mg DAILYWSUP PO 03/24/21 17:00 03/28/21 17:53 DC 03/28/21 17:29 Medroxyprogesterone Acetate (Provera) 2.5 mg DAILY PO 03/26/21 09:00 03/29/21 15:34 DC 03/29/21 08:31 Hydroxyzine HCl (Atarax) 10 mg BID PO 03/26/21 21:00 03/28/21 23:55 DC 03/28/21 20:45 Quetiapine Fumarate (SEROquel) 12.5 mg 0900,1700 PO 03/27/21 09:00 04/07/21 17:00 Hydroxyzine HCl (Atarax) 10 mg DAILY PO 03/29/21 09:00 03/31/21 09:01 DC 03/31/21 08:29 Divalproex Sodium (Depakote Sprinkles) 250 mg DAILYWSUP PO 03/29/21 17:00 03/31/21 13:11 DC 03/30/21 17:35 Divalproex Sodium (Depakote) 250 mg DAILY PO 03/29/21 09:00 03/31/21 12:56 DC 03/31/21 08:34 Medroxyprogesterone Acetate (Provera) 5 mg DAILY PO 03/30/21 09:00 04/07/21 08:08 Divalproex Sodium (Depakote) 500 mg 0900,1700 PO 03/31/21 17:00 8/2/21 17:00 I have reviewed the current psychotropics carefully including drug interactions. Risk benefit ratio favors no change other than as noted in my dictated progress note. 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
--- NOTE | 2021-04-08 07:42 | PDOC ---
Exam Note: Fermin Note: This note is a late entry for 04/07/2021overs elements not covered in my initial note. Subjective: The patient was reviewed at treatment team meeting on telehealth rounds in the morning on 04/07/2021 with Virgen Muñiz, Sue Jones (manager social media), [place], activity therapy and Teena CAICEDO, discussed and reviewed the chart. He slept 9-1/2 hours previous night. Average appetite 80%. Reviewed the patients history, diagnoses, progress. At times he gets somewhat agitated at one point he was kicking staff but recently over the past several days, he has been much more stable. He has attended 3 groups in the past one week. Later in the evening we had another treatment team with entire team as the patients son Jim was able to attend at this time. We again had discussion about the patients diagnoses and progress. Jim had many questions about patients psychotropic medications, prognosis, outpatient psychiatry, follow ups all of which we addressed. Review of Systems: No CV, , pulmonary, eye, ENT system symptoms on review. Reliability poor. Mental Status Exam: The patient is just oriented to himself. Insight and judgment, recent and remote memory, attention and concentration, fund of knowledge is poor consistent with his diagnoses. Laboratory Data: Reviewed. Impression: Major neurocognitive disorder Alzheimer vascular with delusion, depression, behavioral disturbance. Anxiety disorder unspecified. Impulse control disorder unspecified. Plan: Continue current psychotropics. Discussed risk-benefit ratio and potential side effects and discharge plans. I have discussed with Jim about the patients low dose Seroquel 12.5 mg twice a day, melatonin for sleep, Zoloft as an anti-anxiety/anti-depressant to additionally help with his agitation and ruminative behaviors and Depakote as a mood stabilizer. He has shown no sexually inappropriate behaviors for several days and is tolerating the Provera 5 mg a day. Assessment: Vital Signs/I&O: Vital Signs Date Time Temp Pulse Resp B/P (MAP) Pulse Ox O2 Delivery O2 Flow Rate FiO2 04/08/21 05:46 98.2 57 18 156/70 (98) 96 Room Air I & O 04/07/21 04/07/21 04/08/21 15:00 23:00 07:00 Intake Total 480 ml 360 ml Balance 480 ml 360 ml Labs: Laboratory Tests Test 04/08/21 06:06 White Blood Count 6.2 x10^3/uL (4.0-11.0) Red Blood Count 3.66 x10^6/uL (4.30-5.70) L Hemoglobin 11.5 g/dL (13.0-17.5) L Hematocrit 34.7 % (39.0-53.0) L Mean Corpuscular Volume 95 fL (79-100) Mean Corpuscular Hemoglobin 32 pg (25-35) Mean Corpuscular Hemoglobin Concent 33 g/dL (31-37) Red Cell Distribution Width 12.8 % (11.5-14.5) Platelet Count 164 x10^3/uL (140-400) Neutrophils (%) (Auto) 49 % (31-73) Lymphocytes (%) (Auto) 34 % (24-48) Monocytes (%) (Auto) 12 % (0-9) H Eosinophils (%) (Auto) 4 % (0-3) H Basophils (%) (Auto) 1 % (0-3) Neutrophils # (Auto) 3.0 x10^3uL (1.8-7.7) Lymphocytes # (Auto) 2.1 x10^3/uL (1.0-4.8) Monocytes # (Auto) 0.7 x10^3/uL (0.0-1.1) Eosinophils # (Auto) 0.2 x10^3/uL (0.0-0.7) Basophils # (Auto) 0.1 x10^3/uL (0.0-0.2) Sodium Level 146 mmol/L (136-145) H Potassium Level 4.2 mmol/L (3.5-5.1) Chloride Level 108 mmol/L (98-107) H Carbon Dioxide Level 24 mmol/L (21-32) Anion Gap 14 (6-14) Blood Urea Nitrogen 57 mg/dL (8-26) H Creatinine 2.9 mg/dL (0.7-1.3) H Estimated GFR (Cockcroft-Gault) 20.8 BUN/Creatinine Ratio 20 (6-20) Glucose Level 98 mg/dL (70-99) Calcium Level 8.9 mg/dL (8.5-10.1) Total Bilirubin 0.3 mg/dL (0.2-1.0) Aspartate Amino Transferase (AST) 18 U/L (15-37) Alanine Aminotransferase (ALT) 28 U/L (16-63) Alkaline Phosphatase 104 U/L (46-116) Total Protein 7.2 g/dL (6.4-8.2) Albumin 3.5 g/dL (3.4-5.0) Albumin/Globulin Ratio 0.9 (1.0-1.7) L Valproic Acid Level 33 mcg/mL (50-100) L Valproic Acid Last Dose Date 04/07/21 Valproic Acid Last Dose Time 1700 Current Medications: Meds: Laboratory Tests Test 04/08/21 06:06 White Blood Count 6.2 x10^3/uL Red Blood Count 3.66 x10^6/uL Hemoglobin 11.5 g/dL Hematocrit 34.7 % Mean Corpuscular Volume 95 fL Mean Corpuscular Hemoglobin 32 pg Mean Corpuscular Hemoglobin Concent 33 g/dL Red Cell Distribution Width 12.8 % Platelet Count 164 x10^3/uL Neutrophils (%) (Auto) 49 % Lymphocytes (%) (Auto) 34 % Monocytes (%) (Auto) 12 % Eosinophils (%) (Auto) 4 % Basophils (%) (Auto) 1 % Neutrophils # (Auto) 3.0 x10^3uL Lymphocytes # (Auto) 2.1 x10^3/uL Monocytes # (Auto) 0.7 x10^3/uL Eosinophils # (Auto) 0.2 x10^3/uL Basophils # (Auto) 0.1 x10^3/uL Sodium Level 146 mmol/L Potassium Level 4.2 mmol/L Chloride Level 108 mmol/L Carbon Dioxide Level 24 mmol/L Anion Gap 14 Blood Urea Nitrogen 57 mg/dL Creatinine 2.9 mg/dL Estimated GFR (Cockcroft-Gault) 20.8 BUN/Creatinine Ratio 20 Glucose Level 98 mg/dL Calcium Level 8.9 mg/dL Total Bilirubin 0.3 mg/dL Aspartate Amino Transf (AST/SGOT) 18 U/L Alanine Aminotransferase (ALT/SGPT) 28 U/L Alkaline Phosphatase 104 U/L Total Protein 7.2 g/dL Albumin 3.5 g/dL Albumin/Globulin Ratio 0.9 Valproic Acid (Depakene) Level 33 mcg/mL Valproic Acid Last Dose Date 04/07/21 Valproic Acid Last Dose Time 1700 Current Medications Medications (Trade) Dose Ordered Sig/Eve Route PRN Reason Start Time Stop Time Status Last Admin Dose Admin Acetaminophen (Tylenol) 650 mg PRN Q6HRS PRN PO PAIN/FEVER 03/21/21 20:00 04/04/21 03:43 Carvedilol (Coreg) 3.125 mg BIDWMEALS PO 03/22/21 08:00 04/07/21 17:00 Celecoxib (CeleBREX) 50 mg BID PO 03/21/21 21:00 03/23/21 19:59 DC Vitamin D (Vitamin D3) 1,000 unit DAILY PO 03/22/21 09:00 04/07/21 08:08 Hydroxyzine HCl (Atarax Oral Syrup) 10 mg TID PO 03/21/21 21:00 03/21/21 21:55 DC Ibuprofen (Motrin) 200 mg PRN Q6HRS PRN PO INFLAMMATION 03/21/21 21:15 03/24/21 14:54 DC Lorazepam (Ativan) 0.5 mg PRN Q6HRS PRN PO ANXIETY 03/21/21 20:00 03/23/21 14:59 DC 03/23/21 14:03 Melatonin (Melatonin) 3 mg QHS PO 03/21/21 21:00 04/07/21 20:19 Fish Oil (Fish Oil) 1,000 mg DAILY PO 03/22/21 09:00 04/07/21 08:08 Oxybutynin Chloride (Ditropan) 5 mg DAILY PO 03/22/21 09:00 04/07/21 08:08 Polymyxin/ Trimethoprim Sulfate (Polytrim) 1 drop TID OU 03/21/21 21:00 03/23/21 19:59 DC Cyanocobalamin (Vitamin B-12) 1,000 mcg DAILY PO 03/22/21 09:00 04/07/21 08:08 Multivitamins/ Calcium (Thera-M Plus) 1 tab DAILY PO 03/22/21 09:00 04/07/21 08:08 Multivitamins/ Minerals (I-[place]) 1 tab DAILY PO 03/22/21 09:00 04/07/21 08:08 Non-Formulary Medication ([Vitamin D + [place] 3] ) 1 tab DAILY PO 03/22/21 09:00 03/21/21 21:16 DC Hydroxyzine HCl (Atarax) 10 mg TID PO 03/22/21 09:00 03/26/21 16:04 DC 03/26/21 12:07 Acetaminophen (Tylenol) 650 mg PRN Q6HRS PRN PO MILD PAIN / TEMP > 100.3'F 03/22/21 00:30 UNV Multi-Ingredient Ointment (Analgesic [place]) 1 sindi PRN QID PRN TP MUSCLE PAIN 03/22/21 00:30 Al Hydroxide/Mg Hydroxide (Mylanta Plus Xs) 15 ml PRN AFTMEALHC PRN PO DYSPEPSIA 03/22/21 00:30 Magnesium Hydroxide (Milk Of Magnesia) 2,400 mg PRN QHS PRN PO CONSTIPATION 03/22/21 00:30 03/27/21 12:39 Olanzapine (ZyPREXA ZYDIS) 2.5 mg PRN Q2HR PRN PO PSYCHOSIS 03/23/21 15:00 04/05/21 02:16 Sertraline HCl (Zoloft) 25 mg DAILY PO 03/24/21 09:00 03/27/21 08:00 DC 03/26/21 08:34 Sertraline HCl (Zoloft) 50 mg DAILY PO 03/27/21 09:00 04/07/21 08:08 Divalproex Sodium (Depakote) 125 mg DAILY PO 03/25/21 09:00 03/28/21 17:53 DC 03/28/21 08:18 Divalproex Sodium (Depakote Sprinkles) 125 mg DAILYWSUP PO 03/24/21 17:00 03/28/21 17:53 DC 03/28/21 17:29 Medroxyprogesterone Acetate (Provera) 2.5 mg DAILY PO 03/26/21 09:00 03/29/21 15:34 DC 03/29/21 08:31 Hydroxyzine HCl (Atarax) 10 mg BID PO 03/26/21 21:00 03/28/21 23:55 DC 03/28/21 20:45 Quetiapine Fumarate (SEROquel) 12.5 mg 0900,1700 PO 03/27/21 09:00 04/07/21 17:00 Hydroxyzine HCl (Atarax) 10 mg DAILY PO 03/29/21 09:00 03/31/21 09:01 DC 03/31/21 08:29 Divalproex Sodium (Depakote Sprinkles) 250 mg DAILYWSUP PO 03/29/21 17:00 03/31/21 13:11 DC 03/30/21 17:35 Divalproex Sodium (Depakote) 250 mg DAILY PO 03/29/21 09:00 03/31/21 12:56 DC 03/31/21 08:34 Medroxyprogesterone Acetate (Provera) 5 mg DAILY PO 03/30/21 09:00 04/07/21 08:08 Divalproex Sodium (Depakote) 500 mg 0900,1700 PO 03/31/21 17:00 04/07/21 17:00 I have reviewed the current psychotropics carefully including drug interactions. Risk benefit ratio favors no change other than as noted in my dictated progress note. Diagnosis: Problems: (1) Impulse control disorder, unspecified (2) Anxiety disorder, unspecified (3) Dementia, vascular, with depression (4) Dementia, vascular, with delusions (5) Dementia in Alzheimer's disease with depression (6) Dementia in Alzheimer's disease with delusions (7) Dementia of the Alzheimer's type with early onset with behavioral disturbance (8) Major neurocognitive disorder ALFREDO HARDIN MD Apr 08, 2021 07:42
[2021-04-08] MEDS: SERTRALINE 50 MG TABLET. PO SCH (07:58)
[2021-04-08] MEDS: ACETAMINOPHEN 325 MG TABLET PO PRN (07:58)
[2021-04-08] MEDS: CHOLECALCIFEROL (VITAMIN D3) 1,000 UNIT TABLET PO SCH (07:58)
[2021-04-08] MEDS: MULTIVITAMIN with MINERAL TABLET. PO SCH (07:58)
[2021-04-08] MEDS: QUEtiapine 25 MG TABLET. PO SCH ×2 (07:59→17:48)
[2021-04-08] MEDS: CARVEDILOL 3.125 MG TABLET PO SCH ×2 (07:59→17:48)
[2021-04-08] MEDS: OMEGA-3 FATTY ACIDS/FISH OIL 1,000 MG CAPSULE. PO SCH (07:59)
[2021-04-08] MEDS: medroxyPROGESTERone 5 MG TABLET PO SCH (07:59)
[2021-04-08] MEDS: OXYBUTYNIN CHLORIDE 5 MG TABLET PO SCH (07:59)
[2021-04-08] MEDS: CYANOCOBALAMIN (VITAMIN B-12) 1,000 MCG TABLET. PO SCH (08:00)
[2021-04-08] MEDS: DIVALPROEX SODIUM 250 MG TABLET.DR. PO SCH ×2 (08:00→17:47)
[2021-04-08] MEDS: MULTIVITAMIN I-VITE TABLET. PO SCH (08:00)
--- NOTE | 2021-04-08 08:35 | NUR ---
Nurse Note Patient disorganized, alert to self. walks with a shuffle. Patient complaint of right back pain, received Acetaminophen PRN.Patient compliant with medication. Patient withdrawn to room at times. Patient encouraged to participate in group therapy.
[2021-04-08 16:02] VITALS: BP 150/83
--- NOTE | 2021-04-08 16:48 | NUR ---
THOMAS contacted Song at [facility] to give her an update on pt and discussed discharge plans for . Song has requested that THOMAS submit updates re: pt and she will make sure to get with pt son about transportation for .
[2021-04-08] MEDS: MELATONIN 3 MG TABLET PO SCH (20:13)
--- NOTE | 2021-04-08 21:53 | PDOC ---
Exam Note: Fermin Note: Please also refer to the separate dictated note~for this date of service dictated separately.~Patient seen individually. Discussed the patient with Nursing staff reviewed the chart.~Reviewed interim history and current functioning. Reviewed vital signs,~Labs/ Radiology~and current medications noted below. Continue current treatment with the changes noted in the dictated addendum note Assessment: Vital Signs/I&O: Vital Signs Date Time Temp Pulse Resp B/P (MAP) Pulse Ox O2 Delivery O2 Flow Rate FiO2 04/08/21 17:48 61 150/83 04/08/21 16:02 97.5 19 99 04/08/21 05:46 Room Air I & O 04/07/21 04/07/21 04/08/21 15:00 23:00 07:00 Intake Total 480 ml 360 ml Balance 480 ml 360 ml Labs: Laboratory Tests Test 04/08/21 06:06 White Blood Count 6.2 x10^3/uL (4.0-11.0) Red Blood Count 3.66 x10^6/uL (4.30-5.70) L Hemoglobin 11.5 g/dL (13.0-17.5) L Hematocrit 34.7 % (39.0-53.0) L Mean Corpuscular Volume 95 fL (79-100) Mean Corpuscular Hemoglobin 32 pg (25-35) Mean Corpuscular Hemoglobin Concent 33 g/dL (31-37) Red Cell Distribution Width 12.8 % (11.5-14.5) Platelet Count 164 x10^3/uL (140-400) Neutrophils (%) (Auto) 49 % (31-73) Lymphocytes (%) (Auto) 34 % (24-48) Monocytes (%) (Auto) 12 % (0-9) H Eosinophils (%) (Auto) 4 % (0-3) H Basophils (%) (Auto) 1 % (0-3) Neutrophils # (Auto) 3.0 x10^3uL (1.8-7.7) Lymphocytes # (Auto) 2.1 x10^3/uL (1.0-4.8) Monocytes # (Auto) 0.7 x10^3/uL (0.0-1.1) Eosinophils # (Auto) 0.2 x10^3/uL (0.0-0.7) Basophils # (Auto) 0.1 x10^3/uL (0.0-0.2) Sodium Level 146 mmol/L (136-145) H Potassium Level 4.2 mmol/L (3.5-5.1) Chloride Level 108 mmol/L (98-107) H Carbon Dioxide Level 24 mmol/L (21-32) Anion Gap 14 (6-14) Blood Urea Nitrogen 57 mg/dL (8-26) H Creatinine 2.9 mg/dL (0.7-1.3) H Estimated GFR (Cockcroft-Gault) 20.8 BUN/Creatinine Ratio 20 (6-20) Glucose Level 98 mg/dL (70-99) Calcium Level 8.9 mg/dL (8.5-10.1) Total Bilirubin 0.3 mg/dL (0.2-1.0) Aspartate Amino Transferase (AST) 18 U/L (15-37) Alanine Aminotransferase (ALT) 28 U/L (16-63) Alkaline Phosphatase 104 U/L (46-116) Total Protein 7.2 g/dL (6.4-8.2) Albumin 3.5 g/dL (3.4-5.0) Albumin/Globulin Ratio 0.9 (1.0-1.7) L Valproic Acid Level 33 mcg/mL (50-100) L Valproic Acid Last Dose Date 04/07/21 Valproic Acid Last Dose Time 1700 Current Medications: Meds: Laboratory Tests Test 04/08/21 06:06 White Blood Count 6.2 x10^3/uL Red Blood Count 3.66 x10^6/uL Hemoglobin 11.5 g/dL Hematocrit 34.7 % Mean Corpuscular Volume 95 fL Mean Corpuscular Hemoglobin 32 pg Mean Corpuscular Hemoglobin Concent 33 g/dL Red Cell Distribution Width 12.8 % Platelet Count 164 x10^3/uL Neutrophils (%) (Auto) 49 % Lymphocytes (%) (Auto) 34 % Monocytes (%) (Auto) 12 % Eosinophils (%) (Auto) 4 % Basophils (%) (Auto) 1 % Neutrophils # (Auto) 3.0 x10^3uL Lymphocytes # (Auto) 2.1 x10^3/uL Monocytes # (Auto) 0.7 x10^3/uL Eosinophils # (Auto) 0.2 x10^3/uL Basophils # (Auto) 0.1 x10^3/uL Sodium Level 146 mmol/L Potassium Level 4.2 mmol/L Chloride Level 108 mmol/L Carbon Dioxide Level 24 mmol/L Anion Gap 14 Blood Urea Nitrogen 57 mg/dL Creatinine 2.9 mg/dL Estimated GFR (Cockcroft-Gault) 20.8 BUN/Creatinine Ratio 20 Glucose Level 98 mg/dL Calcium Level 8.9 mg/dL Total Bilirubin 0.3 mg/dL Aspartate Amino Transf (AST/SGOT) 18 U/L Alanine Aminotransferase (ALT/SGPT) 28 U/L Alkaline Phosphatase 104 U/L Total Protein 7.2 g/dL Albumin 3.5 g/dL Albumin/Globulin Ratio 0.9 Valproic Acid (Depakene) Level 33 mcg/mL Valproic Acid Last Dose Date 04/07/21 Valproic Acid Last Dose Time 1700 Current Medications Medications (Trade) Dose Ordered Sig/Eve Route PRN Reason Start Time Stop Time Status Last Admin Dose Admin Acetaminophen (Tylenol) 650 mg PRN Q6HRS PRN PO PAIN/FEVER 03/21/21 20:00 04/08/21 07:58 Carvedilol (Coreg) 3.125 mg BIDWMEALS PO 03/22/21 08:00 04/08/21 17:48 Celecoxib (CeleBREX) 50 mg BID PO 03/21/21 21:00 03/23/21 19:59 DC Vitamin D (Vitamin D3) 1,000 unit DAILY PO 03/22/21 09:00 04/08/21 07:58 Hydroxyzine HCl (Atarax Oral Syrup) 10 mg TID PO 03/21/21 21:00 03/21/21 21:55 DC Ibuprofen (Motrin) 200 mg PRN Q6HRS PRN PO INFLAMMATION 03/21/21 21:15 03/24/21 14:54 DC Lorazepam (Ativan) 0.5 mg PRN Q6HRS PRN PO ANXIETY 03/21/21 20:00 03/23/21 14:59 DC 03/23/21 14:03 Melatonin (Melatonin) 3 mg QHS PO 03/21/21 21:00 04/08/21 20:13 Fish Oil (Fish Oil) 1,000 mg DAILY PO 03/22/21 09:00 04/08/21 07:59 Oxybutynin Chloride (Ditropan) 5 mg DAILY PO 03/22/21 09:00 04/08/21 07:59 Polymyxin/ Trimethoprim Sulfate (Polytrim) 1 drop TID OU 03/21/21 21:00 03/23/21 19:59 DC Cyanocobalamin (Vitamin B-12) 1,000 mcg DAILY PO 03/22/21 09:00 04/08/21 08:00 Multivitamins/ Calcium (Thera-M Plus) 1 tab DAILY PO 03/22/21 09:00 04/08/21 07:58 Multivitamins/ Minerals (I-Leland) 1 tab DAILY PO 03/22/21 09:00 04/08/21 08:00 Non-Formulary Medication ([Vitamin D + [place] 3] ) 1 tab DAILY PO 03/22/21 09:00 03/21/21 21:16 DC Hydroxyzine HCl (Atarax) 10 mg TID PO 03/22/21 09:00 03/26/21 16:04 DC 03/26/21 12:07 Acetaminophen (Tylenol) 650 mg PRN Q6HRS PRN PO MILD PAIN / TEMP > 100.3'F 03/22/21 00:30 UNV Multi-Ingredient Ointment (Analgesic [place]) 1 sindi PRN QID PRN TP MUSCLE PAIN 03/22/21 00:30 Al Hydroxide/Mg Hydroxide (Mylanta Plus Xs) 15 ml PRN AFTMEALHC PRN PO DYSPEPSIA 03/22/21 00:30 Magnesium Hydroxide (Milk Of Magnesia) 2,400 mg PRN QHS PRN PO CONSTIPATION 03/22/21 00:30 03/27/21 12:39 Olanzapine (ZyPREXA ZYDIS) 2.5 mg PRN Q2HR PRN PO PSYCHOSIS 03/23/21 15:00 04/05/21 02:16 Sertraline HCl (Zoloft) 25 mg DAILY PO 03/24/21 09:00 03/27/21 08:00 DC 03/26/21 08:34 Sertraline HCl (Zoloft) 50 mg DAILY PO 03/27/21 09:00 04/08/21 07:58 Divalproex Sodium (Depakote) 125 mg DAILY PO 03/25/21 09:00 03/28/21 17:53 DC 03/28/21 08:18 Divalproex Sodium (Depakote Sprinkles) 125 mg DAILYWSUP PO 03/24/21 17:00 03/28/21 17:53 DC 03/28/21 17:29 Medroxyprogesterone Acetate (Provera) 2.5 mg DAILY PO 03/26/21 09:00 03/29/21 15:34 DC 03/29/21 08:31 Hydroxyzine HCl (Atarax) 10 mg BID PO 03/26/21 21:00 03/28/21 23:55 DC 03/28/21 20:45 Quetiapine Fumarate (SEROquel) 12.5 mg 0900,1700 PO 03/27/21 09:00 04/08/21 17:48 Hydroxyzine HCl (Atarax) 10 mg DAILY PO 03/29/21 09:00 03/31/21 09:01 DC 03/31/21 08:29 Divalproex Sodium (Depakote Sprinkles) 250 mg DAILYWSUP PO 03/29/21 17:00 03/31/21 13:11 DC 03/30/21 17:35 Divalproex Sodium (Depakote) 250 mg DAILY PO 03/29/21 09:00 03/31/21 12:56 DC 03/31/21 08:34 Medroxyprogesterone Acetate (Provera) 5 mg DAILY PO 03/30/21 09:00 04/08/21 07:59 Divalproex Sodium (Depakote) 500 mg 0900,1700 PO 03/31/21 17:00 04/08/21 17:47 I have reviewed the current psychotropics carefully including drug interactions. Risk benefit ratio favors no change other than as noted in my dictated progress note. 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
--- NOTE | 2021-04-08 22:32 | NUR ---
Patient was in the day room sitting in a wheelchair. He was restless and stood up, he was then assisted to a chair to sit on. Patients gait is unsteady and he is weak at times. Patient compliant with medication and cooperative with staff. No adverse behaviors noted a this time.
[2021-04-09 05:36] VITALS: BP 162/84
--- NOTE | 2021-04-09 05:51 | NUR ---
Patient resistive with getting dressed this morning. He refused to help and pushed and pulled against staff. Patient insists he can dress himself although he is no longer able to do so independently and requires assistance.
--- NOTE | 2021-04-09 06:43 | PDOC ---
Exam Note: Fermin Note: This note is a late entry for 04/08/2021overs elements not covered in my initial note. Subjective: The patient was seen face to face in the evening of 04/08/2021 with Pat CAICEDO, discussed and reviewed the chart. He slept 7-1/2 hours previous night. The patient has had a shuffling gait. Appetite is fair. No sexually inappropriate behaviors noted. Review of Systems: No CV, , pulmonary, eye, ENT system symptoms on review. Reliability poor. Mental Status Exam: The patient is more oriented to himself. I met with him in the dayroom. Insight and judgment, recent and remote memory, attention and concentration, fund of knowledge is poor consistent with his diagnoses. Laboratory Data: Reviewed. Impression: Major neurocognitive disorder Alzheimer vascular with delusion, depression, behavioral disturbance. Anxiety disorder unspecified. Impulse control disorder unspecified. Plan: Continue current psychotropics from initial note. Assessment: Vital Signs/I&O: Vital Signs Date Time Temp Pulse Resp B/P (MAP) Pulse Ox O2 Delivery O2 Flow Rate FiO2 04/09/21 05:36 98.4 62 18 162/84 (110) 99 Room Air I & O0 04/08/21 04/08/21 04/09/21 15:00 23:00 07:00 Intake Total 600 ml 360 ml Balance 600 ml 360 ml Current Medications: Meds: Current Medications Medications (Trade) Dose Ordered Sig/Eve Route PRN Reason Start Time Stop Time Status Last Admin Dose Admin Acetaminophen (Tylenol) 650 mg PRN Q6HRS PRN PO PAIN/FEVER 03/21/21 20:00 04/08/21 07:58 Carvedilol (Coreg) 3.125 mg BIDWMEALS PO 03/22/21 08:00 04/08/21 17:48 Celecoxib (CeleBREX) 50 mg BID PO 03/21/21 21:00 03/23/21 19:59 DC Vitamin D (Vitamin D3) 1,000 unit DAILY PO 03/22/21 09:00 04/08/21 07:58 Hydroxyzine HCl (Atarax Oral Syrup) 10 mg TID PO 03/21/21 21:00 03/21/21 21:55 DC Ibuprofen (Motrin) 200 mg PRN Q6HRS PRN PO INFLAMMATION 03/21/21 21:15 03/24/21 14:54 DC Lorazepam (Ativan) 0.5 mg PRN Q6HRS PRN PO ANXIETY 03/21/21 20:00 03/23/21 14:59 DC 03/23/21 14:03 Melatonin (Melatonin) 3 mg QHS PO 03/21/21 21:00 04/08/21 20:13 Fish Oil (Fish Oil) 1,000 mg DAILY PO 03/22/21 09:00 04/08/21 07:59 Oxybutynin Chloride (Ditropan) 5 mg DAILY PO 03/22/21 09:00 04/08/21 07:59 Polymyxin/ Trimethoprim Sulfate (Polytrim) 1 drop TID OU 03/21/21 21:00 03/23/21 19:59 DC Cyanocobalamin (Vitamin B-12) 1,000 mcg DAILY PO 03/22/21 09:00 04/08/21 08:00 Multivitamins/ Calcium (Thera-M Plus) 1 tab DAILY PO 03/22/21 09:00 04/08/21 07:58 Multivitamins/ Minerals (I-Leland) 1 tab DAILY PO 03/22/21 09:00 04/08/21 08:00 Non-Formulary Medication ([Vitamin D + [place] 3] ) 1 tab DAILY PO 03/22/21 09:00 03/21/21 21:16 DC Hydroxyzine HCl (Atarax) 10 mg TID PO 03/22/21 09:00 03/26/21 16:04 DC 03/26/21 12:07 Acetaminophen (Tylenol) 650 mg PRN Q6HRS PRN PO MILD PAIN / TEMP > 100.3'F 03/22/21 00:30 UNV Multi-Ingredient Ointment (Analgesic [place]) 1 sindi PRN QID PRN TP MUSCLE PAIN 03/22/21 00:30 Al Hydroxide/Mg Hydroxide (Mylanta Plus Xs) 15 ml PRN AFTMEALHC PRN PO DYSPEPSIA 03/22/21 00:30 Magnesium Hydroxide (Milk Of Magnesia) 2,400 mg PRN QHS PRN PO CONSTIPATION 03/22/21 00:30 03/27/21 12:39 Olanzapine (ZyPREXA ZYDIS) 2.5 mg PRN Q2HR PRN PO PSYCHOSIS 03/23/21 15:00 04/05/21 02:16 Sertraline HCl (Zoloft) 25 mg DAILY PO 03/24/21 09:00 03/27/21 08:00 DC 03/26/21 08:34 Sertraline HCl (Zoloft) 50 mg DAILY PO 03/27/21 09:00 04/08/21 07:58 Divalproex Sodium (Depakote) 125 mg DAILY PO 03/25/21 09:00 03/28/21 17:53 DC 03/28/21 08:18 Divalproex Sodium (Depakote Sprinkles) 125 mg DAILYWSUP PO 03/24/21 17:00 03/28/21 17:53 DC 03/28/21 17:29 Medroxyprogesterone Acetate (Provera) 2.5 mg DAILY PO 03/26/21 09:00 03/29/21 15:34 DC 03/29/21 08:31 Hydroxyzine HCl (Atarax) 10 mg BID PO 03/26/21 21:00 03/28/21 23:55 DC 03/28/21 20:45 Quetiapine Fumarate (SEROquel) 12.5 mg 0900,1700 PO 03/27/21 09:00 04/08/21 17:48 Hydroxyzine HCl (Atarax) 10 mg DAILY PO 03/29/21 09:00 03/31/21 09:01 DC 03/31/21 08:29 Divalproex Sodium (Depakote Sprinkles) 250 mg DAILYWSUP PO 03/29/21 17:00 03/31/21 13:11 DC 03/30/21 17:35 Divalproex Sodium (Depakote) 250 mg DAILY PO 03/29/21 09:00 03/31/21 12:56 DC 03/31/21 08:34 Medroxyprogesterone Acetate (Provera) 5 mg DAILY PO 03/30/21 09:00 04/08/21 07:59 Divalproex Sodium (Depakote) 500 mg 0900,1700 PO 03/31/21 17:00 04/08/21 17:47 I have reviewed the current psychotropics carefully including drug interactions. Risk benefit ratio favors no change other than as noted in my dictated progress note. Diagnosis: Problems: (1) Impulse control disorder, unspecified (2) Anxiety disorder, unspecified (3) Dementia, vascular, with depression (4) Dementia, vascular, with delusions (5) Dementia in Alzheimer's disease with depression (6) Dementia in Alzheimer's disease with delusions (7) Dementia of the Alzheimer's type with early onset with behavioral disturbance (8) Major neurocognitive disorder ALFREDO HARDIN MD Apr 09, 2021 06:43
[2021-04-09] MEDS: MULTIVITAMIN I-VITE TABLET. PO SCH (08:42)
[2021-04-09] MEDS: DIVALPROEX SODIUM 250 MG TABLET.DR. PO SCH ×2 (08:42→17:30)
[2021-04-09] MEDS: CARVEDILOL 3.125 MG TABLET PO SCH ×2 (08:42→17:29)
[2021-04-09] MEDS: OMEGA-3 FATTY ACIDS/FISH OIL 1,000 MG CAPSULE. PO SCH (08:43)
[2021-04-09] MEDS: CHOLECALCIFEROL (VITAMIN D3) 1,000 UNIT TABLET PO SCH (08:43)
[2021-04-09] MEDS: MULTIVITAMIN with MINERAL TABLET. PO SCH (08:43)
[2021-04-09] MEDS: SERTRALINE 50 MG TABLET. PO SCH (08:43)
[2021-04-09] MEDS: OXYBUTYNIN CHLORIDE 5 MG TABLET PO SCH (08:43)
[2021-04-09] MEDS: CYANOCOBALAMIN (VITAMIN B-12) 1,000 MCG TABLET. PO SCH (08:43)
[2021-04-09] MEDS: medroxyPROGESTERone 5 MG TABLET PO SCH (08:44)
[2021-04-09] MEDS: QUEtiapine 25 MG TABLET. PO SCH ×2 (08:44→17:30)
--- NOTE | 2021-04-09 13:21 | NUR ---
THOMAS contacted Jim to discuss pt discharge for tomorrow. THOMAS explained that she spoke with Song at [facility] to discuss pt discharge. THOMAS got the impression that they would prefer their in-house physician to handle them. Jim does not wish for them to touch pt psychiatric medications as they have had trouble before just putting pt on medications that appear to be detrimental to his health. Jim has requested that THOMAS go ahead and set pt up with a psychiatrist; in which THOMAS will send him the information of the clinic. Jim also questioned one of pt medical medications in which SW would have to ask the hospitalist and get back to him. He would like to see if it is even needed as pt is intermittently incontinent and just wanders if it is doing him any good and potentially harming his psyche. THOMAS also informed Jim that the facility thought his brother Kaushal would be picking pt up. Jim reports that the facility should be taking care of it; furthermore, his brother is out of the state on vacation with his family. THOMAS will confirm all of this with Song and update Jim on the outcome.
--- NOTE | 2021-04-09 13:52 | NUR ---
THOMAS contacted Song @ [facility], who then placed SW on speakerphone so that Vandana, another nurse, could hear SW update. THOMAS informed them that pt son is on vacation and cannot transport. Jim has requested that [facility] set up the transport. Vandana questioned if he mentioned having his dtr pick them up and THOMAS said pt son didn't even mention him as an option. Vandana asked if THOMAS could set up transport with [facility] and HTOMAS questioned why an ambulance transport. "because it's charged through Medicare". THOMAS explained that there was no reason to send pt via ambulance. THOMAS will look into a w/c van transportation and questioned what time they would like for pt to arrive. She reports "after lunch". Vandana also [facility] in which [facility]AS explained that the doctor may not have signed it but it could be sent first thing in the morning prior to pt transport.
--- NOTE | 2021-04-09 15:43 | NUR ---
THOMAS contacted Jim to let him know about the transportation issue. Jim has agreed to pay for transport and THOMAS gave him the number to the company THOMAS received a quote from. By paying with credit card transportation is 138.81. Jim has requested that THOMAS also send him the final medication list that the facility receives so he can be on top of the medications prescribed.
[2021-04-09 16:00] VITALS: BP 127/74
--- NOTE | 2021-04-09 16:15 | NUR ---
[facility] Social Work Discharge Planning Form Patient Name LÓPEZ ESCALANTE Admit Date: 21 March 2021 DISCHARGE PLAN Discharge Destination: Pt to discharge back to [facility]. Care Assessment: N/A Level II Assessment: N/A [facility]: [facility] to pick pt up around 1400. Special Instructions/Notes: Please fax discharge orders, discharge medication list and discharge summary to the fax number listed below. DISCHARGE TO FACILITY Facility: [facility] Address: [address] [address] Contact Name: Song RN: Contact Name: Ask for Vandana to give nursing report at the time of discharge: PCP: Dr. Hammonds Psychiatrist/Mental Health Follow Up: [facility] Contact Information: [address] [address]; [place] [address] Appt: [facility] submitted information over to them; a client care representative will contact the family with an appt date and time for follow-up care.
--- NOTE | 2021-04-09 17:13 | NUR ---
nsg note; josé has been awake and alert today. he is confused, not answering questions appropriately. he has been content to stay in the dayroom between meals but does not engage with peers or staff, or participate in groups. he feeds himself but needs freq queing to take his meds which i floated on his oatmeal.
[2021-04-09] MEDS: MELATONIN 3 MG TABLET PO SCH (19:53)
--- NOTE | 2021-04-09 21:53 | PDOC ---
Exam Note: Fermin Note: Please also refer to the separate dictated note~for this date of service dictated separately.~Patient seen individually. Discussed the patient with Nursing staff reviewed the chart.~Reviewed interim history and current functioning. Reviewed vital signs,~Labs/ Radiology~and current medications noted below. Continue current treatment with the changes noted in the dictated addendum note Assessment: Vital Signs/I&O: Vital Signs Date Time Temp Pulse Resp B/P (MAP) Pulse Ox O2 Delivery O2 Flow Rate FiO2 04/09/21 17:29 57 127/74 04/09/21 16:00 97.3 18 98 04/09/21 05:36 Room Air I & O 04/08/21 04/08/21 04/09/21 15:00 23:00 07:00 Intake Total 600 ml 360 ml Balance 600 ml 360 ml Labs: Laboratory Tests Test 04/09/21 10:55 SARS-CoV-2 (PCR) Negative (NEGATIVE) Current Medications: Meds: Laboratory Tests Test 04/09/21 10:55 Coronavirus (COVID-19)(PCR) Negative Current Medications Medications (Trade) Dose Ordered Sig/Eve Route PRN Reason Start Time Stop Time Status Last Admin Dose Admin Acetaminophen (Tylenol) 650 mg PRN Q6HRS PRN PO PAIN/FEVER 03/21/21 20:00 04/08/21 07:58 Carvedilol (Coreg) 3.125 mg BIDWMEALS PO 03/22/21 08:00 04/09/21 17:29 Celecoxib (CeleBREX) 50 mg BID PO 03/21/21 21:00 03/23/21 19:59 DC Vitamin D (Vitamin D3) 1,000 unit DAILY PO 03/22/21 09:00 04/09/21 08:43 Hydroxyzine HCl (Atarax Oral Syrup) 10 mg TID PO 03/21/21 21:00 03/21/21 21:55 DC Ibuprofen (Motrin) 200 mg PRN Q6HRS PRN PO INFLAMMATION 03/21/21 21:15 03/24/21 14:54 DC Lorazepam (Ativan) 0.5 mg PRN Q6HRS PRN PO ANXIETY 03/21/21 20:00 03/23/21 14:59 DC 03/23/21 14:03 Melatonin (Melatonin) 3 mg QHS PO 03/21/21 21:00 04/09/21 19:53 Fish Oil (Fish Oil) 1,000 mg DAILY PO 03/22/21 09:00 04/09/21 08:43 Oxybutynin Chloride (Ditropan) 5 mg DAILY PO 03/22/21 09:00 04/09/21 08:43 Polymyxin/ Trimethoprim Sulfate (Polytrim) 1 drop TID OU 03/21/21 21:00 03/23/21 19:59 DC Cyanocobalamin (Vitamin B-12) 1,000 mcg DAILY PO 03/22/21 09:00 04/09/21 08:43 Multivitamins/ Calcium (Thera-M Plus) 1 tab DAILY PO 03/22/21 09:00 04/09/21 08:43 Multivitamins/ Minerals (I-[place]) 1 tab DAILY PO 03/22/21 09:00 04/09/21 08:42 Non-Formulary Medication ([Vitamin D + [place] 3] ) 1 tab DAILY PO 03/22/21 09:00 03/21/21 21:16 DC Hydroxyzine HCl (Atarax) 10 mg TID PO 03/22/21 09:00 03/26/21 16:04 DC 03/26/21 12:07 Acetaminophen (Tylenol) 650 mg PRN Q6HRS PRN PO MILD PAIN / TEMP > 100.3'F 03/22/21 00:30 UNV Multi-Ingredient Ointment (Analgesic [place]) 1 sindi PRN QID PRN TP MUSCLE PAIN 03/22/21 00:30 Al Hydroxide/Mg Hydroxide (Mylanta Plus Xs) 15 ml PRN AFTMEALHC PRN PO DYSPEPSIA 03/22/21 00:30 Magnesium Hydroxide (Milk Of Magnesia) 2,400 mg PRN QHS PRN PO CONSTIPATION 03/22/21 00:30 03/27/21 12:39 Olanzapine (ZyPREXA ZYDIS) 2.5 mg PRN Q2HR PRN PO PSYCHOSIS 03/23/21 15:00 04/05/21 02:16 Sertraline HCl (Zoloft) 25 mg DAILY PO 03/24/21 09:00 03/27/21 08:00 DC 03/26/21 08:34 Sertraline HCl (Zoloft) 50 mg DAILY PO 03/27/21 09:00 04/09/21 08:43 Divalproex Sodium (Depakote) 125 mg DAILY PO 03/25/21 09:00 03/28/21 17:53 DC 03/28/21 08:18 Divalproex Sodium (Depakote Sprinkles) 125 mg DAILYWSUP PO 03/24/21 17:00 03/28/21 17:53 DC 03/28/21 17:29 Medroxyprogesterone Acetate (Provera) 2.5 mg DAILY PO 03/26/21 09:00 03/29/21 15:34 DC 03/29/21 08:31 Hydroxyzine HCl (Atarax) 10 mg BID PO 03/26/21 21:00 03/28/21 23:55 DC 03/28/21 20:45 Quetiapine Fumarate (SEROquel) 12.5 mg 0900,1700 PO 03/27/21 09:00 04/09/21 17:30 Hydroxyzine HCl (Atarax) 10 mg DAILY PO 03/29/21 09:00 03/31/21 09:01 DC 03/31/21 08:29 Divalproex Sodium (Depakote Sprinkles) 250 mg DAILYWSUP PO 03/29/21 17:00 03/31/21 13:11 DC 03/30/21 17:35 Divalproex Sodium (Depakote) 250 mg DAILY PO 03/29/21 09:00 03/31/21 12:56 DC 03/31/21 08:34 Medroxyprogesterone Acetate (Provera) 5 mg DAILY PO 03/30/21 09:00 04/09/21 08:44 Divalproex Sodium (Depakote) 500 mg 0900,1700 PO 03/31/21 17:00 04/09/21 17:30 I have reviewed the current psychotropics carefully including drug interactions. Risk benefit ratio favors no change other than as noted in my dictated progress note. Diagnosis: Problems: (1) Impulse control disorder, unspecified (2) Anxiety disorder, unspecified (3) Dementia, vascular, with depression (4) Dementia, vascular, with delusions (5) Dementia in Alzheimer's disease with depression (6) Dementia in Alzheimer's disease with delusions (7) Dementia of the Alzheimer's type with early onset with behavioral disturbance (8) Major neurocognitive disorder ALFREDO HARDIN MD Apr 09, 2021 21:53
--- NOTE | 2021-04-09 21:55 | NUR ---
Patient is disorganized and has been wandering the unit in his wheel chair. He remains weak and unsteady at times. Patient was cooperative with HS cares and compliant with medications. He went to bed early and appears to be sleeping soundly. No adverse behaviors noted this shift.
[2021-04-09] MEDS ORDERED: MULT1TAB92 PO (23:20)
[2021-04-09] MEDS ORDERED: VIT1TABL8 PO (23:21)
[2021-04-09] MEDS ORDERED: DIVA-53 PO (23:22)
[2021-04-09] MEDS ORDERED: MAG-124 PO (23:23)
[2021-04-09] MEDS ORDERED: MAGN24003 PO (23:23)
[2021-04-09] MEDS ORDERED: METH57CR17 TP (23:24)
[2021-04-09] MEDS ORDERED: OLAN5TAB7 PO (23:25)
[2021-04-09] MEDS ORDERED: OMEG1CAP50 PO (23:27)
[2021-04-09] MEDS ORDERED: QUET25TA5 PO (23:28)
[2021-04-09] MEDS ORDERED: MEDR5TAB2 PO (23:29)
[2021-04-09] MEDS ORDERED: SERT50TA PO (23:29)
[2021-04-10 06:48] VITALS: BP 146/83
[2021-04-10 08:32] VITALS: BP 146/83
[2021-04-10] MEDS: MULTIVITAMIN I-VITE TABLET. PO SCH (08:32)
[2021-04-10] MEDS: CARVEDILOL 3.125 MG TABLET PO SCH (08:32)
[2021-04-10] MEDS: MULTIVITAMIN with MINERAL TABLET. PO SCH (08:32)
[2021-04-10] MEDS: OXYBUTYNIN CHLORIDE 5 MG TABLET PO SCH (08:33)
[2021-04-10] MEDS: QUEtiapine 25 MG TABLET. PO SCH (08:33)
[2021-04-10] MEDS: DIVALPROEX SODIUM 250 MG TABLET.DR. PO SCH (08:33)
[2021-04-10] MEDS: CHOLECALCIFEROL (VITAMIN D3) 1,000 UNIT TABLET PO SCH (08:33)
[2021-04-10] MEDS: OMEGA-3 FATTY ACIDS/FISH OIL 1,000 MG CAPSULE. PO SCH (08:33)
[2021-04-10] MEDS: medroxyPROGESTERone 5 MG TABLET PO SCH (08:33)
[2021-04-10] MEDS: CYANOCOBALAMIN (VITAMIN B-12) 1,000 MCG TABLET. PO SCH (08:33)
[2021-04-10] MEDS: SERTRALINE 50 MG TABLET. PO SCH (08:33)
--- NOTE | 2021-04-10 14:34 | NUR ---
Transition Record was faxed to follow-up provider with the following elements: Reason for admission, procedures, tests, principal diagnosis, pending studies, patient instructions, 29/03 contact information for unit, phone number to obtain pending test results, plan for follow-up care, physician follow-up, advanced directive information, and medication list with dose, duration and instructions. This information was included in the following documents: History and physical, lab results, study results, progress notes, social work planning form, DC instruction form, patient visit summary, and medication reconciliation form. Date & time record faxed: 04/10/21 at 1144 Record faxed to: [facility] [phone] Record discussed with/ report given to: Mary Ann CRANDALL Pt discharged at 1430 via w/c accomp by transport personnel.
--- NOTE | 2021-04-10 22:16 | PDOC ---
Exam Note: Fermin Note: Please also refer to the separate dictated note~for this date of service dictated separately.~Patient seen individually. Discussed the patient with Nursing staff reviewed the chart.~Reviewed interim history and current functioning. Reviewed vital signs,~Labs/ Radiology~and current medications noted below. Continue current treatment with the changes noted in the dictated addendum note Assessment: Vital Signs/I&O: Vital Signs Date Time Temp Pulse Resp B/P (MAP) Pulse Ox O2 Delivery O2 Flow Rate FiO2 04/10/21 08:32 66 146/83 04/10/21 06:48 98.5 20 100 Room Air I & O 04/09/21 04/09/21 04/10/21 15:00 23:00 07:00 Intake Total 400 ml 360 ml Balance 400 ml 360 ml Current Medications: Meds: Current Medications Medications (Trade) Dose Ordered Sig/Eve Route PRN Reason Start Time Stop Time Status Last Admin Dose Admin Acetaminophen (Tylenol) 650 mg PRN Q6HRS PRN PO PAIN/FEVER 03/21/21 20:00 04/10/21 14:38 DC 04/08/21 07:58 Carvedilol (Coreg) 3.125 mg BIDWMEALS PO 03/22/21 08:00 04/10/21 14:38 DC 04/10/21 08:32 Celecoxib (CeleBREX) 50 mg BID PO 03/21/21 21:00 03/23/21 19:59 DC Vitamin D (Vitamin D3) 1,000 unit DAILY PO 03/22/21 09:00 04/10/21 14:38 DC 04/10/21 08:33 Hydroxyzine HCl (Atarax Oral Syrup) 10 mg TID PO 03/21/21 21:00 03/21/21 21:55 DC Ibuprofen (Motrin) 200 mg PRN Q6HRS PRN PO INFLAMMATION 03/21/21 21:15 03/24/21 14:54 DC Lorazepam (Ativan) 0.5 mg PRN Q6HRS PRN PO ANXIETY 03/21/21 20:00 03/23/21 14:59 DC 03/23/21 14:03 Melatonin (Melatonin) 3 mg QHS PO 03/21/21 21:00 04/10/21 14:38 DC 04/09/21 19:53 Fish Oil (Fish Oil) 1,000 mg DAILY PO 03/22/21 09:00 04/10/21 14:38 DC 04/10/21 08:33 Oxybutynin Chloride (Ditropan) 5 mg DAILY PO 03/22/21 09:00 04/10/21 14:38 DC 04/10/21 08:33 Polymyxin/ Trimethoprim Sulfate (Polytrim) 1 drop TID OU 03/21/21 21:00 03/23/21 19:59 DC Cyanocobalamin (Vitamin B-12) 1,000 mcg DAILY PO 03/22/21 09:00 04/10/21 14:38 DC 04/10/21 08:33 Multivitamins/ Calcium (Thera-M Plus) 1 tab DAILY PO 03/22/21 09:00 04/10/21 14:38 DC 04/10/21 08:32 Multivitamins/ Minerals (I-[place]) 1 tab DAILY PO 03/22/21 09:00 04/10/21 14:38 DC 04/10/21 08:32 Non-Formulary Medication ([Vitamin D + [place] 3] ) 1 tab DAILY PO 03/22/21 09:00 03/21/21 21:16 DC Hydroxyzine HCl (Atarax) 10 mg TID PO 03/22/21 09:00 03/26/21 16:04 DC 03/26/21 12:07 Acetaminophen (Tylenol) 650 mg PRN Q6HRS PRN PO MILD PAIN / TEMP > 100.3'F 03/22/21 00:30 UNV Multi-Ingredient Ointment (Analgesic [place]) 1 sindi PRN QID PRN TP MUSCLE PAIN 03/22/21 00:30 04/10/21 14:38 DC Al Hydroxide/Mg Hydroxide (Mylanta Plus Xs) 15 ml PRN AFTMEALHC PRN PO DYSPEPSIA 03/22/21 00:30 04/10/21 14:38 DC Magnesium Hydroxide (Milk Of Magnesia) 2,400 mg PRN QHS PRN PO CONSTIPATION 03/22/21 00:30 04/10/21 14:38 DC 03/27/21 12:39 Olanzapine (ZyPREXA ZYDIS) 2.5 mg PRN Q2HR PRN PO PSYCHOSIS 03/23/21 15:00 04/10/21 14:38 DC 04/05/21 02:16 Sertraline HCl (Zoloft) 25 mg DAILY PO 03/24/21 09:00 03/27/21 08:00 DC 03/26/21 08:34 Sertraline HCl (Zoloft) 50 mg DAILY PO 03/27/21 09:00 04/10/21 14:38 DC 04/10/21 08:33 Divalproex Sodium (Depakote) 125 mg DAILY PO 03/25/21 09:00 03/28/21 17:53 DC 03/28/21 08:18 Divalproex Sodium (Depakote Sprinkles) 125 mg DAILYWSUP PO 03/24/21 17:00 03/28/21 17:53 DC 03/28/21 17:29 Medroxyprogesterone Acetate (Provera) 2.5 mg DAILY PO 03/26/21 09:00 03/29/21 15:34 DC 03/29/21 08:31 Hydroxyzine HCl (Atarax) 10 mg BID PO 03/26/21 21:00 03/28/21 23:55 DC 03/28/21 20:45 Quetiapine Fumarate (SEROquel) 12.5 mg 0900,1700 PO 03/27/21 09:00 04/10/21 14:38 DC 04/10/21 08:33 Hydroxyzine HCl (Atarax) 10 mg DAILY PO 03/29/21 09:00 03/31/21 09:01 DC 03/31/21 08:29 Divalproex Sodium (Depakote Sprinkles) 250 mg DAILYWSUP PO 03/29/21 17:00 03/31/21 13:11 DC 03/30/21 17:35 Divalproex Sodium (Depakote) 250 mg DAILY PO 03/29/21 09:00 03/31/21 12:56 DC 03/31/21 08:34 Medroxyprogesterone Acetate (Provera) 5 mg DAILY PO 03/30/21 09:00 04/10/21 14:38 DC 04/10/21 08:33 Divalproex Sodium (Depakote) 500 mg 0900,1700 PO 03/31/21 17:00 04/10/21 14:38 DC 04/10/21 08:33 I have reviewed the current psychotropics carefully including drug interactions. Risk benefit ratio favors no change other than as noted in my dictated progress note. 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
--- NOTE | 2021-04-11 06:40 | PDOC ---
Exam Note: Fermin Note: This note is a late entry for 04/09/2021overs elements not covered in my initial note. Subjective: The patient was seen face to face in the evening of 04/09/2021 with Carmel CAICEDO, discussed and reviewed the chart. He slept 6-1/2 hours previous night. The patient remains in wheelchair, agitated in the morning with activities of daily living, pushing staff somewhat in the morning. He remains confused with short-term memory deficits. Review of Systems: Ambulation impaired. No CV, , pulmonary, eye, ENT system symptoms on review. Reliability poor. Mental Status Exam: The patient is more oriented to himself. I met with him his dinner time. He was unable to tell me the food items that were lying in front of him. Insight and judgment, recent and remote memory, attention and concentration, fund of knowledge is poor consistent with his diagnoses. Laboratory Data: Reviewed. Impression: Major neurocognitive disorder Alzheimer vascular with delusion, depression, behavioral disturbance. Anxiety disorder unspecified. Impulse control disorder unspecified. Plan: Continue current psychotropics from initial note. Valproic acid level was 33 on 04/08 even though slightly subtherapeutic, clinically adequate for now. Consider transition back to halfway in the next couple of days. Assessment: Vital Signs/I&O: Vital Signs Date Time Temp Pulse Resp B/P (MAP) Pulse Ox O2 Delivery O2 Flow Rate FiO2 04/10/21 08:32 66 146/83 04/10/21 06:48 98.5 20 100 Room Air I & O 04/10/21 04/10/21 04/11/21 15:00 23:00 07:00 Intake Total 840 ml Balance 840 ml Current Medications: Meds: Current Medications Medications (Trade) Dose Ordered Sig/Eve Route PRN Reason Start Time Stop Time Status Last Admin Dose Admin Acetaminophen (Tylenol) 650 mg PRN Q6HRS PRN PO PAIN/FEVER 03/21/21 20:00 04/10/21 14:38 DC 04/08/21 07:58 Carvedilol (Coreg) 3.125 mg BIDWMEALS PO 03/22/21 08:00 04/10/21 14:38 DC 04/10/21 08:32 Celecoxib (CeleBREX) 50 mg BID PO 03/21/21 21:00 03/23/21 19:59 DC Vitamin D (Vitamin D3) 1,000 unit DAILY PO 03/22/21 09:00 04/10/21 14:38 DC 04/10/21 08:33 Hydroxyzine HCl (Atarax Oral Syrup) 10 mg TID PO 03/21/21 21:00 03/21/21 21:55 DC Ibuprofen (Motrin) 200 mg PRN Q6HRS PRN PO INFLAMMATION 03/21/21 21:15 03/24/21 14:54 DC Lorazepam (Ativan) 0.5 mg PRN Q6HRS PRN PO ANXIETY 03/21/21 20:00 03/23/21 14:59 DC 03/23/21 14:03 Melatonin (Melatonin) 3 mg QHS PO 03/21/21 21:00 04/10/21 14:38 DC 04/09/21 19:53 Fish Oil (Fish Oil) 1,000 mg DAILY PO 03/22/21 09:00 04/10/21 14:38 DC 04/10/21 08:33 Oxybutynin Chloride (Ditropan) 5 mg DAILY PO 03/22/21 09:00 04/10/21 14:38 DC 04/10/21 08:33 Polymyxin/ Trimethoprim Sulfate (Polytrim) 1 drop TID OU 03/21/21 21:00 03/23/21 19:59 DC Cyanocobalamin (Vitamin B-12) 1,000 mcg DAILY PO 03/22/21 09:00 04/10/21 14:38 DC 04/10/21 08:33 Multivitamins/ Calcium (Thera-M Plus) 1 tab DAILY PO 03/22/21 09:00 04/10/21 14:38 DC 04/10/21 08:32 Multivitamins/ Minerals (I-[place]) 1 tab DAILY PO 03/22/21 09:00 04/10/21 14:38 DC 04/10/21 08:32 Non-Formulary Medication ([Vitamin D + [place] 3] ) 1 tab DAILY PO 03/22/21 09:00 03/21/21 21:16 DC Hydroxyzine HCl (Atarax) 10 mg TID PO 03/22/21 09:00 03/26/21 16:04 DC 03/26/21 12:07 Acetaminophen (Tylenol) 650 mg PRN Q6HRS PRN PO MILD PAIN / TEMP > 100.3'F 03/22/21 00:30 UNV Multi-Ingredient Ointment (Analgesic [place]) 1 sindi PRN QID PRN TP MUSCLE PAIN 03/22/21 00:30 04/10/21 14:38 DC Al Hydroxide/Mg Hydroxide (Mylanta Plus Xs) 15 ml PRN AFTMEALHC PRN PO DYSPEPSIA 03/22/21 00:30 04/10/21 14:38 DC Magnesium Hydroxide (Milk Of Magnesia) 2,400 mg PRN QHS PRN PO CONSTIPATION 03/22/21 00:30 04/10/21 14:38 DC 03/27/21 12:39 Olanzapine (ZyPREXA ZYDIS) 2.5 mg PRN Q2HR PRN PO PSYCHOSIS 03/23/21 15:00 04/10/21 14:38 DC 04/05/21 02:16 Sertraline HCl (Zoloft) 25 mg DAILY PO 03/24/21 09:00 03/27/21 08:00 DC 03/26/21 08:34 Sertraline HCl (Zoloft) 50 mg DAILY PO 03/27/21 09:00 04/10/21 14:38 DC 04/10/21 08:33 Divalproex Sodium (Depakote) 125 mg DAILY PO 03/25/21 09:00 03/28/21 17:53 DC 03/28/21 08:18 Divalproex Sodium (Depakote Sprinkles) 125 mg DAILYWSUP PO 03/24/21 17:00 03/28/21 17:53 DC 03/28/21 17:29 Medroxyprogesterone Acetate (Provera) 2.5 mg DAILY PO 03/26/21 09:00 03/29/21 15:34 DC 03/29/21 08:31 Hydroxyzine HCl (Atarax) 10 mg BID PO 03/26/21 21:00 03/28/21 23:55 DC 03/28/21 20:45 Quetiapine Fumarate (SEROquel) 12.5 mg 0900,1700 PO 03/27/21 09:00 04/10/21 14:38 DC 04/10/21 08:33 Hydroxyzine HCl (Atarax) 10 mg DAILY PO 03/29/21 09:00 03/31/21 09:01 DC 03/31/21 08:29 Divalproex Sodium (Depakote Sprinkles) 250 mg DAILYWSUP PO 03/29/21 17:00 03/31/21 13:11 DC 03/30/21 17:35 Divalproex Sodium (Depakote) 250 mg DAILY PO 03/29/21 09:00 03/31/21 12:56 DC 03/31/21 08:34 Medroxyprogesterone Acetate (Provera) 5 mg DAILY PO 03/30/21 09:00 04/10/21 14:38 DC 04/10/21 08:33 Divalproex Sodium (Depakote) 500 mg 0900,1700 PO 03/31/21 17:00 04/10/21 14:38 DC 04/10/21 08:33 I have reviewed the current psychotropics carefully including drug interactions. Risk benefit ratio favors no change other than as noted in my dictated progress note. Diagnosis: Problems: (1) Impulse control disorder, unspecified (2) Anxiety disorder, unspecified (3) Dementia, vascular, with depression (4) Dementia, vascular, with delusions (5) Dementia in Alzheimer's disease with depression (6) Dementia in Alzheimer's disease with delusions (7) Dementia of the Alzheimer's type with early onset with behavioral disturbance (8) Major neurocognitive disorder ALFREDO HARDIN MD Apr 11, 2021 06:40
--- NOTE | 2021-04-14 01:44 | DS ---
DATE OF DISCHARGE: 04/10/2021 DISCHARGE SUMMARY/PSYCHIATRIC PROGRESS NOTE This late entry, date of service 04/10/2021, covers elements not covered in my initial note of 04/10/2021. REASON FOR ADMISSION: Please refer to the admission history for details. Briefly, the patient is an 86-year-old male initially referred to us from [facility] on account of worsening confusion, aggression towards staff, threatening suicide with no plan. He was combative with cares, believed he was kidnapped and someone was trying to kill him. He was quite paranoid, psychotic, confused and had failed outpatient psychiatric interventions resulting in this referral. SIGNIFICANT FINDINGS AND CLINICAL COURSE: Following admission, the patient was seen daily individually by myself from a psychiatric standpoint, medical followup with Dr. Selby/Dr. Kemp. The patient was ambulating on his own or intermittently in a wheelchair. He was paranoid, psychotic. Adjustments were made in his psychotropics and he seemed to respond to a combination of melatonin 3 mg at bedtime, Zyprexa p.r.n., Zoloft 50 mg a day, Depakote 500 mg twice a day, Provera 5 mg a day, Seroquel 12.5 mg twice a day. He did manifest some sexually inappropriate behaviors initially, which seemed to subside on the Provera. Prior to discharge on 04/10, no CV, , pulmonary, eye, ENT system symptoms on review, reliability poor. MENTAL STATUS EXAMINATION: Oriented to himself. Insight, judgment, recent and remote memory, attention, concentration, fund of knowledge poor consistent with his diagnosis. CONDITION ON DISCHARGE: Improved. FINAL DIAGNOSES: Major neurocognitive disorder, Alzheimer, vascular with delusion, depression, behavioral disturbance, anxiety disorder, unspecified; impulse control disorder, unspecified. Rest unchanged from admission. DISCHARGE MEDICATIONS: Please refer to the MRAD. DISCHARGE INSTRUCTIONS: Outpatient psychiatric and medical followup at the custodial. Time for discharge day management greater than [address]: Miguelito TID: [id number]
== END 2021-04-10 14:30 | DRG 57 ==
LOC: GEROPSY 18:50
PROVIDERS: ADMIT Psychiatry & Neurology Psychiatry; ATTEND Psychiatry & Neurology Psychiatry
DX: G30.9 Alzheimer's disease, unspecified (principal); F02.81 Dementia in other diseases classified elsewhere, unspecified severity, with behavioral disturbance; N18.30 Chronic kidney disease, stage 3 unspecified; R45.851 Suicidal ideations; F01.51 Vascular dementia, unspecified severity, with behavioral disturbance; E86.0 Dehydration; F32.9 Major depressive disorder, single episode, unspecified; F41.9 Anxiety disorder, unspecified; F63.9 Impulse disorder, unspecified; I25.10 Atherosclerotic heart disease of native coronary artery without angina pectoris; H40.9 Unspecified glaucoma; R26.89 Other abnormalities of gait and mobility; R94.4 Abnormal results of kidney function studies; Z20.822 Contact with and (suspected) exposure to COVID-19; Z79.899 Other long term (current) drug therapy; Z85.46 Personal history of malignant neoplasm of prostate; Z86.73 Personal history of transient ischemic attack (TIA), and cerebral infarction without residual deficits; Z95.1 Presence of aortocoronary bypass graft
CPT/HCPCS: 36415; 80053; 80061; 80164; 81001; 82306; 82607; 83036; 83540; 83550; 83735; 84436; 84443; 84480; 85025; 85027; 85379; 86592; 93005; U0003; U0005